=== PATIENT | male | born 1945 | race Caucasian/White ===

== ENCOUNTER → 2016-08-04 | Outpatient (CLI) | payer MEDICARE, OTHER ==
--- NOTE | 2016-08-05 08:57 | EEG ---
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 Patient currently on Dilantin for seizure prophylaxis. Patient being evaluated for possibility of weaning off of Dilantin pending EEG results. Patient has history of alcohol abuse and has not had drinks in over 18 months. AGE: 71Y EEG FINDINGS: A routine 21-channel, awake digital EEG recording was accomplished utilizing the 10 to 20 international system with bipolar and referential montages. The background activity in the most alert resting state consists of a low to medium amplitude, fairly well-developed and well-sustained 6 Hz activity over the posterior head regions. This posterior rhythm attenuates to eye opening. There is a small amount of low amplitude 18 to 20 Hz beta activity seen maximally over the anterior head regions. Muscle and movement artifact was observed on a few occasions during the tracing. Hyperventilation was not performed. Photic stimulation at flash frequencies of 2 to 30 Hz produced a minimal occipital driving response. No epileptiform discharges were seen. Towards the latter portion of the tracing, the patient does drift into spontaneous drowsiness. IMPRESSION: This EEG is moderately abnormal due to diffuse slowing of the EEG background. The EEG failed to reveal any focal, lateralized or epileptiform abnormalities. Clinical correlation is recommended.
== END | disposition home or self-care (01) ==
LOC: NEUROMAIN 12:59
PROVIDERS: ATTEND Family Medicine
DX: R56.9 Unspecified convulsions (principal)
CPT/HCPCS: 95819

== ENCOUNTER 2017-09-08 09:50 | Inpatient (IN) | payer MEDICARE, OTHER ==
--- NOTE | 2017-09-08 11:23 | ED ---
General Adult HPI - General Chief complaint: Psychiatric Symptoms Stated complaint: mental health Time Seen by Provider: 09/08/17 10:00 Source: patient, RN notes reviewed Mode of arrival: ambulatory Limitations: no limitations - History of Present Illness Initial comments: This is a 72-year-old male who presents emergency Department with his brother-in -law who is his guardian. Czorogk-rs-zws wants him to be evaluated because he is not eating is not sleeping and he is not keeping up any of his hygiene. Patient also is starting to have some delusions that his neighbors trying to kill his dog. Patient also refuses to go to bed in his bed and so he sits up in a chair which is not improving his edema or allowing the wounds on his right foot to heal. Patient also has been saying that he may be violent with his neighbor and has threatened some of the caregivers that come to the house. There is been no complaints of any physical problems per the patient and the wgujmlh-lx-miq has not noticed any problems with his breathing has not noticed the patient having any episodes of vomiting or diarrhea and the patient has not looked in any distress to the hjsmsjv-sk-nad. - Related Data Home Medications Medication Instructions Recorded Confirmed Atorvastatin [Lipitor] 40 mg PO DAILY 09/08/17 09/08/17 Metoprolol Succinate (ER) [Toprol 50 mg PO DAILY 09/08/17 09/08/17 Xl] Omeprazole 20 mg PO DAILY 09/08/17 09/08/17 QUEtiapine [SEROquel] 150 mg PO DAILY 09/08/17 09/08/17 clonazePAM [KlonoPIN] 1.5 mg PO DAILY 09/08/17 09/08/17 Allergies Allergy/AdvReac Type Severity Reaction Status Date / Time No Known Allergies Allergy Verified 09/08/17 10:36 Review of Systems ROS Statement: Those systems with pertinent positive or pertinent negative responses have been documented in the HPI. ROS Other: All systems not noted in ROS Statement are negative. Past Medical History Past Medical History: Cancer, Dementia, Hyperlipidemia Additional Past Medical History / Comment(s): prostate CA, leg ulcers History of Any Multi-Drug Resistant Organisms: None Reported Past Surgical History: No Surgical Hx Reported Past Psychological History: Schizophrenia Smoking Status: Current every day smoker Past Alcohol Use History: None Reported Past Drug Use History: None Reported General Exam - General Exam Comments Initial Comments: GENERAL: Patient is well-developed and well-nourished. Patient is nontoxic and well- hydrated and is in no acute distress. ENT: Neck is soft and supple. No significant lymphadenopathy is noted. Oropharynx is clear. Moist mucous membranes. Neck has full range of motion without eliciting any pain. EYES: The sclera were anicteric and conjunctiva were pink and moist. Extraocular movements were intact and pupils were equal round and reactive to light. Eyelids were unremarkable. PULMONARY: Unlabored respirations. Good breath sounds bilaterally. No audible rales rhonchi or wheezing was noted. CARDIOVASCULAR: There is a regular rate and rhythm without any murmurs gallops or rubs. ABDOMEN: Soft and nontender with normal bowel sounds. No palpable organomegaly was noted. There is no palpable pulsatile mass. SKIN: Skin is clear with no lesions or rashes and otherwise unremarkable. NEUROLOGIC: Patient is alert and oriented 2. Cranial nerves II through XII are grossly intact. Motor and sensory are also intact. Normal speech, volume and content. Symmetrical smile. MUSCULOSKELETAL: Normal extremities with adequate strength and full range of motion. Patient has 2 ulcerated areas on the right foot either of which appear infected at this time. Patient is following up with wound care. LYMPHATICS: No significant lymphadenopathy is noted PSYCHIATRIC: Patient is uncooperative does not want to follow any of her procedures. Patient is a very flat affect. Patient has not said anything threatening in the emergency department. Limitations: no limitations Course Vital Signs 09/08/17 09/08/17 09/08/17 09:59 12:25 13:03 Temperature 98.2 F Pulse Rate 70 Respiratory 18 18 16 Rate Blood Pressure 122/71 O2 Sat by Pulse 95 Oximetry 09/08/17 13:29 Temperature Pulse Rate Respiratory 16 Rate Blood Pressure O2 Sat by Pulse Oximetry Medical Decision Making - Medical Decision Making EKG shows sinus bradycardia 56 bpm IN interval is 126 QRS is 96 QT interval 420 QTC is 405. Patient's EKG shows no ST segment elevation or depression.. X-ray shows no acute abnormality. EPS evaluated the patient and determined the patient needed to be transferred to a geriatric psych. - Lab Data Result diagrams: 09/08/17 11:15 09/08/17 11:15 Lab Results 09/08/17 09/08/17 09/08/17 Range/Units 11:15 11:15 12:15 WBC 9.4 (3.8-10.6) k/uL RBC 4.14 L (4.30-5.90) m/uL Hgb 12.8 L (13.0-17.5) gm/dL Hct 38.0 L (39.0-53.0) % MCV 91.6 (80.0-100.0) fL MCH 30.8 (25.0-35.0) pg MCHC 33.6 (31.0-37.0) g/dL RDW 13.5 (11.5-15.5) % Plt Count 274 (150-450) k/uL Neutrophils % 56 % Lymphocytes % 21 % Monocytes % 8 % Eosinophils % 13 % Basophils % 0 % Neutrophils # 5.2 (1.3-7.7) k/uL Lymphocytes # 2.0 (1.0-4.8) k/uL Monocytes # 0.7 (0-1.0) k/uL Eosinophils # 1.2 H (0-0.7) k/uL Basophils # 0.0 (0-0.2) k/uL Sodium 136 L (137-145) mmol/L Potassium 4.8 (3.5-5.1) mmol/L Chloride 101 (98-107) mmol/L Carbon Dioxide 25 (22-30) mmol/L Anion Gap 10 mmol/L BUN 7 L (9-20) mg/dL Creatinine 0.67 (0.66-1.25) mg/dL Est GFR (CKD-EPI)AfAm >90 (>60 ml/min/1.73 sqM) Est GFR (CKD-EPI)NonAf >90 (>60 ml/min/1.73 sqM) Glucose 95 (74-99) mg/dL Calcium 8.9 (8.4-10.2) mg/dL Magnesium 1.7 (1.6-2.3) mg/dL Total Bilirubin 1.0 (0.2-1.3) mg/dL AST 19 (17-59) U/L ALT 28 (21-72) U/L Alkaline Phosphatase 95 (38-126) U/L Total Protein 6.2 L (6.3-8.2) g/dL Albumin 3.8 (3.5-5.0) g/dL Urine Color Yellow Urine Appearance Clear (Clear) Urine pH 8.0 (5.0-8.0) Ur Specific [place] 1.005 (1.001-1.035) Urine Protein Negative (Negative) Urine Glucose (UA) Negative (Negative) Urine Ketones Negative (Negative) Urine Blood Negative (Negative) Urine Nitrite Negative (Negative) Urine Bilirubin Negative (Negative) Urine Urobilinogen 2.0 (<2.0) mg/dL Ur Leukocyte Esterase Negative (Negative) Urine Opiates Screen Not Detected (NotDetected) Ur Oxycodone Screen Not Detected (NotDetected) Urine Methadone Screen Not Detected (NotDetected) Ur Propoxyphene Screen Not Detected (NotDetected) Ur Barbiturates Screen Not Detected (NotDetected) U Tricyclic Antidepress Detected H (NotDetected) Ur Phencyclidine Scrn Not Detected (NotDetected) Ur Amphetamines Screen Not Detected (NotDetected) U Methamphetamines Scrn Not Detected (NotDetected) U Benzodiazepines Scrn Not Detected (NotDetected) Urine Cocaine Screen Not Detected (NotDetected) U Marijuana (THC) Screen Not Detected (NotDetected) Disposition Clinical Impression: Aggressive behavior, Dementia, Foot ulceration Disposition: TRANSFER TO PSYCH HOSP/UNIT Referrals: Chandler Chand MD [Primary Care Provider] - 1-2 days Time of Disposition: 14:39
[2017-09-08 11:38] LABS: Basophils % (A) 0 %; Eosinophils # (A) 1.2 k/uL (0-0.7); Eosinophils % (A) 13 %; HGB 12.8 gm/dL (13.0-17.5); Lymphocytes % (A) 21 %; MCH 30.8 pg (25.0-35.0); MCHC 33.6 g/dL (31.0-37.0); MCV 91.6 fL (80.0-100.0); Mean Platelet Volume 6.4; Monocytes # (A) 0.7 k/uL (0-1.0); Monocytes % (A) 8 %; Neutrophils # (A) 5.2 k/uL (1.3-7.7); Neutrophils % (A) 56 %; Platelet Count 274 k/uL (150-450); RBC 4.14 m/uL (4.30-5.90); RDW 13.5 % (11.5-15.5); WBC 9.4 k/uL (3.8-10.6)
[2017-09-08 11:40] LABS: ALT 28 U/L (21-72); AST 19 U/L (17-59); Albumin 3.8 g/dL (3.5-5.0); Alkaline Phosphatase 95 U/L (38-126); Anion Gap 10 mmol/L; Blood Urea Nitrogen 7 mg/dL (9-20); Calcium 8.9 mg/dL (8.4-10.2); Carbon Dioxide 25 mmol/L (22-30); Chloride 101 mmol/L (98-107); Glucose 95 mg/dL (74-99); Magnesium 1.7 mg/dL (1.6-2.3); Potassium 4.8 mmol/L (3.5-5.1); Sodium 136 mmol/L (137-145); Total Protein 6.2 g/dL (6.3-8.2)
--- NOTE | 2017-09-08 12:05 | XR ---
EXAMINATION TYPE: XR chest 2V DATE OF EXAM: 09/08/2017 COMPARISON: NONE HISTORY: Difficulty breathing TECHNIQUE: Frontal and lateral views of the chest are obtained. FINDINGS: There are left-sided rib fractures thought likely to be chronic, suspect there is some hea ling present. No pneumothorax or pleural effusion. Patient is rotated. Cardiac mediastinal silhouette , pulmonary vascularity and jil within normal limits. The aorta is dense. No focal airspace disease. IMPRESSION: Suspect old trauma. Correlate for appropriate history.
[2017-09-08 12:35] LABS: Appearance,Urine Clear (Clear); Bilirubin,Urine Negative (Negative); Blood,Urine Negative (Negative); Color,Urine Yellow; Glucose,Urine (UA) Negative (Negative); Ketones,Urine Negative (Negative); Leukocyte Esterase,Urine Negative (Negative); Nitrite,Urine Negative (Negative); Protein,Urine Negative (Negative); Specific Gravity,Urine 1.005 (1.001-1.035)
[2017-09-08 12:46] LABS: Amphetamine Screen,Urine Not Detected (NotDetected); Barbiturate Screen,Urine Not Detected (NotDetected); Benzodiazepines Screen,Urine Not Detected (NotDetected); Cocaine Screen,Urine Not Detected (NotDetected); Methadone Screen, Urine Not Detected (NotDetected); Opiate Screen,Urine Not Detected (NotDetected); Oxycodone Screen, Urine Not Detected (NotDetected); Phencyclidine Screen,Urine Not Detected (NotDetected); Tricyclic Antidepressant,Urine Detected (NotDetected); Urn Cannabinoid Scrn Not Detected (NotDetected)
[2017-09-08] MEDS ORDERED: LORazepam 1 MG TAB PO STA ×2 (12:56→16:56)
[2017-09-08] MEDS ORDERED: OLANZapine ODT 10 MG TAB PO STA (17:56)
[2017-09-08] MEDS ORDERED: MAGNESIUM HYDROXIDE 2,400 MG/10 ML CUP PO PRN (20:37)
[2017-09-08] MEDS ORDERED: MAG HYDROX/AL HYDROX/SIMETH 30 ML CUP PO PRN (20:37)
[2017-09-08] MEDS ORDERED: OLANZapine 10 MG TAB PO STA (21:33)
[2017-09-08] MEDS ORDERED: QUEtiapine 50 MG TAB PO SCH (23:00)
[2017-09-09 00:12] VITALS: BMI 24.0
[2017-09-09] MEDS ORDERED: clonazePAM 0.5 MG TAB PO SCH (09:00)
[2017-09-09] MEDS: NICOTINE 14MG/24HR PATCH TRANSDERM SCH (09:03)
[2017-09-09] MEDS: PANTOPRAZOLE 40 MG TABLET PO SCH (09:04)
[2017-09-09] MEDS: METOPROLOL SUCCINATE (ER) 50 MG TAB.ER.24H PO SCH (09:04)
[2017-09-09] MEDS: ATORVASTATIN 40 MG TAB PO SCH (09:04)
[2017-09-09 14:35] LABS: Hemoglobin A1C 5.9 % (4.0-6.0)
[2017-09-09] MEDS ORDERED: OLANZapine 5 MG TAB PO ONE (18:15)
--- NOTE | 2017-09-09 19:19 | HP ---
HISTORY AND PHYSICAL DATE OF SERVICE: 09/09/2017 IDENTIFYING DATA: Patient is a 72-year-old male. The patient resides at home with help from caregivers. He was admitted through the emergency room. CHIEF COMPLAINT: The patient was having delusions including believing neighbors were trying to kill his dog. He had poor appetite and sleep. He had poor self care. He has a diagnosis of dementia. HISTORY OF PRESENTING ILLNESS: I only have limited information available. The patient was not able to provide any history and simply was confused about his circumstances. His kqjbzyn-ro-eox brought him to the emergency room stating that he had not been eating, not been sleeping and was not taking care of personal hygiene. He started talking about how he believe neighbors were trying to kill his dog. Eqenava-wj-pcf indicated that he would refuse to go to bed and would sit up in a chair. He developed edema in the lower extremities and was having problems with a wound on the heel of his right foot that was not healing. The patient had made threats of violence towards his neighbor as well as threats towards the caregivers who were coming to the house. Current psychotropic medications that had been prescribed prior to admission include Seroquel 150 mg a day and Klonopin 1.5 mg a day. There is no information available about the basis for his being on those medications. He is admitted for further evaluation. SUBSTANCE USE HISTORY: Uncertain. PAST MEDICAL HISTORY: The patient currently is on omeprazole, metoprolol and Lipitor. Please refer to medical consultation for further details. FAMILY AND SOCIAL HISTORY: Uncertain. MENTAL STATUS EXAM: Patient was wandering in and out of his room and into the boswell. He would stand and stare. He made various brief comments that were not connected to his current situation. He was not able to answer any questions with meaningful response. He was focused on asking for his shoes. He was quite restless. He seemed to seek some kind of reassurance from 1 on 1 staff who were with him though again his thoughts were vague and disconnected. His affect was anxious. His mood was dysphoric. He did not seem significantly distressed. There was no immediate evidence for thought disorder. On cognitive exam, the patient was not able to answer any formal cognitive questions. He did not know where he was or any of his current circumstances. ASSESSMENT: This 72-year-old male is diagnosed with dementia with behavioral disturbance. He has psychotic symptoms that could relate to depression and/or his dementia. Stressors appear to be primarily related to progression of his cognitive difficulties and inability to manage himself independently, even with the supportive caregivers. DIAGNOSES: 1. Dementia with behavioral disturbance. 2. Rule out major depression. 3. Dementia related psychosis. 4. Hypertension. 5. Hyperlipidemia. 6. Prostate cancer. 7. Leg ulcers. RECOMMENDATION: Patient will be admitted for comprehensive medical psychiatric and psychosocial evaluation. We will engage the patient in individual and group therapeutic activities. I will discontinue Seroquel. Some of the patient's restlessness may relate to acathisia from Seroquel. I will start him on Zyprexa 5 mg 3 times a day as an alternative. I will discontinue Klonopin. The concern for Klonopin is potential exacerbation of cognitive difficulties. He will be evaluated for mood disorder with consideration for starting an antidepressant. We will focus on stabilization and discharge planning. MMBROOKE / LALA: [id number] /
[2017-09-09] MEDS ORDERED: QUEtiapine 50 MG TAB PO SCH (21:00)
[2017-09-09] MEDS: OLANZapine 5 MG TAB PO SCH (22:33)
[2017-09-10] MEDS: ACETAMINOPHEN TAB 325 MG TAB PO PRN ×3 (02:48→20:10)
--- NOTE | 2017-09-10 05:01 | CONS ---
CONSULTATION DATE OF SERVICE: 09/09/2017. REASON FOR CONSULTATION: Right leg wound. HISTORY OF PRESENT ILLNESS: The patient is a 72-year-old male who follows with us in the wound care for treatment of his right lower extremity wound, venous stasis ulcer, currently being treated with Santyl and dressing. The patient has been brought into the ER at [facility] by his brother in law, who is his guardian. Apparently the patient has not been eating or sleeping and is not keeping up with his hygiene. The patient seemed to be slightly saying that his neighbors tried to kill his dog. The patient refused to go to the bed. He has been sitting up in chair all the time. With these symptoms, the patient has been brought to the ER and subsequently has been admitted to the psych floor for further management of the same. Infectious Disease was consulted for management of his lower extremity wound. The patient is currently afebrile. He denies significant pain to the right leg wound area. No significant drainage present. No chest pain. No abdominal pain. No diarrhea. REVIEW OF SYSTEMS: Positive points have been mentioned in HPI. Other systems have been negative. PAST MEDICAL HISTORY: Significant for hyperlipidemia, dementia, prostate cancer, and lower extremity weakness schizophrenia. SOCIAL HISTORY: Current everyday smoker. No drinking or drug use. FAMILY HISTORY: No pertinent findings noticed. ALLERGIES: No known drug allergies. MEDICATIONS: Include the patient is currently on Tylenol, Maalox, Lipitor, Toprol-XL, nicotine patch, Zyprexa and Protonix. EXAMINATION: Blood pressure 128/73 with a pulse of 59, temperature 98.3. He is 91% on room air. General description is an elderly male up in the chair in no distress. No tachypnea or accessory muscles of respiration use. HEENT: Shows no pallor or scleral icterus. Oral mucosa is moist with no thrush. Neck: Trachea central. No thyromegaly. Lungs unlabored breathing. Clear to auscultation anteriorly. No wheeze or crackles. Heart S1, S2. Regular rate and rhythm. Abdomen soft. No tenderness. Right leg does have a wound on the medial aspect as well as the medial foot. Currently with no soft tissue surrounding erythema. Neurological: Patient is awake, alert, oriented x1. Mood and affect normal. LABS: Hemoglobin is 12.1, white count of 9.4, BUN of 7, creatinine 0.67. White count has been normal. Liver enzymes are normal. Urine is negative. Urine drug screen positive for tricyclics. DIAGNOSTIC IMPRESSION AND PLAN: Patient with right leg venous stasis ulcer currently with no evidence of any cellulitis. No significant slough tissue. Will continue local wound care. No need for systemic antibiotic therapy. PLAN: 1. Aquacel dressing to the wound to the right medial leg as well as the foot area followed by a light Ricky wrap to keep some of the swelling down. 2. No need for systemic antibiotic therapy. Thank you for this consultation. Will follow this patient along with you. MMODL / IJN: [id number] /
[2017-09-10] MEDS ORDERED: HALOPERIDOL LACTATE 5 MG/ML 1 ML VIAL IM STA (08:11)
[2017-09-10] MEDS: OLANZapine 5 MG TAB PO SCH ×3 (08:27→20:10)
[2017-09-10] MEDS: PANTOPRAZOLE 40 MG TABLET PO SCH (08:27)
[2017-09-10] MEDS: ATORVASTATIN 40 MG TAB PO SCH (08:27)
[2017-09-10] MEDS: METOPROLOL SUCCINATE (ER) 50 MG TAB.ER.24H PO SCH (09:07)
[2017-09-10] MEDS: NICOTINE 14MG/24HR PATCH TRANSDERM SCH (09:08)
--- NOTE | 2017-09-10 17:56 | PN ---
PROGRESS NOTE DATE OF SERVICE: 09/10/2017. CHIEF COMPLAINT: The patient was having delusions including believing neighbors were trying to kill his dog. He had poor appetite and sleep. He had poor self-care. He has a diagnosis of dementia. INTERVAL HISTORY: The patient has been doing fair. He had a quiet evening last night. Staff documented at 5:45 am the following "patient only slept 1 hour as of 545. Patient remains on 1-1 precautions for safety. Patient is confused, restless asked the same questions repeatedly. No concerns at this time." As of 09/09/2017 at 5:45 am. Staff documented today at 2:46 pm the following, "The patient was getting tag agitated and aggressive with staff. The patient was given his 4 o'clock Zyprexa." The patient has been wondering about today. We continue with 1 to 1. He presents pretty much the same today as was noted this morning. He has a good appetite. He has been generally cooperative. When I saw the patient, he gave me some eye contact. He made a few random comments though it was hard to understand what he was saying. He had a quiet manner. He was out in the boswell area with his 1 on 1 staff. He did not show any purposeful activity or behavior. ASSESSMENT: I will continue the current diagnosis and treatment plan. I will continue psychotropic medications the same. Patient continues to struggle with some behavioral issues, though seems to be making little progress. He appears to tolerate his medications. We will continue to focus on stabilization and discharge planning. I reviewed medical record and reviewed progress with staff. The patient was interviewed. CROW / LALA: [id number] /
[2017-09-11] MEDS: ACETAMINOPHEN TAB 325 MG TAB PO PRN ×2 (00:33→21:57)
[2017-09-11] MEDS: PANTOPRAZOLE 40 MG TABLET PO SCH (09:31)
[2017-09-11] MEDS: ATORVASTATIN 40 MG TAB PO SCH (09:32)
[2017-09-11] MEDS: METOPROLOL SUCCINATE (ER) 50 MG TAB.ER.24H PO SCH (09:32)
[2017-09-11] MEDS: OLANZapine 5 MG TAB PO SCH ×3 (09:32→21:37)
[2017-09-11] MEDS: NICOTINE 14MG/24HR PATCH TRANSDERM SCH ×2 (09:36→15:41)
--- NOTE | 2017-09-11 14:43 | P.PN ---
Progress Note - Text Progress Note Date: 09/11/17 Interval History: Patient is a 72-year-old male who was admitted to the hospital due to threatening to hurt others and also thought that his neighbor was going to kill his dog. The patient also had not been eating well at home nor sleeping well. Patient was living in his own home but had caregivers and he was threatening them. Patient is currently on a one-to-one with staff for safety reasons, patient does intermittently become agitated. Patient when approached requested that he have 1 or 2 cigarettes, when it was explained to the patient that he could not smoke in the hospital he again requested cigarettes and again when he was told that he could not smoke in the hospital he again requested cigarettes. Patient was unable to participate in an interview. Mental Status: Appearance/Attitude: Patient is appropriately dressed, makes occasional eye contact and is unable to participate in an interview. Behavior: Patient is accompanied by staff and is pacing in the boswell Speech/Language: Patient is not spontaneous, when asked questions patient only responded that he wanted to smoke a cigarette. Thought Process: Patient has a poverty of thought, he was focused on asking for a cigarette and was unable to follow most redirection Thought Content: Unable to assess as the patient is unable to participate in an interview Suicidal/Homicidal Ideation: Unable to assess Sensorium/Cognition: Patient is alert and oriented to person further assessment and is not obtained as the patient was not cooperative with the interview Mood/Affect: Patient's mood remains irritable Insight/Judgment: Patient's insight and judgment are impaired Assessment: Patient was admitted after threatening caregivers as well as thinking his neighbors were trying to kill his dog. Patient also apparently was not eating or sleeping well at home. Patient was admitted and placed on Zyprexa 5 mg 3 times a day changed from Klonopin 1.5 mg a day and Seroquel 150 mg a day. In reviewing the chart the patient was evaluated in August 2016 with an EEG to discontinue Dilantin which of been started for alcohol related seizure disorder. At that time the patient had been sober for 18 months. Patient is continued on a one-to-one for safety, he ate some of his meals today and drank ensure and he slept about 4 hours last night. Patient is not attending groups or activities. Plan: Patient will continue on Zyprexa 5 mg 3 times a day if his sleep does not improve may adjust the medication to load more of the dosage at night. Patient has a neurocognitive disorder unknown etiology, per the chart has a history of alcohol use in the past with alcohol related seizures. Patient continues to require hospitalization to stabilize his behavior prior to his being returned to his living situation. Patient's TSH was on the low side we will check his free T4, B12 and folate level.
[2017-09-12 07:23] VITALS: RESP 18; TEMP 98
[2017-09-12] MEDS: PANTOPRAZOLE 40 MG TABLET PO SCH (08:41)
[2017-09-12] MEDS: NICOTINE 14MG/24HR PATCH TRANSDERM SCH (08:41)
[2017-09-12] MEDS: OLANZapine 5 MG TAB PO SCH (08:41)
[2017-09-12] MEDS: ATORVASTATIN 40 MG TAB PO SCH (08:41)
[2017-09-12] MEDS: METOPROLOL SUCCINATE (ER) 50 MG TAB.ER.24H PO SCH (08:41)
--- NOTE | 2017-09-12 12:27 | P.PN ---
Progress Note - Text Progress Note Date: 09/12/17 Interval History: Patient is a 72-year-old male who was seen in his room today. Patient is accompanied by staff that he is on a one-to-one for safety. Patient reported that he has a headache but was unable to elaborate further. Staff reports that patient was able to feed himself once he was given the proper utensil and then reminded to continue eating. Staff also reported that the patient does indicate when he needs to use the bathroom and is able to toilet himself without assistance. Patient slept for only 45 minutes last evening. Mental Status: Appearance/Attitude: Patient is appropriately dressed, makes intermittent eye contact and is cooperative. Behavior: Patient does not exhibit any psychomotor agitation or retardation. Speech/Language: Patient was not spontaneous, he speaks in a normal volume and rhythm his answers are brief 1-2 word responses Thought Process: Patient's response to questions are brief with 1-2 word responses at times no response to questions Thought Content: Patient is not responding to internal stimuli and no paranoid or delusional ideation is elicited are noted. Patient slept for 45 minutes last evening, needs assistance and direction when he is eating. Suicidal/Homicidal Ideation: Patient is not voicing any suicidal or homicidal ideation at this time Sensorium/Cognition: Patient is alert and oriented to person only, is unable to tell me current situation, city or year. Patient's recent and remote memory were not tested, patient has been diagnosed with a neurocognitive disorder. Mood/Affect: Patient's mood is cooperative and his affect is slightly blunted Insight/Judgment: Patient's insight and judgment are impaired Assessment: Patient remains with one-to-one staffing due to safety concerns, there is been no evidence of any aggressive or assaultive behavior. Patient has been cooperative with staff. Patient has been voicing his need to use the bathroom and does not require assistance with this. Patient does require assistance in eating giving him the proper utensil and reminding him to continue eating. Patient is not sleeping well only about 45 minutes a night. Patient is not attending groups or activities. He is not voicing any delusional ideation at this time. Plan: As the patient's diastolic blood pressure has dropped somewhat with the use of Zyprexa and the fact that the patient is not sleeping well and the likelihood of his blood pressure dropping further with an increase in the Zyprexa dose will change the patient's medication to Seroquel. We will begin Seroquel 25 mg in the morning and in the afternoon and begin 100 mg at bedtime and continue to titrate the dose at bedtime to target his lack of sleep and and target his delusional paranoid ideation. Patient's free T4 returned within normal limits. Patient's discharge plans were discussed in team treatment meeting and the patient will most likely not be able to return home. Patient continues to require hospitalization.
[2017-09-12] MEDS ORDERED: QUEtiapine 25 MG TAB PO SCH (15:00)
[2017-09-12 17:14] LABS: Folate, Serum 17.4 ng/mL
[2017-09-12] MEDS: ACETAMINOPHEN TAB 325 MG TAB PO PRN (20:24)
[2017-09-12] MEDS ORDERED: QUEtiapine 100 MG TAB PO SCH (21:00)
[2017-09-13] MEDS: QUEtiapine 50 MG TAB PO SCH ×2 (08:38→15:09)
[2017-09-13] MEDS: METOPROLOL SUCCINATE (ER) 50 MG TAB.ER.24H PO SCH (08:38)
[2017-09-13] MEDS: ATORVASTATIN 40 MG TAB PO SCH (08:38)
[2017-09-13] MEDS: PANTOPRAZOLE 40 MG TABLET PO SCH (08:38)
[2017-09-13] MEDS: NICOTINE 14MG/24HR PATCH TRANSDERM SCH (08:38)
[2017-09-13] MEDS: ACETAMINOPHEN TAB 325 MG TAB PO PRN (08:38)
--- NOTE | 2017-09-13 15:41 | P.PN ---
Progress Note - Text Progress Note Date: 09/13/17 Interval History: Patient is a 72-year-old male who was seen today in his room. Patient was up pacing in the room and needed to have questions addressed to him in a loud voice close by the patient is hard of hearing. Patient continued to pace during the interview trying to shut the door to the room and would respond with brief answers. Most of his responses today were yes or no or asking what was said. Patient has not been showering and refused to allow medical doctor to examine his lower legs. Patient was more agitated this morning and again slept for less than an hour last night. Mental Status: Patient is dressed casually, pacing in the room during the interview, questions need to be spoke in a loud voice close to the patient as he is hard of hearing. Patient becomes increasingly irritated with questions and responds to most of them "what". When he does answer a question is using really yes or no. Patient refused to eat lunch when it was brought into the room lifting the lid off of the addition stating take it away. Patient does not respond to further questions, his mood is easily irritated with questions. Assessment: Patient remains on a one-to-one due to safety, he was slightly more agitated this morning due to the change in medications. He slept for 1 hour last evening. He continues to need assistance with eating, he refused to shower and refused to allow the medical doctor to examine his legs. Patient's B12, folate and T4 all within normal limits. Plan: Patient's Seroquel was increased to 50 mg twice a day in the morning and 150 mg at bedtime to target his agitation, we'll also add Celexa 10 mg in the morning to see if this will assist in decreasing his agitation. Patient will continue with one to one due to safety concerns. There is been no further episodes of assaultive behavior. Dietary consult to address his nutritional status as the patient is not eating well but is occasionally drinking and short. We will monitor his input and output. Patient will require placement upon discharge.
[2017-09-13] MEDS: MELATONIN 3 MG TABLET PO SCH (21:13)
[2017-09-13] MEDS: QUEtiapine 100 MG TAB PO SCH (21:13)
--- NOTE | 2017-09-13 23:47 | PN ---
PROGRESS NOTE DATE OF SERVICE: 09/13/2017. REASON FOR FOLLOWUP: Right leg venous stasis ulcer. INTERVAL HISTORY: I was asked by the nursing staff to come in to evaluate the patient with right leg wound which according to them seemed to have been getting worse. He did have a right lower extremity venous stasis ulcer x2, currently being treated with Aquacel silver dressing. The patient is afebrile; however, the patient has been very agitated. When I went to see the patient, he was refusing for his leg to be examined and wanted us to leave despite multiple attempts family provided. EXAMINATION: Blood pressure 149/64 with a pulse of 70, temperature of 98. He is 93% on room air. General description is an elderly male up in the room in no distress. The patient refused to be examined; hence, the wound could not be evaluated. DIAGNOSTIC IMPRESSION AND PLAN: Patient with right leg pain, currently being treated with Aquacel Silver; however, has been advised to take a picture of his wound and let me know when he would let them examine the wound. Looking at the picture, we will be able to come up with a change in his local therapy. To continue with Aquacel at this point. Continue with supportive care. MMODL / IJN: [id number] /
[2017-09-14] MEDS: IBUPROFEN 400 MG TAB PO PRN ×2 (04:13→16:02)
[2017-09-14] MEDS: CITALOPRAM HYDROBROMIDE 10 MG TAB PO SCH (08:50)
[2017-09-14] MEDS: QUEtiapine 50 MG TAB PO SCH ×2 (08:50→16:02)
[2017-09-14] MEDS: ATORVASTATIN 40 MG TAB PO SCH (08:51)
[2017-09-14] MEDS: PANTOPRAZOLE 40 MG TABLET PO SCH (08:51)
[2017-09-14] MEDS: METOPROLOL SUCCINATE (ER) 50 MG TAB.ER.24H PO SCH (08:51)
[2017-09-14] MEDS: DOCUSATE 100 MG CAP PO SCH (08:53)
[2017-09-14 08:55] VITALS: PULSE 69
[2017-09-14] MEDS: NICOTINE 14MG/24HR PATCH TRANSDERM SCH (09:05)
[2017-09-14] MEDS: ACETAMINOPHEN TAB 325 MG TAB PO PRN (11:50)
--- NOTE | 2017-09-14 15:57 | P.PN ---
Progress Note - Text Progress Note Date: 09/14/17 Interval History: Patient is a 72-year-old male who was seen today on the unit. Patient was much more engageable, making more eye contact and smiling during our conversation. Patient's responses to questions remain brief, usually one or 2 words. Patient did not report any complaints. Mental Status:Appearance/Attitude: Patient is dressed in casual clothes, was a stain on her shirt he's wearing a hat made intermittent eye contact and was cooperative Behavior: Patient did not exhibit any psychomotor agitation or retardation Speech/Language: Patient is not spontaneous in his speech is responses are one or 2 words he speaks in a normal volume and his responses are coherent Thought Process: Patient does have poverty of thought, his responses are brief and non-elaborative Thought Content: Patient does not appear to be responding to internal stimuli, he did not voice any delusional ideation and is much less guarded today. Patient reported that he slept well last night. Suicidal/Homicidal Ideation: Patient denied suicidal or homicidal ideation at this time Sensorium/Cognition: Patient is alert and oriented to person further testing was not performed Mood/Affect: Patient's mood was pleasant and his affect was brighter Insight/Judgment: Patient's insight and judgment remain impaired Assessment: Patient was seen on the unit more today and out of his room, he was more engageable and smiling today. Patient did allow nursing staff to redress his leg without difficulty. Patient has been attending some groups today and did eat breakfast and only some of his lunch. Patient slept for about 4 hours last evening. Patient has not had any episodes of any aggressive, threatening or assaultive behavior on the unit and has been cooperative with staff in taking his medications. Plan: Patient will continue on Seroquel 50 mg twice a day and 150 mg at bedtime , Celexa 10 mg daily, melatonin 3 mg at bedtime. Patient was begun on Colace 100 mg daily to target his bowel function. Patient will continue on his one to one with staff for safety reasons. Patient continues to require hospitalization to further stabilize his behavior.
[2017-09-14] MEDS: MELATONIN 3 MG TABLET PO SCH (21:07)
[2017-09-14] MEDS: QUEtiapine 100 MG TAB PO SCH (21:08)
[2017-09-15] MEDS: IBUPROFEN 400 MG TAB PO PRN ×2 (06:23→14:50)
[2017-09-15] MEDS: ATORVASTATIN 40 MG TAB PO SCH (10:05)
[2017-09-15] MEDS: PANTOPRAZOLE 40 MG TABLET PO SCH (10:05)
[2017-09-15] MEDS: METOPROLOL SUCCINATE (ER) 50 MG TAB.ER.24H PO SCH (10:06)
[2017-09-15] MEDS: CITALOPRAM HYDROBROMIDE 10 MG TAB PO SCH (10:06)
[2017-09-15] MEDS: DOCUSATE 100 MG CAP PO SCH (10:06)
[2017-09-15] MEDS: NICOTINE 14MG/24HR PATCH TRANSDERM SCH ×2 (10:06→10:52)
[2017-09-15] MEDS: QUEtiapine 50 MG TAB PO SCH ×2 (10:06→14:49)
[2017-09-15] MEDS: ACETAMINOPHEN TAB 325 MG TAB PO PRN (11:44)
[2017-09-15] MEDS ORDERED: QUEtiapine 25 MG TAB PO STA (12:45)
[2017-09-15] MEDS ORDERED: NICOTINE POLACRILEX 2 MG GUM BUCCAL PRN (12:45)
--- NOTE | 2017-09-15 14:38 | P.PN ---
Progress Note - Text Progress Note Date: 09/15/17 Interval History: Patient is a 72-year-old male who slept 6 hours last night. Patient was eating much better last night eating 75% of his breakfast, 10% of his lunch and 100% of his dinner. Patient however this morning was slightly more irritable than he has been and continues to refuse to shower. Patient has been continued to be given Tylenol alternating with ibuprofen for the pain secondary to his leg wound. Patient has also been continued on Colace. Patient was focused today on requesting cigarettes and looking for them on the unit and became increasingly agitated while doing this. Mental Status: Appearance/Attitude: Patient is casually dressed, makes intermittent eye contact, is hard of hearing Behavior: Patient did not exhibit any psychomotor retardation but became irritated during our conversation this morning Speech/Language: Patient responds to some questions with brief responses, in a normal volume and rhythm and is coherent but at times is not relevant Thought Process: Patient exhibits poverty of thought Thought Content: Patient does not appear to be responding to internal stimuli, patient slept 6 hours last night and his appetite was improved yesterday. Patient was focused today on requesting a cigarette, told me that he does not like me and refused again to shower. Patient did report that his leg was painful. Suicidal/Homicidal Ideation: Patient denied that he was feeling suicidal at this time and denied that he felt like hurting anyone Sensorium/Cognition: Patient is alert and oriented to person only Mood/Affect: Patient's mood was more irritable today and his affect was appropriate to his mood Insight/Judgment: Patient's insight and judgment are impaired Assessment: Patient appeared to be more irritable today, he was focused on finding cigarettes and continues to refuse to shower. Patient appetite yesterday was improved but patient has not had a bowel movement. Patient was willing to allow staff yesterday to change the dressing on his leg. Patient continues to be compliant with medication. His sleep is improved to 6 hours a night. Plan: Patient continue on melatonin 3 mg at bedtime, Celexa 10 mg in the morning and Seroquel 50 mg twice a day 150 mg at bedtime to target his mood, agitation. Patient remains oriented to person alone and requires a one-to-one for safety reasons area patient continues to refuse to take a shower even with encouragement. Patient will continue to be given alternate Tylenol and ibuprofen to target the pain in his leg. Patient continues on Colace on a scheduled basis. We will continue to encourage the patient to shower and changed from a nicotine patch to Nicorette gum. Patient continues to require hospitalization to stabilize his behavior and continue to look towards a supervised placement
[2017-09-15 20:20] LABS: Glucose,Whole Blood 123 mg/dL (75-99)
[2017-09-15] MEDS ORDERED: LORazepam 2 MG/ML INJ IV STA (20:38)
[2017-09-15] MEDS ORDERED: LORazepam 1 MG TAB PO PRN (20:38)
[2017-09-15] MEDS ORDERED: LORazepam 2 MG/ML INJ ONE (20:40)
[2017-09-15] MEDS ORDERED: LORazepam 2 MG/ML INJ IM PRN (20:42)
[2017-09-15 20:47] LABS: Basophils % (A) 0 %; Eosinophils # (A) 0.4 k/uL (0-0.7); Eosinophils % (A) 5 %; HCT 32.2 % (39.0-53.0); HGB 10.8 gm/dL (13.0-17.5); Lymphocytes # (A) 2.1 k/uL (1.0-4.8); Lymphocytes % (A) 23 %; MCH 30.7 pg (25.0-35.0); MCHC 33.4 g/dL (31.0-37.0); MCV 91.9 fL (80.0-100.0); Mean Platelet Volume 7.2; Monocytes # (A) 0.8 k/uL (0-1.0); Monocytes % (A) 8 %; Neutrophils # (A) 5.5 k/uL (1.3-7.7); Neutrophils % (A) 60 %; Platelet Count 209 k/uL (150-450); RBC 3.51 m/uL (4.30-5.90); RDW 13.5 % (11.5-15.5); WBC 9.2 k/uL (3.8-10.6)
[2017-09-15 20:53] LABS: Anion Gap 13 mmol/L; Blood Urea Nitrogen 15 mg/dL (9-20); Calcium 8.3 mg/dL (8.4-10.2); Carbon Dioxide 19 mmol/L (22-30); Chloride 90 mmol/L (98-107); Glucose 107 mg/dL (74-99); Magnesium 1.3 mg/dL (1.6-2.3); Potassium 4.5 mmol/L (3.5-5.1); Sodium 122 mmol/L (137-145)
[2017-09-15] MEDS ORDERED: HALOPERIDOL LACTATE 5 MG/ML 1 ML VIAL IM STA (21:19)
[2017-09-15] MEDS ORDERED: SODIUM CHLORIDE 0.9% 2,000 ML IV ONE (21:21)
[2017-09-15] MEDS ORDERED: Magnesium Replacement Protocol 1 EACH MISC MISCELLANE PRN (21:22)
[2017-09-15] MEDS ORDERED: MAGNESIUM SULFATE-D5W PMX 1 GM in DEXTROSE/WATER 1 100ML.BAG IVPB SCH (22:00)
[2017-09-15] MEDS: MELATONIN 3 MG TABLET PO SCH (22:10)
[2017-09-15] MEDS: QUEtiapine 100 MG TAB PO SCH (22:10)
--- NOTE | 2017-09-15 22:47 | CT ---
EXAMINATION TYPE: CT brain wo con DATE OF EXAM: 09/15/2017 COMPARISON: None HISTORY: Seizure activity today. CT DLP: 801.5 mGycm Automated exposure control for dose reduction was used. FINDINGS: There is moderate cerebral cortical atrophy. There is no mass effect nor midline shift. There is no s ign of intracranial hemorrhage. Calvarium is intact. IMPRESSION: CEREBRAL ATROPHY. CHRONIC SMALL VESSEL ISCHEMIA.
[2017-09-16 00:08] VITALS: BP 198/84
[2017-09-16] MEDS ORDERED: QUEtiapine 25 MG TAB PO SCH (09:00)
== END 2017-09-15 22:35 | disposition short-term general hospital (02) | DRG 884 ==
LOC: EEVIPCON 09:50 → EC 09:50 → 3MHU 20:17 → EEVIPCON 20:17
PROVIDERS: ADMIT Psychiatry & Neurology Psychiatry; ATTEND Psychiatry & Neurology Psychiatry
DX: F03.91 Unspecified dementia, unspecified severity, with behavioral disturbance (principal); C61 Malignant neoplasm of prostate; E78.5 Hyperlipidemia, unspecified; F17.200 Nicotine dependence, unspecified, uncomplicated; F20.9 Schizophrenia, unspecified; G40.909 Epilepsy, unspecified, not intractable, without status epilepticus; H91.90 Unspecified hearing loss, unspecified ear; I10 Essential (primary) hypertension; I83.019 Varicose veins of right lower extremity with ulcer of unspecified site; Z79.899 Other long term (current) drug therapy
CPT/HCPCS: 36415; 70450; 71046; 80048; 80053; 80061; 80306; 81003; 82075; 82607; 82746; 83036; 83605; 83735; 84439; 84443; 85025; 93005; 99285

== ENCOUNTER 2017-09-15 22:21 | Inpatient (IN) | payer MEDICARE, OTHER ==
[2017-09-15] MEDS ORDERED: VANCOMYCIN IV PER PHARMACY 1 EACH MISC MISCELLANE PRN (23:18)
[2017-09-16] MEDS: HALOPERIDOL LACTATE 5 MG/ML 1 ML VIAL IM PRN ×4 (00:23→20:13)
[2017-09-16] MEDS: VANCOMYCIN 1,500 MG in SODIUM CHLORIDE 0.9% 250 ML IVPB SCH ×2 (01:08→12:27)
[2017-09-16 06:57] LABS: Basophils % (A) 0 %; Eosinophils # (A) 0.3 k/uL (0-0.7); Eosinophils % (A) 3 %; HCT 32.4 % (39.0-53.0); HGB 11.2 gm/dL (13.0-17.5); Lymphocytes # (A) 1.1 k/uL (1.0-4.8); Lymphocytes % (A) 14 %; MCH 31.2 pg (25.0-35.0); MCHC 34.5 g/dL (31.0-37.0); MCV 90.4 fL (80.0-100.0); Monocytes # (A) 0.8 k/uL (0-1.0); Monocytes % (A) 10 %; Neutrophils # (A) 5.6 k/uL (1.3-7.7); Neutrophils % (A) 69 %; Platelet Count 228 k/uL (150-450); RBC 3.58 m/uL (4.30-5.90); RDW 13.6 % (11.5-15.5); WBC 8.1 k/uL (3.8-10.6)
[2017-09-16] MEDS: SODIUM CHLORIDE 0.9% 1,000 ML IV SCH ×2 (06:59→20:15)
[2017-09-16 07:18] LABS: Anion Gap 10 mmol/L; Blood Urea Nitrogen 11 mg/dL (9-20); Carbon Dioxide 19 mmol/L (22-30); Chloride 98 mmol/L (98-107); Glucose 99 mg/dL (74-99); Potassium 3.7 mmol/L (3.5-5.1); Sodium 127 mmol/L (137-145)
--- NOTE | 2017-09-16 15:53 | EEG ---
ELECTROENCEPHALOGRAM REPORT DATE OF EE09/16/2017 ELECTROENCEPHALOGRAPHIC EXAMINATION REPORT: INDICATION FOR EXAMINATION: This patient is a 72-year-old male being evaluated for new-onset seizure and confusion. Patient has history of underlying dementia and psychiatric history. AGE: [age]. EEG FINDINGS: A routine 21-channel awake digital EEG recording was accomplished utilizing the 10-20 international system with bipolar and referential montages. The background activity in the most alert resting state consists of a low to medium amplitude, fairly well developed and well sustained 6-7 Hz activity over the posterior head regions. This posterior rhythm attenuates to eye opening. There is a small amount of low amplitude 18-20 Hz beta activity seen maximally over the anterior head regions. Muscle and movement artifact was observed on a few occasions during the tracing. Hyperventilation was not performed. Photic stimulation at flash frequencies of 2-30 Hz produced a minimal occipital driving response. No epileptiform discharges were seen. IMPRESSION: This EEG is moderately abnormal in a diffuse fashion due to slowing of the EEG background. The EEG failed to reveal any focal, lateralized, or epileptiform abnormalities. Clinical correlation is recommended. MMODL / IJN: [id number] /
--- NOTE | 2017-09-16 16:07 | P.CN ---
Psychiatric Consult - . Consult date: 09/16/17 Consult:: 09/16/17 15:55 IDENTIFYING DATA: 72-year-old single male patient HPI: Patient is admitted to the medical floor [facility] as a transfer from the psychiatric unit. Per history he was admitted due to concern of seizure on the mental health unit. Per chart history the patient had been admitted to the mental health unit with concerns of delusions regarding the neighbors trying to kill his dog and was exhibiting poor appetite sleep and self -care. Per chart history he had apparently made some threats to his neighbor and caregivers. He is admitted to the mental health unit originally with dementia with behavioral disturbance and dementia related psychosis. When asked the patient how he is feeling he says is not feeling very good. I did call and talk to his guardian Blake to obtain further history as the patient was unable to give much history. PAST PSYCHIATRIC HISTORY: Patient admitted been admitted to the psychiatric unit as above. He had his most recent psychotropic medications of Seroquel and Klonopin. On the psychiatric unit he was changed to Zyprexa initially but then most recently was on Seroquel and Celexa had been added. His Klonopin had been discontinued. Per his guardian he had been on Ativan prior to Klonopin and did all right with that, he related that it seemed to have a positive affect in terms of his eating, and no negative effect was reported. PMH: Edema lower extremities, wound on the heel, hypertension, hyperlipidemia, prostate cancer, ALLERGIES: No known ALLERGIES MEDICATIONS: Haldol when necessary, nicotine patch, vancomycin CHEMICAL DEPENDENCY HISTORY: Per his guardian he had a seizure 5 years ago, was drinking at the time., He has not had alcohol for years now. FAMILY PSYCHIATRIC HISTORY: None known at this time FAMILY CHEMICAL DEPENDENCY HISTORY: None known at this time SOCIAL HISTORY: Per chart history he has been living at home with help from caregivers. His guardian relays that the goal is to get him to a supervised living setting. MENTAL STATUS EXAM: He is alert, hard of hearing. He does not show any significant agitation at this point in time. he does not answer question regarding mood. He is not oriented to place or date. He says the date as the "." He is oriented to person. He does not make any reference to thoughts of harm to self or others. IMPRESSIONS: Major neurocognitive disorder with behavioral disturbance. PLAN: At this time we'll decrease the dosage of Haldol from 5 mg to 2 mg as needed. Monitor for any side effects. Haldol will be maintained on a lower dose as needed for any significant agitation. As we are decreasing the dose of Haldol will initiate Ativan as needed for agitation, he has been on Ativan before which seemed to give some benefit in terms of ability to eat. Psychiatry to follow up with patient while on the medical floor, upon medical clearance we'll look at readmission to the psychiatric unit.
[2017-09-16] MEDS ORDERED: VALPROATE SODIUM 1,000 MG in SODIUM CHLORIDE 0.9% 50 ML IVPB STA (16:16)
[2017-09-16] MEDS: NICOTINE 21MG/24HR PATCH TRANSDERM SCH (16:28)
--- NOTE | 2017-09-16 16:42 | P.CNNES ---
History of Present Illness Consult date: 09/16/17 Reason for Consult: Patient with possible seizure activity yesterday on [facility]. History of Present Illness: This patient is a 72-year-old right-handed white male who was seen today on neurology consultation for evaluation of possible new onset seizure. Patient initially was admitted to the mental health unit for further management of dementia with behavioral disturbance. Apparently he was having symptoms of acute psychosis and delirium and family petitioned him for admission to the inpatient psychiatric unit at [facility]. He was admitted there and was being treated by the psychiatrist and yesterday evening apparently had a possible seizure-like event. He became limp and slid down the wall in his room and then had some seizure-like event. He was subtotally transferred to the medical floor for further ongoing evaluation. Patient has been having symptoms of severe delusion regarding his neighbors and paranoid ideation at home. He has a history of dementia as well which is been showing increasing behavioral changes with psychosis. He was treated for these conditions and apparently was taking Seroquel and Zyprexa in the past. All of his medications were discontinued when he was transferred to the medical floor E last night. He is now currently on Haldol with a sitter at his bedside. Patient is in restraints but answers some questions appropriately. He still is very much paranoid in his ideation. He is not following very much in terms of commands at this time but tries to answer the questions to some degree. The patient underwent a routine EEG today which is reviewed and is moderately slow with no epileptiform discharges. The patient apparently has a history of seizures in the past. He is not on any anticonvulsant medication at this time. His neurological examination fails to reveal any focal weakness. He did undergo a computed tomography scan of the brain yesterday on 09/15/2017 which revealed cerebral atrophy and chronic small vessel ischemic changes. We did discuss his case today at length with Dr. Norris who is a psychiatrist seeing him today on the medical floor. We have suggested he may benefit from Depakote for treatment of mood stabilization as well as possibility of any seizure-like activity. Dr. Norris agrees with our recommendation and we will begin the patient on Depakote and continue close monitoring. We did review the results of his EEG today with Dr. Norris as well. He more likely will benefit from Depakote from a mood stabilizing effect. Dr. Norris is also going to cut back on his dose of Haldol to 2 mg every 6 hours as needed. He will require a sitter at this time and most likely will need to go back to the inpatient psychiatric unit when he is medically stable. Neurology is now been consulted for further evaluation and recommendations. Review of Systems Constitutional: Denies chills, Denies fever Eyes: denies blurred vision, denies pain Ears, nose, mouth and throat: Denies headache, Denies sore throat Cardiovascular: Denies chest pain, Denies shortness of breath Respiratory: Denies cough Gastrointestinal: Denies abdominal pain, Denies diarrhea, Denies nausea, Denies vomiting Musculoskeletal: Denies myalgias Integumentary: Denies pruritus, Denies rash Neurological: Reports change in mentation, Reports convulsions, Reports memory loss, Reports seizures, Denies numbness, Denies weakness Psychiatric: Denies anxiety, Denies depression Endocrine: Denies fatigue, Denies weight change Past Medical History Past Medical History: Cancer, Dementia, Hyperlipidemia Additional Past Medical History / Comment(s): prostate CA, leg ulcers History of Any Multi-Drug Resistant Organisms: None Reported Past Surgical History: No Surgical Hx Reported Past Psychological History: Schizophrenia Smoking Status: Current every day smoker Past Alcohol Use History: None Reported Past Drug Use History: None Reported Medications and Allergies Home Medications Medication Instructions Recorded Confirmed Type Atorvastatin [Lipitor] 40 mg PO DAILY 09/08/17 09/15/17 History Metoprolol Succinate (ER) [Toprol 50 mg PO DAILY 09/08/17 09/15/17 History Xl] Omeprazole 20 mg PO DAILY 09/08/17 09/15/17 History QUEtiapine [SEROquel] 150 mg PO DAILY 09/08/17 09/15/17 History clonazePAM [KlonoPIN] 1.5 mg PO DAILY 09/08/17 09/15/17 History Allergies Allergy/AdvReac Type Severity Reaction Status Date / Time No Known Allergies Allergy Verified 09/15/17 23:46 Physical Examination - Vital Signs Vital Signs: Vital Signs Temp Pulse Resp BP Pulse Ox 09/16/17 16:00 16 09/16/17 07:41 97 F L 60 16 97 09/16/17 07:39 17 09/16/17 04:00 97.3 F L 66 17 166/72 96 07/14/18 00:00 97.5 F L 77 17 134/57 93 L 09/15/17 22:48 97.8 F 65 17 150/65 95 Intake and Output 09/16/17 09/16/17 09/16/17 06:59 14:59 22:59 Intake Total 2550 480 Output Total 300 Balance 2250 480 Intake: IV 2300 NS 80mls/hr 2300 Intake, IV Titration 250 480 Amount Sodium Chloride 0.9% 1, 480 000 ml @ 80 mls/hr IV . [id number] [facility] Rx#:[id number] Vancomycin 1,500 mg In 250 Sodium Chloride 0.9% 250 ml @ 125 mls/hr IVPB Q12H [facility] Rx#:[id number] Output: Urine 300 Other: Voiding Method Urinal Urinal Urinal Diaper Diaper Diaper # Voids 1 Weight 86.5 kg - Constitutional General appearance: average body habitus, disheveled - EENT EENT: PERRL, mucous membranes moist - Respiratory Respiratory: lungs clear, normal breath sounds - Cardiovascular Cardiovascular: regular rate, normal S1, normal S2 Extremities: no peripheral edema bilaterally - Gastrointestinal Gastrointestinal: normoactive bowel sounds - Integumentary Integumentary: normal - Neurologic Cranial nerve examination: PERRL, EOMI, V1/V2/V3 grossly intact, face symmetric , tongue midline, intact gag reflex, intact corneal reflex, normal palatal elevation Speech examination: intact Sensorimotor examination: intact Motor examination - right side: 4/5: biceps, triceps, wrist flexion, wrist extension, supervisor looping, hip flexors, knee extensors, dorsiflexion, toe extension (EHL) , plantarflexion Motor examination - left side: 4/5: biceps, triceps, wrist flexion, wrist extension, supervisor looping, hip flexors, knee extensors, dorsiflexion, toe extension (EHL) , plantarflexion Detailed sensory examination: intact Reflex and gait examination: intact Reflexes: 1+: ankle, bicep, knee, tricep - Musculoskeletal Musculoskeletal: no pain - Psychiatric Psychiatric: agitated, cooperative Results - Laboratory Findings CBC and BMP: 09/16/17 06:38 09/16/17 06:38 Abnormal Lab Findings: Abnormal Labs 09/16/17 09/16/17 06:38 06:38 RBC 3.58 L Hgb 11.2 L Hct 32.4 L Sodium 127 L Carbon Dioxide 19 L Creatinine 0.58 L Calcium 8.0 L Assessment and Plan (1) New onset seizure Current Visit: Yes Status: Acute Code(s): R56.9 - UNSPECIFIED CONVULSIONS SNOMED Code(s): 31806524 (2) Dementia Current Visit: No Status: Acute Code(s): F03.90 - UNSPECIFIED DEMENTIA WITHOUT BEHAVIORAL DISTURBANCE SNOMED Code(s): 56403289 (3) Aggressive behavior Current Visit: No Status: Acute Code(s): R46.89 - OTHER SYMPTOMS AND SIGNS INVOLVING APPEARANCE AND BEHAVIOR SNOMED Code(s): 46416844 (4) Foot ulceration Current Visit: No Status: Acute Code(s): L97.509 - NON-PRESSURE CHRONIC ULCER OTH PRT UNSP FOOT W UNSP SEVERITY SNOMED Code(s): 84561787 Plan: This patient is a 72-year-old male initially admitted to the inpatient psychiatric unit for treatment of dementia with behavioral disturbance. Patient was petitioned to the inpatient psychiatric unit by family members as he was showing aggressive behavior as well as delusions and paranoid ideation. He underwent a computed tomography scan of the brain yesterday the results of which are noted above. There is evidence of cerebral atrophy. Yesterday on the inpatient psychiatric unit he appeared to have had a short seizure-like event. This was witnessed by nursing staff. He was transferred to the medical floor for close monitoring and further evaluation. Patient underwent routine EEG today which was reviewed. Results are as noted above. EEG is moderately slow with no epileptiform discharges seen. We did discuss this patient's case in detail today with Dr. Norris who is seeing him from psychiatry. We are recommending to start the patient on Depakote as this may have mood stabilizing effect as well as anticonvulsant property. Dr. Norris is in full agreement and we will load the patient with IV Depacon and continue maintenance Depakote for him. Once again his EEG and CAT scan results were reviewed with Dr. Norris. We will continue close neurological follow-up with the patient. We will obtain a Depakote level and adjust his dose as needed. He is being considered for transfer back to the inpatient psychiatric unit when he is medically stable. We will continue with seizure precautions. He was advised that he cannot drive and [facility] for a period of 6 months following any seizure activity. His overall prognosis at this time remains very guarded. We will continue to follow his progress during this admission. Time with Patient: Greater than 30
--- NOTE | 2017-09-16 17:18 | P.HPIM ---
History of Present Illness H&P Date: 09/16/17 Chief Complaint: Seizures Patient is a 72-year-old male with a known history of dementia, hyperlipidemia, prostate cancer and schizophrenia was initially admitted to psychiatry unit on 09/08/2017 as the patient has not been eating or sleeping and is not keeping up his hygiene. Patient was having some delusions that his neighbors trying to kill his dog. Patient refuses to go to bed and his sitting on the chair most of the time and is not allowing the wounds on his right foot to heal. Patient was come back to [facility] and was brought to the ER. Patient is being treated for acute psychosis in the psychiatric unit. Patient was seen by ID regarding his right foot wound but patient did not allow to examine at the time. On 09/15/2017 after noon patient became more agitated and was having seizure-like activity by he was in the psychiatric unit. Patient was found to have elevated lactic acid level and also his wound on the right leg is foul- smelling. Patient was eventually transferred to inpatient unit and neurology as well as ID was consulted. Patient was combative and not following commands and also having delusions last night patient was restrained. Patient was also started on Haldol along with Ativan. Patient is currently restrained and is having paranoid ideation. Patient underwent EEG today. Otherwise patient is on antibiotics in the form of vancomycin for right lower extremities infection and wound cultures were sent. CT head showed cerebral atrophy. Chronic small wasn't ischemia Sodium 122 lactic acid 3.2, magnesium 1.3 Patient otherwise denied any complaints of chest pain or shortness of breath. Patient is a poor historian. Review of Systems Review of systems could not be obtained from the patient Past Medical History Past Medical History: Cancer, Dementia, Hyperlipidemia Additional Past Medical History / Comment(s): prostate CA, leg ulcers History of Any Multi-Drug Resistant Organisms: None Reported Past Surgical History: No Surgical Hx Reported Past Psychological History: Schizophrenia Smoking Status: Current every day smoker Past Alcohol Use History: None Reported Past Drug Use History: None Reported Medications and Allergies Home Medications Medication Instructions Recorded Confirmed Type Atorvastatin [Lipitor] 40 mg PO DAILY 09/08/17 09/15/17 History Metoprolol Succinate (ER) [Toprol 50 mg PO DAILY 09/08/17 09/15/17 History Xl] Omeprazole 20 mg PO DAILY 09/08/17 09/15/17 History QUEtiapine [SEROquel] 150 mg PO DAILY 09/08/17 09/15/17 History clonazePAM [KlonoPIN] 1.5 mg PO DAILY 09/08/17 09/15/17 History Allergies Allergy/AdvReac Type Severity Reaction Status Date / Time No Known Allergies Allergy Verified 09/15/17 23:46 Physical Exam Vitals: Vital Signs Temp Pulse Resp BP Pulse Ox 09/16/17 07:41 97 F L 60 16 97 09/16/17 07:39 17 09/16/17 04:00 97.3 F L 66 17 166/72 96 09/16/17 00:00 97.5 F L 77 17 134/57 93 L 09/15/17 22:48 97.8 F 65 17 150/65 95 Intake and Output 09/15/17 09/16/17 09/16/17 22:59 06:59 14:59 Intake Total 2550 480 Output Total 300 Balance 2250 480 Intake: IV 2300 NS 80mls/hr 2300 Intake, IV Titration 250 480 Amount Sodium Chloride 0.9% 1, 480 000 ml @ 80 mls/hr IV . [id number] [facility] Rx#:[id number] Vancomycin 1,500 mg In 250 Sodium Chloride 0.9% 250 ml @ 125 mls/hr IVPB Q12H [facility] Rx#:[id number] Output: Urine 300 Other: Voiding Method Urinal Urinal Diaper Diaper # Voids 1 Weight 79 kg 86.5 kg PHYSICAL EXAMINATION: Patient is lying in the bed comfortably, no acute distress, awake alert but delusional and paranoid HEENT: Normocephalic. Neck is supple. Pupils reactive. Nostrils clear. Oral cavity is moist. Ears reveal no drainage. Neck reveals no JVD, carotid bruits, or thyromegaly. CHEST EXAMINATION: Trachea is central. Symmetrical expansion. Lung juarez clear to auscultation and percussion. CARDIAC: Normal S1, S2 with no gallops. No murmurs ABDOMEN: Soft. Bowel sounds normal. No organomegaly. No abdominal bruits. Extremities: reveal no edema. No clubbing or cyanosis. right foot wound is wrapped at this time. Neurologically awake, alert, with well-coordinated movements. No focal deficits noted. Could not provide any history. Skin: No rash or skin lesions. Psychiatric: Noncooperative. Musculoskeletal: No joint swelling or deformity. Normal range of motion. Results CBC & Chem 7: 09/16/17 06:38 09/16/17 06:38 Labs: Abnormal Lab Results - Last 24 Hours (Table) 09/16/17 09/16/17 Range/Units 06:38 06:38 RBC 3.58 L (4.30-5.90) m/uL Hgb 11.2 L (13.0-17.5) gm/dL Hct 32.4 L (39.0-53.0) % Sodium 127 L (137-145) mmol/L Carbon Dioxide 19 L (22-30) mmol/L Creatinine 0.58 L (0.66-1.25) mg/dL Calcium 8.0 L (8.4-10.2) mg/dL Microbiology - Last 24 Hours (Table) 09/16/17 05:00 Wound Culture - Preliminary Leg - Right 09/16/17 05:00 Anaerobic Culture - Preliminary Leg - Right Thrombosis Risk Factor Assmnt - DVT/VTE Prophylaxis DVT/VTE Prophylaxis: Pharmacologic Prophylaxis ordered Assessment and Plan Assessment: Dementia with behavioral changes and acute psychosis Possible new onset seizures Hyponatremia 122 Lactic acidosis Right foot wound infection Combative and violent behavior Hyperlipidemia History of prostate cancer Schizophrenia Plan: Patient will be continued on IV hydration and sodium level improved to 127 now. Patient will be continued on restraints and assess closely. Bedside sitter. Psychiatrically and neurology is following. Continue with antibiotics in the form of vancomycin. Follow up wound cultures. Patient was initially started on Haldol 5 mg every 6 when necessary and was reduced to 2 mg every 6 when necessary along with Depakote was added for mood stabilization. Further recommendations based on the clinical course. We will follow up closely Time with Patient: Greater than 30
[2017-09-16] MEDS: LORazepam 2 MG/ML INJ IM PRN (18:44)
--- NOTE | 2017-09-16 23:23 | P.CONS ---
History of Present Illness - Reason for Consult Consult date: 09/16/17 - Chief Complaint altered behavior - History of Present Illness 72-year-old male presents to the hospital emergency center under the care of his family because of change of his mental status with aggressive behavior and worsening dementia. Because of his decline of his status he was brought onto the mental health unit reduce her need to receive some intervention and new medications to help with his mood. The patient was witnessed to have a short-lived seizure while he was on the mental health unit and was transferred to the medical floor for further intervention. Infectious disease elections requested regarding the cellulitis of the right lower extremity. The patient is unable to provide any history. The nursing staff that are present relates that he has been quite agitated and even with the sitter required some restraints because of his behavior. He was hitting the staff and the profound leg restraint also Stefany was kicking the staff. At this time is modestly comfortable and when the right leg is evaluated he does not kick this observer. Seems to be slightly more calm at this time. The patient' s mental status he is able to voice no other new complaints. Review of Systems ROS unobtainable: due to mental status Past Medical History Past Medical History: Cancer, Dementia, Hyperlipidemia Additional Past Medical History / Comment(s): prostate CA, leg ulcers History of Any Multi-Drug Resistant Organisms: None Reported Past Surgical History: No Surgical Hx Reported Past Psychological History: Schizophrenia Smoking Status: Current every day smoker Past Alcohol Use History: None Reported Past Drug Use History: None Reported Medications and Allergies Home Medications and Allergies Comment(s): Current Medications Atorvastatin Calcium (Lipitor) 40 mg PO DAILY [facility] Haloperidol Lactate (Haldol) 2 mg IM Q6H PRN PRN Reason: Agitation or Acute Psychosis Last Admin: 09/16/17 20:13 Dose: 2 mg Vancomycin HCl 1,500 mg/ (Sodium Chloride) 250 mls @ 125 mls/hr IVPB Q12H [facility] Last Admin: 09/16/17 12:27 Dose: 125 mls/hr Sodium Chloride (Saline 0.9%) 1,000 mls @ 80 mls/hr IV .[id number] [facility] Last Admin: 09/16/17 20:15 Dose: 80 mls/hr Valproic Acid 750 mg/ Sodium (Chloride) 57.5 mls @ 50 mls/hr IVPB Q12H [facility] Lorazepam (Ativan) 0.5 mg IM Q8HR PRN PRN Reason: Agitation Last Admin: 09/16/17 18:44 Dose: 0.5 mg Nicotine (Habitrol 21mg/24hr Patch) 1 patch TRANSDERM DAILY [facility] Last Admin: 09/16/17 16:28 Dose: 1 patch Pantoprazole Sodium (Protonix) 40 mg PO AC-BRKFST [facility] Home Medications Medication Instructions Recorded Confirmed Type Atorvastatin [Lipitor] 40 mg PO DAILY 09/08/17 09/15/17 History Metoprolol Succinate (ER) [Toprol 50 mg PO DAILY 09/08/17 09/15/17 History Xl] Omeprazole 20 mg PO DAILY 09/08/17 09/15/17 History QUEtiapine [SEROquel] 150 mg PO DAILY 09/08/17 09/15/17 History clonazePAM [KlonoPIN] 1.5 mg PO DAILY 09/08/17 09/15/17 History Allergies Allergy/AdvReac Type Severity Reaction Status Date / Time No Known Allergies Allergy Verified 09/15/17 23:46 Physical Exam Vitals: Vital Signs Temp Pulse Resp BP Pulse Ox 09/16/17 20:00 97.1 F L 64 17 144/71 96 09/16/17 16:00 97.4 F L 63 17 143/66 96 09/16/17 07:41 97 F L 60 16 97 09/16/17 07:39 17 09/16/17 04:00 97.3 F L 66 17 166/72 96 09/16/17 00:00 97.5 F L 77 17 134/57 93 L Intake and Output 09/16/17 09/16/17 09/17/17 14:59 22:59 06:59 Intake Total 480 Balance 480 Intake: Intake, IV Titration 480 Amount Sodium Chloride 0.9% 1, 480 000 ml @ 80 mls/hr IV . [id number] [facility] Rx#:[id number] Other: Voiding Method Urinal Urinal Diaper Diaper # Voids 1 9-year-old male who appears to be less agitated this time than the staff as described even just from a short time ago. He allowed evaluation but is not able to provide any specific history. Although he is awake and alert his speech is incoherent. HEENT: Anicteric conjunctiva are pink and moist nasal mucosa grossly intact without significant lesions, there is no thrush. Neck: The neck is supple without significant lymphadenopathy or thyromegaly. Lungs: Symmetrical air entry was noted, expiratory wheezes are scattered no quoc bronchial sounds with dullness or egophony Heart: Regular rate and rhythm with an audible S1-S2, no S3 no S4. There is no significant murmur click or rub, PMI was nondisplaced. Abdomen: Positive bowel sounds soft and nontender without palpable masses or organomegaly. There was no guarding or rebound. Extremities: The upper extremities are in restraints. No lesions are seen around the restraints. IV site is intact and wrapped in place. The left lower extremity has no acute lesions. There is restraints without difficulty. Right lower extremities shows evidence of the restraint. On the restraints as gauze. The restraints is removed and the patient does not kick the observer as apparently he has done to others in the recent past. There is evidence of the swelling erythema and lateral ulceration to the ankle area. He does not complain of tenderness. It is mildly warm to touch. The erythema does not ascend significantly above the ankle. There is no significant inguinal lymphadenopathy and no other lymphadenopathy was noted. Neuro: The patient was awake and confused his speech is incoherent but he was moving upper and lower extremities. Does not seem to have focal weakness. With restraints in place as noted he is much more calm and the sitter and nursing staff are not having great difficulties with the patient at this moment. Results CBC & Chem 7: 09/16/17 06:38 09/16/17 06:38 Labs: Abnormal Lab Results - Last 24 Hours (Table) 09/16/17 09/16/17 Range/Units 06:38 06:38 RBC 3.58 L (4.30-5.90) m/uL Hgb 11.2 L (13.0-17.5) gm/dL Hct 32.4 L (39.0-53.0) % Sodium 127 L (137-145) mmol/L Carbon Dioxide 19 L (22-30) mmol/L Creatinine 0.58 L (0.66-1.25) mg/dL Calcium 8.0 L (8.4-10.2) mg/dL Microbiology - Last 24 Hours (Table) 09/16/17 05:00 Wound Culture - Preliminary Leg - Right 09/16/17 05:00 Anaerobic Culture - Preliminary Leg - Right Laboratory Results WBC 8.1 k/uL (3.8-10.6) 09/16/17 06:38 RBC 3.58 m/uL (4.30-5.90) L 09/16/17 06:38 Hgb 11.2 gm/dL (13.0-17.5) L 09/16/17 06:38 Hct 32.4 % (39.0-53.0) L 09/16/17 06:38 MCV 90.4 fL (80.0-100.0) 09/16/17 06:38 MCH 31.2 pg (25.0-35.0) 09/16/17 06:38 MCHC 34.5 g/dL (31.0-37.0) 09/16/17 06:38 RDW 13.6 % (11.5-15.5) 09/16/17 06:38 Plt Count 228 k/uL (150-450) 09/16/17 06:38 Neutrophils % 69 % 09/16/17 06:38 Lymphocytes % 14 % 09/16/17 06:38 Monocytes % 10 % 09/16/17 06:38 Eosinophils % 3 % 09/16/17 06:38 Basophils % 0 % 09/16/17 06:38 Neutrophils # 5.6 k/uL (1.3-7.7) 09/16/17 06:38 Lymphocytes # 1.1 k/uL (1.0-4.8) 09/16/17 06:38 Monocytes # 0.8 k/uL (0-1.0) 09/16/17 06:38 Eosinophils # 0.3 k/uL (0-0.7) 09/16/17 06:38 Basophils # 0.0 k/uL (0-0.2) 09/16/17 06:38 Sodium 127 mmol/L (137-145) L 09/16/17 06:38 Potassium 3.7 mmol/L (3.5-5.1) 09/16/17 06:38 Chloride 98 mmol/L (98-107) 09/16/17 06:38 Carbon Dioxide 19 mmol/L (22-30) L 09/16/17 06:38 Anion Gap 10 mmol/L 09/16/17 06:38 BUN 11 mg/dL (9-20) 09/16/17 06:38 Creatinine 0.58 mg/dL (0.66-1.25) L 09/16/17 06:38 Est GFR (CKD-EPI)AfAm >90 (>60 ml/min/1.73 sqM) 09/16/17 06:38 Est GFR (CKD-EPI)NonAf >90 (>60 ml/min/1.73 sqM) 09/16/17 06:38 Glucose 99 mg/dL (74-99) 09/16/17 06:38 Plasma Lactic Acid Messi 0.8 mmol/L (0.7-2.0) 09/16/17 00:26 Calcium 8.0 mg/dL (8.4-10.2) L 09/16/17 06:38 Magnesium 2.0 mg/dL (1.6-2.3) 09/16/17 06:38 Microbiology 09/16/17 05:00 Leg - Right Wound Culture - Preliminary 09/16/17 05:00 Leg - Right Anaerobic Culture - Preliminary Assessment and Plan (1) Cellulitis of right lower extremity Narrative/Plan: 9-year-old male who has significant underlying dementia and becoming increasing agitation the home setting and become much more violent and constantly was brought onto the mental health unit. It appears the patient had a seizure-like event and was transferred to the medical unit. At this time he seems to be much more calm and cooperative thin even is a short time ago. Doing well with the current medications. Neurologic evaluation is in process. EEG performed await results. Again patient's quite comfortable at this time. The she does have a cellulose right lower extremity and vancomycin has been initiated. Wound cultures obtained which may further help direct antibiotic therapy. Local wound care will be ordered with the Silvadene wrap if he will tolerate. Can be changed change a couple times a day. 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
[2017-09-17] MEDS: VANCOMYCIN 1,500 MG in SODIUM CHLORIDE 0.9% 250 ML IVPB SCH ×2 (00:50→12:07)
[2017-09-17] MEDS: VALPROATE SODIUM 750 MG in SODIUM CHLORIDE 0.9% 50 ML IVPB SCH ×2 (04:01→16:26)
[2017-09-17] MEDS: HALOPERIDOL LACTATE 5 MG/ML 1 ML VIAL IM PRN ×2 (06:36→21:44)
[2017-09-17 08:36] LABS: Basophils % (A) 0 %; Eosinophils # (A) 0.3 k/uL (0-0.7); Eosinophils % (A) 3 %; HCT 35.9 % (39.0-53.0); HGB 11.9 gm/dL (13.0-17.5); Lymphocytes # (A) 1.2 k/uL (1.0-4.8); Lymphocytes % (A) 13 %; MCHC 33.2 g/dL (31.0-37.0); MCV 90.5 fL (80.0-100.0); Mean Platelet Volume 6.8; Monocytes # (A) 0.8 k/uL (0-1.0); Monocytes % (A) 9 %; Neutrophils # (A) 6.4 k/uL (1.3-7.7); Neutrophils % (A) 72 %; Platelet Count 251 k/uL (150-450); RBC 3.96 m/uL (4.30-5.90); RDW 13.7 % (11.5-15.5); WBC 8.9 k/uL (3.8-10.6)
[2017-09-17 08:41] LABS: Anion Gap 9 mmol/L; Blood Urea Nitrogen 5 mg/dL (9-20); Calcium 8.6 mg/dL (8.4-10.2); Carbon Dioxide 24 mmol/L (22-30); Chloride 100 mmol/L (98-107); Glucose 120 mg/dL (74-99); Potassium 3.3 mmol/L (3.5-5.1); Sodium 133 mmol/L (137-145)
[2017-09-17] MEDS: SODIUM CHLORIDE 0.9% 1,000 ML IV SCH ×2 (08:45→20:09)
[2017-09-17 08:46] LABS: Valproic Acid (Depakene) 64.5 ug/mL
[2017-09-17] MEDS: PANTOPRAZOLE 40 MG TABLET PO SCH (08:46)
[2017-09-17] MEDS: ATORVASTATIN 40 MG TAB PO SCH (08:46)
[2017-09-17] MEDS: NICOTINE 21MG/24HR PATCH TRANSDERM SCH (08:46)
[2017-09-17] MEDS ORDERED: POTASSIUM CHLORIDE ER 20 MEQ TAB.ER PO STA (11:18)
[2017-09-17] MEDS: MULTIVITAMINS, THERA 1 EACH TAB PO SCH (12:04)
--- NOTE | 2017-09-17 14:22 | P.PN ---
Subjective Progress Note Date: 09/17/17 Principal diagnosis: Seizures Patient is a 72-year-old male with a known history of dementia, hyperlipidemia, prostate cancer and schizophrenia was initially admitted to psychiatry unit on 09/08/2017 as the patient has not been eating or sleeping and is not keeping up his hygiene. Patient was having some delusions that his neighbors trying to kill his dog. Patient refuses to go to bed and his sitting on the chair most of the time and is not allowing the wounds on his right foot to heal. Patient was come back to and [facility] and was brought to the ER. Patient is being treated for acute psychosis in the psychiatric unit. Patient was seen by ID regarding his right foot wound but patient did not allow to examine at the time. On 09/15/2017 after noon patient became more agitated and was having seizure-like activity by he was in the psychiatric unit. Patient was found to have elevated lactic acid level and also his wound on the right leg is foul- smelling. Patient was eventually transferred to inpatient unit and neurology as well as ID was consulted. Patient was combative and not following commands and also having delusions last night patient was restrained. Patient was also started on Haldol along with Ativan. Patient is currently restrained and is having paranoid ideation. Patient underwent EEG today. Otherwise patient is on antibiotics in the form of vancomycin for right lower extremities infection and wound cultures were sent. CT head showed cerebral atrophy. Chronic small wasn't ischemia Sodium 122 lactic acid 3.2, magnesium 1.3 Patient otherwise denied any complaints of chest pain or shortness of breath. Patient is a poor historian. 09/17/2017 Patient is still agitated and restrained. Cannot provide any reliable history. Otherwise no fever no chills. No commerce of chest pain or shortness of breath. Patient is being continued on Haldol and Depakote. Psychiatry and neurology on board. Possible transfer to inpatient psychiatric unit. Sodium level improved to 133 now Complete review of systems could not be obtained from the patient Current medications reviewed. Objective - Vital Signs Vital signs: Vital Signs Temp 98.1 F 09/17/17 06:41 Pulse 77 09/17/17 06:41 Resp 21 09/17/17 06:41 BP 164/84 09/17/17 06:41 Pulse Ox 95 09/17/17 06:41 Intake & Output 07/09/17/17 09/17/17 18:59 06:59 18:59 Intake Total 480 Balance 480 Weight 86.5 kg Intake: Intake, IV Titration 480 Amount Sodium Chloride 0.9% 1, 480 000 ml @ 80 mls/hr IV . [id number] [facility] Rx#:[id number] Other: Voiding Method Urinal Urinal Diaper Diaper # Voids 3 - Exam PHYSICAL EXAMINATION: Patient is lying in the bed comfortably, no acute distress, awake alert but delusional and paranoid HEENT: Normocephalic. Neck is supple. Pupils reactive. Nostrils clear. Oral cavity is moist. Ears reveal no drainage. Neck reveals no JVD, carotid bruits, or thyromegaly. CHEST EXAMINATION: Trachea is central. Symmetrical expansion. Lung juarez clear to auscultation and percussion. CARDIAC: Normal S1, S2 with no gallops. No murmurs ABDOMEN: Soft. Bowel sounds normal. No organomegaly. No abdominal bruits. Extremities: reveal no edema. No clubbing or cyanosis. right foot wound is wrapped at this time. Neurologically awake, alert, with well-coordinated movements. No focal deficits noted. Could not provide any history. Skin: No rash or skin lesions. Psychiatric: Noncooperative. Musculoskeletal: No joint swelling or deformity. Normal range of motion. - Labs CBC & Chem 7: 09/17/17 08:20 09/17/17 08:20 Labs: Abnormal Lab Results - Last 24 Hours (Table) 09/17/17 09/17/17 Range/Units 08:20 08:20 RBC 3.96 L (4.30-5.90) m/uL Hgb 11.9 L (13.0-17.5) gm/dL Hct 35.9 L (39.0-53.0) % Sodium 133 L (137-145) mmol/L Potassium 3.3 L (3.5-5.1) mmol/L BUN 5 L (9-20) mg/dL Creatinine 0.50 L (0.66-1.25) mg/dL Glucose 120 H (74-99) mg/dL Microbiology - Last 24 Hours (Table) 09/16/17 05:00 Gram Stain - Preliminary Leg - Right Wound Culture - Preliminary Gram Neg Bacilli Presumptive Staph aureus Assessment and Plan Assessment: Dementia with behavioral changes and acute psychosis Possible new onset seizures Hyponatremia 122-127--133 Lactic acidosis Right foot wound infection Combative and violent behavior Hyperlipidemia History of prostate cancer Schizophrenia Plan: Patient will be continued on IV hydration and sodium level improved to 127--133 now. Patient will be continued on restraints and assess closely. Bedside sitter. Psychiatrically and neurology is following. Continue with antibiotics in the form of vancomycin. Follow up wound cultures. Patient was initially started on Haldol 5 mg every 6 when necessary and was reduced to 2 mg every 6 when necessary along with Depakote was added for mood stabilization. Further recommendations based on the clinical course. We will follow up closely Time with Patient: Greater than 30
--- NOTE | 2017-09-17 23:42 | P.PN ---
Subjective Progress Note Date: 09/17/17 This patient is a 72-year-old male being evaluated for recent episode of new onset seizure and worsening dementia with behavioral difficulties. He was seen by Dr. Norris yesterday from psychiatry and after a long discussion with Dr. Norris we elected to start this patient on Depakote for treatment of seizure as well as mood stabilizer given his rather extensive psychiatric history. His Depakote level today is therapeutic at 64.5. The patient does have restraints for both hands today and does have a sitter at his bedside. As noted he is now therapeutic with his Depakote. Would continue close monitoring of his mood and behavior due to his history of advanced dementia with behavioral difficulties. We will await further recommendations from psychiatry. His overall prognosis at this time remains very guarded. Objective - Vital Signs Vital signs: Vital Signs Temp 98.4 F 09/17/17 15:00 Pulse 89 09/17/17 15:00 Resp 20 09/17/17 15:00 BP 162/80 09/17/17 15:00 Pulse Ox 93 L 09/17/17 15:00 Intake & Output 09/16/17 09/17/17 09/17/17 18:59 06:59 18:59 Intake Total 480 Balance 480 Weight 86.5 kg Intake: Intake, IV Titration 480 Amount Sodium Chloride 0.9% 1, 480 000 ml @ 80 mls/hr IV . [id number] [facility] Rx#:[id number] Other: Voiding Method Urinal Urinal Diaper Diaper # Voids 3 1 - Labs CBC & Chem 7: 09/17/17 08:20 09/17/17 08:20 Labs: Abnormal Lab Results - Last 24 Hours (Table) 09/17/17 09/17/17 Range/Units 08:20 08:20 RBC 3.96 L (4.30-5.90) m/uL Hgb 11.9 L (13.0-17.5) gm/dL Hct 35.9 L (39.0-53.0) % Sodium 133 L (137-145) mmol/L Potassium 3.3 L (3.5-5.1) mmol/L BUN 5 L (9-20) mg/dL Creatinine 0.50 L (0.66-1.25) mg/dL Glucose 120 H (74-99) mg/dL Microbiology - Last 24 Hours (Table) 09/16/17 05:00 Gram Stain - Preliminary Leg - Right Wound Culture - Preliminary Gram Neg Bacilli Presumptive Staph aureus Assessment and Plan (1) New onset seizure Current Visit: Yes Status: Acute Code(s): R56.9 - UNSPECIFIED CONVULSIONS SNOMED Code(s): 52369165 (2) Dementia Current Visit: No Status: Acute Code(s): F03.90 - UNSPECIFIED DEMENTIA WITHOUT BEHAVIORAL DISTURBANCE SNOMED Code(s): 83107166 (3) Aggressive behavior Current Visit: No Status: Acute Code(s): R46.89 - OTHER SYMPTOMS AND SIGNS INVOLVING APPEARANCE AND BEHAVIOR SNOMED Code(s): 73030250 (4) Foot ulceration Current Visit: No Status: Acute Code(s): L97.509 - NON-PRESSURE CHRONIC ULCER OTH PRT UNSP FOOT W UNSP SEVERITY SNOMED Code(s): 88121128 Plan: This patient is a 72-year-old male initially admitted to the inpatient psychiatric unit for treatment of dementia with behavioral disturbance. Patient was petitioned to the inpatient psychiatric unit by family members as he was showing aggressive behavior as well as delusions and paranoid ideation. He underwent a computed tomography scan of the brain yesterday the results of which are noted above. There is evidence of cerebral atrophy. Yesterday on the inpatient psychiatric unit he appeared to have had a short seizure-like event. This was witnessed by nursing staff. He was transferred to the medical floor for close monitoring and further evaluation. Patient underwent routine EEG today which was reviewed. Results are as noted above. EEG is moderately slow with no epileptiform discharges seen. We did discuss this patient's case in detail today with Dr. Norris who is seeing him from psychiatry. We are recommending to start the patient on Depakote as this may have mood stabilizing effect as well as anticonvulsant property. Dr. Norris is in full agreement and we will load the patient with IV Depacon and continue maintenance Depakote for him. Once again his EEG and CAT scan results were reviewed with Dr. Norris. We will continue close neurological follow-up with the patient. We will obtain a Depakote level and adjust his dose as needed. He is being considered for transfer back to the inpatient psychiatric unit when he is medically stable. We will continue with seizure precautions. The patient's Depakote level this morning came back therapeutic is 64.5. He should be maintained on his current dose of Depakote. He was advised that he cannot drive and state of [place] for a period of 6 months following any seizure activity. When medically stable he may be considered for transfer back to the inpatient psychiatric unit. We will continue to monitor his progress closely during this admission. His overall prognosis at this time remains very guarded.
[2017-09-18] MEDS ORDERED: VANCOMYCIN TROUGH DUE 1 EACH MISC MISCELLANE ONE
[2017-09-18] MEDS: VANCOMYCIN 1,500 MG in SODIUM CHLORIDE 0.9% 250 ML IVPB SCH ×2 (00:21→13:19)
[2017-09-18] MEDS: VALPROATE SODIUM 750 MG in SODIUM CHLORIDE 0.9% 50 ML IVPB SCH ×2 (03:23→16:35)
[2017-09-18] MEDS: LORazepam 2 MG/ML INJ IM PRN ×2 (03:55→16:36)
[2017-09-18] MEDS: NICOTINE 21MG/24HR PATCH TRANSDERM SCH (09:25)
[2017-09-18] MEDS: PANTOPRAZOLE 40 MG TABLET PO SCH (09:25)
[2017-09-18] MEDS: ATORVASTATIN 40 MG TAB PO SCH (09:26)
[2017-09-18] MEDS: SODIUM CHLORIDE 0.9% 1,000 ML IV SCH ×2 (09:26→20:11)
[2017-09-18] MEDS: MULTIVITAMINS, THERA 1 EACH TAB PO SCH (09:26)
[2017-09-18] MEDS ORDERED: MINERAL OIL-WHITE PETROLATUM 120 GM JAR TOPICAL PRN (11:20)
[2017-09-18 12:25] LABS: HCT 39.2 % (39.0-53.0); HGB 12.9 gm/dL (13.0-17.5); MCH 30.4 pg (25.0-35.0); MCHC 32.9 g/dL (31.0-37.0); MCV 92.1 fL (80.0-100.0); Mean Platelet Volume 6.6; Platelet Count 299 k/uL (150-450); RBC 4.25 m/uL (4.30-5.90); RDW 14.3 % (11.5-15.5); WBC 12.5 k/uL (3.8-10.6)
[2017-09-18 12:41] LABS: Anion Gap 12 mmol/L; Blood Urea Nitrogen 9 mg/dL (9-20); Carbon Dioxide 20 mmol/L (22-30); Chloride 104 mmol/L (98-107); Glucose 99 mg/dL (74-99); Potassium 4.3 mmol/L (3.5-5.1); Sodium 136 mmol/L (137-145)
--- NOTE | 2017-09-18 16:13 | P.PN ---
Progress Note - Text Progress Note Date: 09/18/17 Interval History: Patient is a 72-year-old male who was transferred to the medical floor after having had a seizure on the inpatient psychiatric unit. Patient was seen today and he was sleeping in bed, he is unrestrained at this time. Patient was not arousable. Mental Status: Mental status was not performed as patient was not arousable and was sleeping Assessment: Patient has been receiving Haldol 2 mg intramuscularly for severe agitation only last received it yesterday at 9:45 PM, he received Ativan 0.5 mg this morning. Patient continues on IV antibiotics and IV Depakote. Per the sitter the patient has refused to get up with physical therapy earlier today and has not eaten all weekend or been drinking much of anything. Patient on the psychiatric unit had showed improvement last while he was up and was eating smiling, however Monday became slightly more agitated and had a seizure. I suspect seizure was secondary to his hyponatremia which was most likely caused by Celexa 10 mg given for 2 days. Plan: [Patient is not taking oral medication and continues to be on IV antibiotics and IV Depakote. Patient has a history of dementia and a recent computed tomography scan so cerebral atrophy and small vessel infarcts. Depakote can certainly assist in controlling of his agitated behavior, once patient is on oral medications he can be assessed to see if additional medication such as an antipsychotic are needed. Patient at this time is not appropriate for transfer to the inpatient psychiatric unit will continue to follow the patient while he is on the medical floor.
--- NOTE | 2017-09-18 16:53 | P.PN ---
Subjective 09/18/2017 is the first time I am taking care of the patient Patient is a 72-year-old male with a known history of dementia, hyperlipidemia, prostate cancer and schizophrenia was initially admitted to psychiatry unit on 09/08/2017 as the patient has not been eating or sleeping and is not keeping up his hygiene. Patient was having some delusions that his neighbors trying to kill his dog. Patient refuses to go to bed and his sitting on the chair most of the time and is not allowing the wounds on his right foot to heal. Patient was come back to and [facility] and was brought to the ER. Patient is being treated for acute psychosis in the psychiatric unit. Patient was seen by ID regarding his right foot wound but patient did not allow to examine at the time. On 09/15/2017 after noon patient became more agitated and was having seizure-like activity by he was in the psychiatric unit. Patient was found to have elevated lactic acid level and also his wound on the right leg is foul- smelling. Patient was eventually transferred to inpatient unit and neurology as well as ID was consulted. Patient was combative and not following commands and also having delusions last night patient was restrained. Patient was also started on Haldol along with Ativan. Patient is currently restrained and is having paranoid ideation. Patient underwent EEG today. Otherwise patient is on antibiotics in the form of vancomycin for right lower extremities infection and wound cultures were sent. CT head showed cerebral atrophy. Chronic small wasn't ischemia Sodium 122 lactic acid 3.2, magnesium 1.3 Patient otherwise denied any complaints of chest pain or shortness of breath. Patient is a poor historian. 09/17/2017 Patient is still agitated and restrained. Cannot provide any reliable history. Otherwise no fever no chills. No commerce of chest pain or shortness of breath. Patient is being continued on Haldol and Depakote. Psychiatry and neurology on board. Possible transfer to inpatient psychiatric unit. Sodium level improved to 133 now 09/18/2017 Patient still agitated, he might need restraints. He cannot provide reliable history. When asking him what her name he said I don't know. In asking where he is staying again he answers I don't know. He denies to be in pain. Denies chest pain or dyspnea. Denies abdominal pain or nausea vomiting. Complete review of systems could not be obtained from the patient Objective - Vital Signs Vital signs: Vital Signs Temp 99.3 F 09/18/17 13:55 Pulse 104 H 09/18/17 13:55 Resp 20 09/18/17 13:55 BP 148/77 09/18/17 13:55 Pulse Ox 99 09/18/17 13:55 Intake & Output 09/17/17 09/18/17 09/18/17 18:59 06:59 18:59 Output Total 200 Balance -200 Output: Urine 200 Other: Voiding Method Diaper Diaper Incontinent Incontinent # Voids 1 2 2 # Bowel Movements 2 1 - Exam -GENERAL: The patient is alert and awake but confused. He is AAOX3, not in any acute distress. Agitated at times made in restraints HEENT: Pupils are round and equally reacting to light. EOMI. No scleral icterus. No conjunctival pallor. Normocephalic, atraumatic. No pharyngeal erythema. No thyromegaly. CARDIOVASCULAR: S1 and S2 present. No murmurs, rubs, or gallops. PULMONARY: Chest is clear to auscultation, no wheezing or crackles. ABDOMEN: Soft, nontender, nondistended, normoactive bowel sounds. No palpable organomegaly. MUSCULOSKELETAL: No joint swelling or deformity. EXTREMITIES: No cyanosis, clubbing, or pedal edema. -Right leg wound, and a dressing. Patient didn't allow me to examine its NEUROLOGICAL: Gross neurological examination did not reveal any focal deficits. SKIN: No rashes. - Labs CBC & Chem 7: 09/18/17 12:13 09/18/17 12:13 Labs: Abnormal Lab Results - Last 24 Hours (Table) 09/18/17 09/18/17 Range/Units 12:13 12:13 WBC 12.5 H (3.8-10.6) k/uL RBC 4.25 L (4.30-5.90) m/uL Hgb 12.9 L (13.0-17.5) gm/dL Sodium 136 L (137-145) mmol/L Carbon Dioxide 20 L (22-30) mmol/L Microbiology - Last 24 Hours (Table) 09/16/17 05:00 Gram Stain - Preliminary Leg - Right Wound Culture - Preliminary Pseudomonas aeruginosa Methicillin resist S. aureus Group D Enterococcus Assessment and Plan Assessment: Dementia with behavioral changes and acute psychosis Metabolic encephalopathy Right leg infection with MRSA and pseudomonas Possible new onset seizures Hyponatremia 122-127--133 Lactic acidosis Right foot wound infection Combative and violent behavior Hyperlipidemia History of prostate cancer Schizophrenia Plan: Patient will be continued on IV hydration and sodium level improved to 127,133, 136. Patient will be continued on restraints if he needs due to agitation and assess closely. Bedside sitter. Psychiatrically and neurology is following. Continue with antibiotics in the form of vancomycin, at Ceftazidime in the view of pseudomonas and wound culture. ID R following the patient. Patient was initially started on Haldol 5 mg every 6 when necessary and was reduced to 2 mg every 6 when necessary along with Depakote was added for mood stabilization. CT of the head without contrast: Pending. Has mild leukocytosis at 12+ K Further recommendations based on the clinical course. We will follow up closely DVT prophylaxis, on SCD, CT of the head is negative from a considered start him on heparin GI prophylaxis and Protonix Prognosis is guarded
--- NOTE | 2017-09-18 20:05 | CT ---
EXAMINATION TYPE: CT brain wo con DATE OF EXAM: 09/18/2017 COMPARISON: 09/15/2017 HISTORY: Altered mental status. CT DLP: 1171 mGycm Automated exposure control for dose reduction was used. FINDINGS: There is cerebral cortical atrophy. There is no mass effect nor midline shift. There is no sign of in tracranial hemorrhage. The calvarium is intact. IMPRESSION: CEREBRAL ATROPHY. NO ACUTE INTRACRANIAL ABNORMALITY. NO CHANGE.
[2017-09-18 22:50] LABS: Anion Gap 9 mmol/L; Blood Urea Nitrogen 9 mg/dL (9-20); Calcium 8.7 mg/dL (8.4-10.2); Carbon Dioxide 21 mmol/L (22-30); Chloride 106 mmol/L (98-107); Glucose 85 mg/dL (74-99); Potassium 3.7 mmol/L (3.5-5.1); Sodium 136 mmol/L (137-145)
--- NOTE | 2017-09-19 00:59 | P.PN ---
Subjective Progress Note Date: 09/18/17 This patient is a 72-year-old male being evaluated for recent episode of new onset seizure and worsening dementia with behavioral difficulties. He was seen by Dr. Norris yesterday from psychiatry and after a long discussion with Dr. Norris we elected to start this patient on Depakote for treatment of seizure as well as mood stabilizer given his rather extensive psychiatric history. His Depakote level is therapeutic at 64.5. The patient does have restraints for both hands today and does have a sitter at his bedside. As noted he is now therapeutic with his Depakote. Would continue close monitoring of his mood and behavior due to his history of advanced dementia with behavioral difficulties. We will await further recommendations from psychiatry. Patient was sent for repeat computed tomography scan of the brain today which reveals cerebral atrophy with no acute intracranial abnormality noted with no change from previous scan done 09/15/2017. Patient has been receiving Haldol for severe agitation. We will await further recommendations from psychiatry. Patient at this time is not appropriate for transfer to the inpatient psychiatric unit. His overall prognosis at this time remains very guarded. Objective - Vital Signs Vital signs: Vital Signs Temp 99.3 F 09/18/17 13:55 Pulse 104 H 09/18/17 13:55 Resp 20 09/18/17 13:55 BP 148/77 09/18/17 13:55 Pulse Ox 99 09/18/17 13:55 Intake & Output 09/18/17 09/18/17 09/19/17 06:59 18:59 06:59 Output Total 200 Balance -200 Output: Urine 200 Other: Voiding Method Diaper Diaper Incontinent Incontinent # Voids 2 1 # Bowel Movements 2 1 - Exam Physical examination: PHYSICAL EXAMINATION: Patient is resting comfortably in bed. VITAL SIGNS: Blood pressure is [148/77]. Heart rate is [104]. Respiration is [20 ]. Temperature is [99.3]. HEENT: Head is atraumatic, neck is supple, there were no carotid bruits. CHEST: Lungs are clear to auscultation and percussion. CARDIAC: S1, S2 normal rate and rhythm. There is no murmur. ABDOMEN: Soft and nontender. Bowel sounds are present. EXTREMITIES: There is no pedal edema. Peripheral pulses are present. Neurological examination: Patient's neurological examination is unchanged from yesterday. - Labs CBC & Chem 7: 09/18/17 12:13 09/18/17 22:25 Labs: Abnormal Lab Results - Last 24 Hours (Table) 09/18/17 09/18/17 Range/Units 12:13 12:13 WBC 12.5 H (3.8-10.6) k/uL RBC 4.25 L (4.30-5.90) m/uL Hgb 12.9 L (13.0-17.5) gm/dL Sodium 136 L (137-145) mmol/L Carbon Dioxide 20 L (22-30) mmol/L Microbiology - Last 24 Hours (Table) 09/16/17 05:00 Gram Stain - Preliminary Leg - Right Wound Culture - Preliminary Pseudomonas aeruginosa Methicillin resist S. aureus Group D Enterococcus Assessment and Plan (1) New onset seizure Current Visit: Yes Status: Acute Code(s): R56.9 - UNSPECIFIED CONVULSIONS SNOMED Code(s): 72230886 (2) Dementia Current Visit: No Status: Acute Code(s): F03.90 - UNSPECIFIED DEMENTIA WITHOUT BEHAVIORAL DISTURBANCE SNOMED Code(s): 65513702 (3) Aggressive behavior Current Visit: No Status: Acute Code(s): R46.89 - OTHER SYMPTOMS AND SIGNS INVOLVING APPEARANCE AND BEHAVIOR SNOMED Code(s): 02429491 (4) Foot ulceration Current Visit: No Status: Acute Code(s): L97.509 - NON-PRESSURE CHRONIC ULCER OTH PRT UNSP FOOT W UNSP SEVERITY SNOMED Code(s): 74370951 Plan: This patient is a 72-year-old male initially admitted to the inpatient psychiatric unit for treatment of dementia with behavioral disturbance. Patient was petitioned to the inpatient psychiatric unit by family members as he was showing aggressive behavior as well as delusions and paranoid ideation. He underwent a computed tomography scan of the brain yesterday the results of which are noted above. There is evidence of cerebral atrophy. Yesterday on the inpatient psychiatric unit he appeared to have had a short seizure-like event. This was witnessed by nursing staff. He was transferred to the medical floor for close monitoring and further evaluation. Patient underwent routine EEG today which was reviewed. Results are as noted above. EEG is moderately slow with no epileptiform discharges seen. We did discuss this patient's case in detail today with Dr. Norris who is seeing him from psychiatry. We are recommending to start the patient on Depakote as this may have mood stabilizing effect as well as anticonvulsant property. Dr. Norris is in full agreement and we will load the patient with IV Depacon and continue maintenance Depakote for him. Once again his EEG and CAT scan results were reviewed with Dr. Norris. We will continue close neurological follow-up with the patient. We will obtain a Depakote level and adjust his dose as needed. He is being considered for transfer back to the inpatient psychiatric unit when he is medically stable. We will continue with seizure precautions. The patient's Depakote level this morning came back therapeutic is 64.5. He should be maintained on his current dose of Depakote. He was advised that he cannot drive and state of [place] for a period of 6 months following any seizure activity. When medically stable he may be considered for transfer back to the inpatient psychiatric unit. Psychiatry did see him today and felt he is still not appropriate for transfer to the inpatient psychiatric unit. He is to continue on Depakote at this time and his most recent level was therapeutic. He does have a sitter at bedside and will need more close supervision once he is transferred back to the inpatient psychiatric unit. We will continue to monitor his progress closely during this admission. His overall prognosis at this time remains very guarded.
[2017-09-19] MEDS: VANCOMYCIN 1,500 MG in SODIUM CHLORIDE 0.9% 250 ML IVPB SCH ×2 (02:03→13:02)
[2017-09-19] MEDS: VALPROATE SODIUM 750 MG in SODIUM CHLORIDE 0.9% 50 ML IVPB SCH ×2 (05:15→16:43)
[2017-09-19] MEDS: HEPARIN SODIUM,PORCINE 5,000 UNIT/ML 1 ML VIAL SQ SCH ×2 (09:19→21:09)
[2017-09-19] MEDS: NICOTINE 21MG/24HR PATCH TRANSDERM SCH (09:19)
[2017-09-19] MEDS: PANTOPRAZOLE 40 MG TABLET PO SCH (09:19)
[2017-09-19] MEDS: ATORVASTATIN 40 MG TAB PO SCH (09:19)
[2017-09-19 09:31] LABS: Basophils % (A) 0 %; Eosinophils # (A) 0.5 k/uL (0-0.7); Eosinophils % (A) 5 %; HCT 37.4 % (39.0-53.0); HGB 12.6 gm/dL (13.0-17.5); Lymphocytes # (A) 1.4 k/uL (1.0-4.8); Lymphocytes % (A) 15 %; MCH 31.2 pg (25.0-35.0); MCHC 33.7 g/dL (31.0-37.0); MCV 92.7 fL (80.0-100.0); Mean Platelet Volume 7.7; Monocytes # (A) 0.8 k/uL (0-1.0); Monocytes % (A) 9 %; Neutrophils # (A) 6.7 k/uL (1.3-7.7); Neutrophils % (A) 69 %; Platelet Count 243 k/uL (150-450); RBC 4.04 m/uL (4.30-5.90); RDW 13.9 % (11.5-15.5); WBC 9.7 k/uL (3.8-10.6)
--- NOTE | 2017-09-19 09:38 | PN ---
PROGRESS NOTE DATE OF SERVICE: 09/18/2017 REASON FOR FOLLOWUP: Right leg venous stasis ulcers with question of cellulitis. INTERVAL HISTORY: The patient is a 72-year-old male who is well known to my service from the wound care center for which the patient had been treated for a right lower extremity venous stasis ulcer. He was recently admitted at the psych floor for which the patient had been taking care of himself. At that time the patient was seen on consultation as was advised an Aquacel Silver dressing. Subsequently, I got a call from the nurses on the floor with concern for worsening of the wound. However, the patient refused to be examined at that time. Now the patient has been admitted to the regular medical floor after apparently the patient did have a seizure-like activity and the patient noted to have more foul-smelling drainage from his right leg wound. The patient has been afebrile though and his white count was normal to slightly elevated 12.5 now. The patient did have wound culture obtained from the leg, which is growing multiple pathogens. He has been treated with vancomycin and ceftazidime added today. The patient has been sedated when seen on rounds this morning and was unable to provide any history. PHYSICAL EXAMINATION: On examination, blood pressure 148/77 with a pulse of 104, temperature 99.3. He is 99% on room air. General description is an elderly male lying in bed in no distress. RESPIRATORY SYSTEM: Unlabored breathing, clear to auscultation anteriorly. HEART: S1, S2. Regular rate and rhythm. ABDOMEN: Soft, no tenderness. Right leg wound is currently clean with no significant redness. No slough tissue swelling or any foul-smelling drainage. LABS: Hemoglobin 12.9, white count of 12.5 with a BUN of 9, creatinine 0.70. DIAGNOSTIC IMPRESSION AND PLAN: Patient with right leg venous stasis ulcer with concern for possible secondary infection. Overall, wound did not look with significant cellulitis today though the wound cultures have been growing multiple pathogen, question of possible superficial of the same currently with vancomycin and Fortaz. Will continue local wound care with Aquacel Silver dressing. Hopefully switch him to oral once his condition improves. Continue supportive care. MMODL / IJN: [id number] /
[2017-09-19 09:46] LABS: Anion Gap 10 mmol/L; Blood Urea Nitrogen 11 mg/dL (9-20); Calcium 8.6 mg/dL (8.4-10.2); Carbon Dioxide 22 mmol/L (22-30); Chloride 106 mmol/L (98-107); Glucose 81 mg/dL (74-99); Potassium 3.6 mmol/L (3.5-5.1); Sodium 138 mmol/L (137-145)
[2017-09-19] MEDS: SODIUM CHLORIDE 0.9% 1,000 ML IV SCH ×2 (10:48→21:09)
--- NOTE | 2017-09-19 11:33 | P.PN ---
Subjective 09/18/2017 is the first time I am taking care of the patient Patient is a 72-year-old male with a known history of dementia, hyperlipidemia, prostate cancer and schizophrenia was initially admitted to psychiatry unit on 09/08/2017 as the patient has not been eating or sleeping and is not keeping up his hygiene. Patient was having some delusions that his neighbors trying to kill his dog. Patient refuses to go to bed and his sitting on the chair most of the time and is not allowing the wounds on his right foot to heal. Patient was come back to and [facility] and was brought to the ER. Patient is being treated for acute psychosis in the psychiatric unit. Patient was seen by ID regarding his right foot wound but patient did not allow to examine at the time. On 09/15/2017 after noon patient became more agitated and was having seizure-like activity by he was in the psychiatric unit. Patient was found to have elevated lactic acid level and also his wound on the right leg is foul- smelling. Patient was eventually transferred to inpatient unit and neurology as well as ID was consulted. Patient was combative and not following commands and also having delusions last night patient was restrained. Patient was also started on Haldol along with Ativan. Patient is currently restrained and is having paranoid ideation. Patient underwent EEG today. Otherwise patient is on antibiotics in the form of vancomycin for right lower extremities infection and wound cultures were sent. CT head showed cerebral atrophy. Chronic small wasn't ischemia Sodium 122 lactic acid 3.2, magnesium 1.3 Patient otherwise denied any complaints of chest pain or shortness of breath. Patient is a poor historian. 09/17/2017 Patient is still agitated and restrained. Cannot provide any reliable history. Otherwise no fever no chills. No commerce of chest pain or shortness of breath. Patient is being continued on Haldol and Depakote. Psychiatry and neurology on board. Possible transfer to inpatient psychiatric unit. Sodium level improved to 133 now 09/18/2017 Patient still agitated, he might need restraints. He cannot provide reliable history. When asking him what her name he said I don't know. In asking where he is staying again he answers I don't know. He denies to be in pain. Denies chest pain or dyspnea. Denies abdominal pain or nausea vomiting. 09/19/2017 Patient is more calm today, he didn't need restraints. Sitter has been discontinued. This after patient was started on ceftazidime, he was also started on Depakote by neurologist. His leukocytosis is improved from 12.5 K to 9.7K Possible metabolic encephalopathy secondary to infection on the top of his dementia. Patient had uric urinary retention and bladder scan showing more than 700 mL of urine. Patient has Tomlinson catheter inserted as per protocol. Started on Flomax. No fever Vitas looks stable. His wound culture is growing 3 bacteria today pseudomonas plus MRSA plus enterococcus Complete review of systems could not be obtained from the patient Objective - Vital Signs Vital signs: Vital Signs Temp 98.2 F 09/19/17 07:00 Pulse 93 09/19/17 07:00 Resp 19 09/19/17 07:00 BP 168/91 09/19/17 07:00 Pulse Ox 98 09/19/17 07:00 Intake & Output 09/18/17 09/19/17 09/19/17 18:59 06:59 18:59 Output Total 200 2100 750 Balance -200 -2100 -750 Output: Urine 200 2100 750 Straight 2100 Uretheral (Tomlinson) 750 Other: Voiding Method Diaper Incontinent # Voids 1 1 # Bowel Movements 1 - Exam -GENERAL: The patient is alert and awake but confused. He is AAOX3, not in any acute distress. Agitated at times made in restraints HEENT: Pupils are round and equally reacting to light. EOMI. No scleral icterus. No conjunctival pallor. Normocephalic, atraumatic. No pharyngeal erythema. No thyromegaly. CARDIOVASCULAR: S1 and S2 present. No murmurs, rubs, or gallops. PULMONARY: Chest is clear to auscultation, no wheezing or crackles. ABDOMEN: Soft, nontender, nondistended, normoactive bowel sounds. No palpable organomegaly. MUSCULOSKELETAL: No joint swelling or deformity. EXTREMITIES: No cyanosis, clubbing, or pedal edema. -Right leg wound with minimal surrounding erythema and swelling NEUROLOGICAL: Gross neurological examination did not reveal any focal deficits. SKIN: No rashes. - Labs CBC & Chem 7: 09/19/17 09:10 09/19/17 09:10 Labs: Abnormal Lab Results - Last 24 Hours (Table) 07/16/18 07/16/18 07/16/18 Range/Units 12:13 12:13 22:25 WBC 12.5 H (3.8-10.6) k/uL RBC 4.25 L (4.30-5.90) m/uL Hgb 12.9 L (13.0-17.5) gm/dL Hct (39.0-53.0) % Sodium 136 L 136 L (137-145) mmol/L Carbon Dioxide 20 L 21 L (22-30) mmol/L 09/19/17 Range/Units 09:10 WBC (3.8-10.6) k/uL RBC 4.04 L (4.30-5.90) m/uL Hgb 12.6 L (13.0-17.5) gm/dL Hct 37.4 L (39.0-53.0) % Sodium (137-145) mmol/L Carbon Dioxide (22-30) mmol/L Microbiology - Last 24 Hours (Table) 09/16/17 05:00 Gram Stain - Preliminary Leg - Right Wound Culture - Preliminary Pseudomonas aeruginosa Methicillin resist S. aureus Group D Enterococcus Assessment and Plan Assessment: Dementia with behavioral changes and acute psychosis Metabolic encephalopathy Right leg infection with MRSA and pseudomonas Possible new onset seizures Hyponatremia 122-127--133 Lactic acidosis Right foot wound infection Combative and violent behavior Hyperlipidemia History of prostate cancer Schizophrenia Plan: Patient will be continued on IV hydration and sodium level improved to 127,133, 136. And 138. discontinue restraints and Bedside sitter. Psychiatrically and neurology teams are following. Continue with antibiotics in the form of vancomycin, at Ceftazidime in the view of pseudomonas and wound culture plus MRSA plus enterococcus. ID team are following the patient. Patient was initially started on Haldol 5 mg every 6 when necessary and was reduced to 2 mg every 6 when necessary along with Depakote was added for mood stabilization. CT of the head without contrast: Negative for acute event. Has mild leukocytosis at 12+ K his resolved. He is on IV fluids Further recommendations based on the clinical course. We will follow up closely DVT prophylaxis, on heparin GI prophylaxis and Protonix Prognosis is guarded
[2017-09-19 11:36] LABS: Appearance,Urine Clear (Clear); Bilirubin,Urine Negative (Negative); Blood,Urine Negative (Negative); Color,Urine Light Yellow; Glucose,Urine (UA) Negative (Negative); Ketones,Urine 2+ (Negative); Leukocyte Esterase,Urine Negative (Negative); Nitrite,Urine Negative (Negative); Protein,Urine Negative (Negative); Specific Gravity,Urine 1.009 (1.001-1.035); Urobilinogen,Urine <2.0 mg/dL (<2.0)
[2017-09-19] MEDS: MULTIVITAMINS, THERA 1 EACH TAB PO SCH (13:02)
--- NOTE | 2017-09-19 14:45 | P.PN ---
Progress Note - Text Progress Note Date: 09/19/17 Interval History: Patient is a 72-year-old male who was seen on the floor today. Patient was sleeping in his bed and arousable by his name, he responded to questions with the word no. Patient did not respond to any further questioning. Mental Status: Patient was lying in his hospital bed, he was not agitated and appeared to not be in any distress. Patient was sleeping and was easily aroused by calling his name which he responded to. When asked any other questions patient responded no to every question. Assessment: Patient was seen today to perform a evaluation for second certification, probate Court was contacted and his hearing scheduled for tomorrow September 20 will be delayed until next week. I spoke with nursing staff and the patient has been cooperative, he has not eaten refused even when assisted to eat. Patient has required catheterization for urinary retention. Patient is out of restraints and no longer has a sitter and has been ambulating from the bed to the bathroom. Patient continues to respond to his name but any further questions are responded with the word no. Patient continues to be on IV antibiotics as well as IV Depakote. Patient sodium level has returned to within normal limits. Plan: Patient is no longer with the sitter and has been cooperative with staff but he is not eating, has been up to the chair today for the first time and walking from his bed to the bathroom. His probate court hearing has been delayed until next week some time. Patient is currently on IV antibiotics as well as IV Depakote, spoke with nursing staff regarding his placement and a dementia unit is being considered at this time. We will continue to follow the patient while he is on the medical floor.
--- NOTE | 2017-09-19 17:30 | P.DS ---
Providers Date of admission: 09/15/17 22:47 Expected date of discharge: 09/15/17 Attending physician: Teja Michael Consults: 09/15/17 23:19 Consult Physician Routine Consulting Provider: Chandler Norris Consult Reason/Comments: 3 west transfer Do you want consulting provider notified?: Yes, Notify in am Consult Physician Routine Consulting Provider: Brenda Villalobos Consult Reason/Comments: wound to right leg/foot Do you want consulting provider notified?: Yes 09/15/17 23:20 Consult Physician Routine Consulting Provider: Charla Allen Consult Reason/Comments: seizure Do you want consulting provider notified?: Yes 09/18/17 09:28 Consult Physician Routine Consulting Provider: Evangelina Antonio Consult Reason/Comments: 3 west transfer Do you want consulting provider notified?: Yes Primary care physician: Stated None Hospital Course: Discharge Diagnosis: Neurocognitive disorder unknown etiology with behavioral disturbance Reason for Admission: Patient is a 72-year-old male who was residing at home with part-time caregivers. Patient was expressing delusions regarding his neighbors stating that they were trying to kill his dog. Patient was not sleeping or eating well and he had not been taking his medications. Patient was also not caring for his ADLs. Patient's [id number] reported that the patient started talking about his neighbors trying to kill his dog and the patient would refuse to go to bed and would sit up in a chair. Patient apparently developed a wound on his right foot he'll that was not healing due to this. Patient had made threats of violence towards his neighbors as well as threats towards the caregivers are her coming to the house. Patient had been prescribed Seroquel 1 or 50 mg a day and Klonopin 1.5 mg a day but is unclear if the patient had been taking his medications. On admission the patient was wandering in and out of his room and into the boswell and he would stand and stare. He made brief comments that were not connected to his current situation. Patient was unable to answer questions with any meaningful response. He was focused on asking for shoes. Patient was not able to answer any formal cognitive questions. He did not know where he was or any of his current circumstances. Hospital Course: Patient was admitted on an involuntary basis, he was placed on one-to-one for safety, routine laboratory studies and a medical consultation was obtained. Patient was placed on Zyprexa 5 mg 3 times a day and his Seroquel and Klonopin were discontinued. Patient showed some improvement but continued to only sleep about 2 hours a night patient needed assistance with eating as he needed assistance in being told to continue to eat which utensils to use. Patient's appetite was poor and he did not eat much but would drink and short. Patient was able to verbalize when he needed to use the bathroom. Patient refused to bathe or shower. Patient was transitioned back to Seroquel and the dose was increased to 75 mg twice a day and 150 mg at bedtime as his blood pressure had started to drop with the Zyprexa. Patient was also begun on Celexa 10 mg daily to decrease his agitation. Patient also was refusing to allow staff to look at his dressing, he was also given Tylenol alternating with ibuprofen for pain. Patient did begin to show some improvement had started to sleep more at night, was smiling and started to eat well when he had a seizure on Monday evening and was transferred to the medical floor. Discharge Plan: Patient was transferred to a medical floor after having a seizure on the psychiatric unit. Patient Condition at Discharge: Serious Plan - Discharge Summary Discharge Rx Participant: No New Discharge Prescriptions: No Action clonazePAM [KlonoPIN] 1.5 mg PO DAILY QUEtiapine [SEROquel] 150 mg PO DAILY Metoprolol Succinate (ER) [Toprol Xl] 50 mg PO DAILY Atorvastatin [Lipitor] 40 mg PO DAILY Omeprazole 20 mg PO DAILY Discharge Medication List Atorvastatin [Lipitor] 40 mg PO DAILY 09/08/17 [History] Metoprolol Succinate (ER) [Toprol Xl] 50 mg PO DAILY 09/08/17 [History] Omeprazole 20 mg PO DAILY 09/08/17 [History] QUEtiapine [SEROquel] 150 mg PO DAILY 09/08/17 [History] clonazePAM [KlonoPIN] 1.5 mg PO DAILY 09/08/17 [History]
[2017-09-19] MEDS: TAMSULOSIN 0.4 MG CAP.ER.24H PO SCH (18:30)
--- NOTE | 2017-09-19 20:04 | P.PN ---
Subjective Progress Note Date: 09/19/17 This patient is a 72-year-old male being evaluated for recent episode of new onset seizure and worsening dementia with behavioral difficulties. He was seen by Dr. Norris yesterday from psychiatry and after a long discussion with Dr. Norris we elected to start this patient on Depakote for treatment of seizure as well as mood stabilizer given his rather extensive psychiatric history. His Depakote level is therapeutic at 64.5. The patient does have restraints for both hands today and does have a sitter at his bedside. As noted he is now therapeutic with his Depakote. Would continue close monitoring of his mood and behavior due to his history of advanced dementia with behavioral difficulties. We will await further recommendations from psychiatry. Patient was sent for repeat computed tomography scan of the brain today which reveals cerebral atrophy with no acute intracranial abnormality noted with no change from previous scan done 09/15/2017. Patient has been receiving Haldol for severe agitation. We will await further recommendations from psychiatry. Patient at this time is not appropriate for transfer to the inpatient psychiatric unit. Patient was seen by psychiatry today for evaluation for second certification period nursing staff indicate the patient has been cooperative but has not been eating very well at all. He is required catheterization for urinary retention. He is out of his restraints at this time but does have a sitter at bedside today. He was sitting up in chair today and did follow simple commands. He has had no further seizure events. He is to continue on his current dose of Depakote. We will check a Depakote level tomorrow morning to make sure he is in the therapeutic range. His overall prognosis at this time remains very guarded. Objective - Vital Signs Vital signs: Vital Signs Temp 96.9 F L 09/19/17 15:00 Pulse 95 09/19/17 15:00 Resp 14 09/19/17 15:00 BP 163/81 09/19/17 15:00 Pulse Ox 99 09/19/17 15:00 Intake & Output 09/19/17 09/19/17 09/20/17 06:59 18:59 06:59 Output Total 2100 1600 Balance -2100 -1600 Output: Urine 2100 1600 Straight 2100 Uretheral (Tomlinson) 750 Other: Voiding Method Indwelling Catheter # Voids 1 - Exam Physical examination: PHYSICAL EXAMINATION: Patient is resting comfortably in bed. VITAL SIGNS: Blood pressure is [163/81]. Heart rate is [95]. Respiration is [14] . Temperature is [96.9]. HEENT: Head is atraumatic, neck is supple, there were no carotid bruits. CHEST: Lungs are clear to auscultation and percussion. CARDIAC: S1, S2 normal rate and rhythm. There is no murmur. ABDOMEN: Soft and nontender. Bowel sounds are present. EXTREMITIES: There is no pedal edema. Peripheral pulses are present. Neurological examination: Patient's neurological examination is unchanged from yesterday. Patient is sitting up in chair today and is out of all restraints. He is following simple commands. His memory and intellectual functions remain impaired. - Labs CBC & Chem 7: 09/19/17 09:10 09/19/17 09:10 Labs: Abnormal Lab Results - Last 24 Hours (Table) 09/18/17 09/19/17 09/19/17 Range/Units 22:25 09:10 11:00 RBC 4.04 L (4.30-5.90) m/uL Hgb 12.6 L (13.0-17.5) gm/dL Hct 37.4 L (39.0-53.0) % Sodium 136 L (137-145) mmol/L Carbon Dioxide 21 L (22-30) mmol/L Urine Ketones 2+ H (Negative) Microbiology - Last 24 Hours (Table) 09/19/17 11:00 Urine Culture - Preliminary Urine,Catheterized 09/16/17 05:00 Gram Stain - Final Leg - Right Wound Culture - Final Pseudomonas aeruginosa Methicillin resist S. aureus Enterococcus faecalis 09/16/17 05:00 Anaerobic Culture - Preliminary Leg - Right Anaerobic Gram Positive Cocci Assessment and Plan (1) New onset seizure Current Visit: Yes Status: Acute Code(s): R56.9 - UNSPECIFIED CONVULSIONS SNOMED Code(s): 55402494 (2) Dementia Current Visit: No Status: Acute Code(s): F03.90 - UNSPECIFIED DEMENTIA WITHOUT BEHAVIORAL DISTURBANCE SNOMED Code(s): 83377606 (3) Aggressive behavior Current Visit: No Status: Acute Code(s): R46.89 - OTHER SYMPTOMS AND SIGNS INVOLVING APPEARANCE AND BEHAVIOR SNOMED Code(s): 27703366 (4) Foot ulceration Current Visit: No Status: Acute Code(s): L97.509 - NON-PRESSURE CHRONIC ULCER OTH PRT UNSP FOOT W UNSP SEVERITY SNOMED Code(s): 13646403 Plan: This patient is a 72-year-old male initially admitted to the inpatient psychiatric unit for treatment of dementia with behavioral disturbance. Patient was petitioned to the inpatient psychiatric unit by family members as he was showing aggressive behavior as well as delusions and paranoid ideation. He underwent a computed tomography scan of the brain yesterday the results of which are noted above. There is evidence of cerebral atrophy. Yesterday on the inpatient psychiatric unit he appeared to have had a short seizure-like event. This was witnessed by nursing staff. He was transferred to the medical floor for close monitoring and further evaluation. Patient underwent routine EEG today which was reviewed. Results are as noted above. EEG is moderately slow with no epileptiform discharges seen. We did discuss this patient's case in detail today with Dr. Norris who is seeing him from psychiatry. We are recommending to start the patient on Depakote as this may have mood stabilizing effect as well as anticonvulsant property. Dr. Norris is in full agreement and we will load the patient with IV Depacon and continue maintenance Depakote for him. Once again his EEG and CAT scan results were reviewed with Dr. Norris. We will continue close neurological follow-up with the patient. We will obtain a Depakote level and adjust his dose as needed. He is being considered for transfer back to the inpatient psychiatric unit when he is medically stable. We will continue with seizure precautions. The patient's Depakote level this morning came back therapeutic is 64.5. He should be maintained on his current dose of Depakote. He was advised that he cannot drive and state [facility] for a period of 6 months following any seizure activity. When medically stable he may be considered for transfer back to the inpatient psychiatric unit. Psychiatry did see him today and felt he is still not appropriate for transfer to the inpatient psychiatric unit. He is to continue on Depakote at this time and his most recent level was therapeutic. Patient was able to come out of his restraints today. He does seem to be more calm and able to communicate with the nursing staff. He does have a sitter at bedside and will need more close supervision once he is transferred back to the inpatient psychiatric unit. We have recommended a Depakote level to be drawn tomorrow morning to make sure he is in a therapeutic range. We will await further recommendations from psychiatry in terms of discharge planning. We will continue to monitor his progress closely during this admission. His overall prognosis at this time remains very guarded.
[2017-09-20] MEDS: VALPROATE SODIUM 750 MG in SODIUM CHLORIDE 0.9% 50 ML IVPB SCH ×2 (08:54→16:59)
[2017-09-20] MEDS: VANCOMYCIN 1,500 MG in SODIUM CHLORIDE 0.9% 250 ML IVPB SCH ×2 (08:54→11:56)
[2017-09-20] MEDS: NICOTINE 21MG/24HR PATCH TRANSDERM SCH (09:12)
[2017-09-20] MEDS: PANTOPRAZOLE 40 MG TABLET PO SCH (09:12)
[2017-09-20] MEDS: ATORVASTATIN 40 MG TAB PO SCH (09:12)
[2017-09-20] MEDS: HEPARIN SODIUM,PORCINE 5,000 UNIT/ML 1 ML VIAL SQ SCH ×2 (09:12→21:18)
[2017-09-20 09:21] LABS: Basophils % (A) 0 %; Eosinophils # (A) 0.6 k/uL (0-0.7); Eosinophils % (A) 7 %; HCT 37.9 % (39.0-53.0); HGB 12.6 gm/dL (13.0-17.5); Lymphocytes # (A) 1.5 k/uL (1.0-4.8); Lymphocytes % (A) 16 %; MCH 30.6 pg (25.0-35.0); MCHC 33.2 g/dL (31.0-37.0); MCV 92.2 fL (80.0-100.0); Mean Platelet Volume 6.5; Monocytes # (A) 0.7 k/uL (0-1.0); Monocytes % (A) 8 %; Neutrophils # (A) 5.8 k/uL (1.3-7.7); Neutrophils % (A) 65 %; Platelet Count 283 k/uL (150-450); RBC 4.12 m/uL (4.30-5.90); RDW 13.9 % (11.5-15.5); WBC 8.9 k/uL (3.8-10.6)
[2017-09-20 09:55] LABS: Anion Gap 9 mmol/L; Blood Urea Nitrogen 10 mg/dL (9-20); Calcium 8.5 mg/dL (8.4-10.2); Carbon Dioxide 22 mmol/L (22-30); Chloride 104 mmol/L (98-107); Glucose 82 mg/dL (74-99); Potassium 3.5 mmol/L (3.5-5.1); Sodium 135 mmol/L (137-145)
[2017-09-20 10:01] LABS: Valproic Acid (Depakene) 86.9 ug/mL
--- NOTE | 2017-09-20 10:48 | PN ---
PROGRESS NOTE DATE OF SERVICE: 09/19/2017 REASON FOR FOLLOWUP: Right lower extremity venous stasis ulcer and secondary cellulitis. INTERVAL HISTORY: The patient is afebrile. Has been breathing comfortably. Seemed to be less agitated. No nausea or vomiting has been noticed or any diarrhea. PHYSICAL EXAMINATION: On examination, blood pressure 163/81 with a pulse of 95, temperature 96.9. He is 98% on room air. General description is an elderly male up in the room in no distress. RESPIRATORY SYSTEM: Unlabored breathing, clear to auscultation anteriorly. HEART: S1, S2. Regular rate and rhythm. ABDOMEN: Soft, no tenderness. Right leg wound is currently dressed up, no obvious drainage on the dressings. LABS: Hemoglobin is 12.6, white count 9.7, BUN of 11, creatinine 0.77. DIAGNOSTIC IMPRESSION AND PLAN: Patient with right lower extremity venous stasis ulcer with secondary cellulitis. Culture with multiple pathogen but these have been superficial . Currently on Fortaz and the vancomycin. Local wound care with Aquacel Silver dressing. Continue supportive care. MMODL / IJN: [id number] /
[2017-09-20] MEDS: MULTIVITAMINS, THERA 1 EACH TAB PO SCH (11:55)
[2017-09-20] MEDS: SODIUM CHLORIDE 0.9% 1,000 ML IV SCH ×2 (11:56→16:25)
--- NOTE | 2017-09-20 13:15 | P.PN ---
Subjective 09/18/2017 is the first time I am taking care of the patient Patient is a 72-year-old male with a known history of dementia, hyperlipidemia, prostate cancer and schizophrenia was initially admitted to psychiatry unit on 09/08/2017 as the patient has not been eating or sleeping and is not keeping up his hygiene. Patient was having some delusions that his neighbors trying to kill his dog. Patient refuses to go to bed and his sitting on the chair most of the time and is not allowing the wounds on his right foot to heal. Patient was come back to and [facility] and was brought to the ER. Patient is being treated for acute psychosis in the psychiatric unit. Patient was seen by ID regarding his right foot wound but patient did not allow to examine at the time. On 09/15/2017 after noon patient became more agitated and was having seizure-like activity by he was in the psychiatric unit. Patient was found to have elevated lactic acid level and also his wound on the right leg is foul- smelling. Patient was eventually transferred to inpatient unit and neurology as well as ID was consulted. Patient was combative and not following commands and also having delusions last night patient was restrained. Patient was also started on Haldol along with Ativan. Patient is currently restrained and is having paranoid ideation. Patient underwent EEG today. Otherwise patient is on antibiotics in the form of vancomycin for right lower extremities infection and wound cultures were sent. CT head showed cerebral atrophy. Chronic small wasn't ischemia Sodium 122 lactic acid 3.2, magnesium 1.3 Patient otherwise denied any complaints of chest pain or shortness of breath. Patient is a poor historian. 09/17/2017 Patient is still agitated and restrained. Cannot provide any reliable history. Otherwise no fever no chills. No commerce of chest pain or shortness of breath. Patient is being continued on Haldol and Depakote. Psychiatry and neurology on board. Possible transfer to inpatient psychiatric unit. Sodium level improved to 133 now 09/18/2017 Patient still agitated, he might need restraints. He cannot provide reliable history. When asking him what her name he said I don't know. In asking where he is staying again he answers I don't know. He denies to be in pain. Denies chest pain or dyspnea. Denies abdominal pain or nausea vomiting. 09/19/2017 Patient is more calm today, he didn't need restraints. Sitter has been discontinued. This after patient was started on ceftazidime, he was also started on Depakote by neurologist. His leukocytosis is improved from 12.5 K to 9.7K Possible metabolic encephalopathy secondary to infection on the top of his dementia. Patient had uric urinary retention and bladder scan showing more than 700 mL of urine. Patient has Tomlinson catheter inserted as per protocol. Started on Flomax. No fever Vitas looks stable. His wound culture is growing 3 bacteria today pseudomonas plus MRSA plus enterococcus On 09/20/2017 Patient remains to be calm. His of restraints and bedside sitter. Today he could tell me his name is Radha gao, which she couldn't do that over the last 2 days. However he still disoriented to time place and person. His been evaluated by psychiatrist and discharge him from their service. And the postponed his court hearing 2 next week. Patient had a fever yesterday of 100.0, but no leukocytosis. Wound culture: pseudomonas plus MRSA plus enterococcus , and there are and aerobic pending positive culture. Patient continue with appendectomy Vanco and Zosyn. We will do x-ray of the right leg Patient has urinary retention Cystoscopy on IV Depakote, and Depakote level is followed up. Neurology following the case Complete review of systems could not be obtained from the patient Objective - Vital Signs Vital signs: Vital Signs Temp 98.9 F 09/20/17 05:57 Pulse 74 09/20/17 05:57 Resp 18 09/20/17 05:57 BP 149/76 09/20/17 05:57 Pulse Ox 99 09/20/17 05:57 Intake & Output 09/19/17 09/20/17 09/20/17 18:59 06:59 18:59 Output Total 1600 0 Balance -1600 -2049 Output: Urine 1600 0 Uretheral (Tomlinson) 750 Other: Voiding Method Indwelling Catheter Indwelling Catheter Indwelling Catheter # Bowel Movements 0 - Exam -GENERAL: The patient is alert and awake but confused. He is AAOX3, not in any acute distress. Agitated at times made in restraints HEENT: Pupils are round and equally reacting to light. EOMI. No scleral icterus. No conjunctival pallor. Normocephalic, atraumatic. No pharyngeal erythema. No thyromegaly. CARDIOVASCULAR: S1 and S2 present. No murmurs, rubs, or gallops. PULMONARY: Chest is clear to auscultation, no wheezing or crackles. ABDOMEN: Soft, nontender, nondistended, normoactive bowel sounds. No palpable organomegaly. MUSCULOSKELETAL: No joint swelling or deformity. EXTREMITIES: No cyanosis, clubbing, or pedal edema. -Right leg wound with minimal surrounding erythema and swelling NEUROLOGICAL: Gross neurological examination did not reveal any focal deficits. SKIN: No rashes. - Labs CBC & Chem 7: 09/20/17 08:50 09/20/17 08:50 Labs: Abnormal Lab Results - Last 24 Hours (Table) 09/20/17 09/20/17 Range/Units 08:50 08:50 RBC 4.12 L (4.30-5.90) m/uL Hgb 12.6 L (13.0-17.5) gm/dL Hct 37.9 L (39.0-53.0) % Sodium 135 L (137-145) mmol/L Microbiology - Last 24 Hours (Table) 09/16/17 05:00 Anaerobic Culture - Final Leg - Right Anaerobic Gram Positive Cocci Anaerobic Gm Negative Bacilli 09/19/17 11:00 Urine Culture - Final Urine,Catheterized 09/16/17 05:00 Gram Stain - Final Leg - Right Wound Culture - Final Pseudomonas aeruginosa Methicillin resist S. aureus Enterococcus faecalis Assessment and Plan Assessment: Dementia with behavioral changes and acute psychosis Metabolic encephalopathy Right leg infection with MRSA and pseudomonas Possible new onset seizures Hyponatremia 122-127--133 Lactic acidosis Right foot wound infection Combative and violent behavior Hyperlipidemia History of prostate cancer Schizophrenia Urinary retention, Tomlinson is placed Plan: Patient will be continued on IV hydration and sodium level improved to 127,133, 135. . discontinue restraints and Bedside sitter. Psychiatrically and neurology teams are following. Psychiatry discharge the patient from their service, And postponed the court date for next week. Continue with antibiotics in the form of vancomycin, at Ceftazidime in the view of pseudomonas and wound culture plus MRSA plus enterococcus. ID team are following the patient. Patient was initially started on Haldol 5 mg every 6 when necessary and was reduced to 2 mg every 6 when necessary along with Depakote was added for mood stabilization. CT of the head without contrast: Negative for acute event. Has mild leukocytosis at 12+ K his resolved. He had urinary retention, started on Flomax and straight cath when necessary Further recommendations based on the clinical course. We will follow up closely DVT prophylaxis, on heparin GI prophylaxis and Protonix Prognosis is guarded
--- NOTE | 2017-09-20 15:02 | XR ---
EXAMINATION TYPE: XR tibia fibula RT DATE OF EXAM: 09/20/2017 CLINICAL HISTORY: pain TECHNIQUE: AP and lateral images of the right tibia and fibula are obtained. COMPARISON: None. FINDINGS: There is no acute fracture/dislocation evident. The joint spaces appear within normal patricia its. The overlying soft tissue appears unremarkable. No evidence for osteomyelitis, radiopaque forei gn body or bony destructive process. IMPRESSION: There is no acute fracture or dislocation seen. ICD 10 NO FRACTURE, INITIAL EVALUATION
[2017-09-20] MEDS ORDERED: QUEtiapine 25 MG TAB PO PRN (15:41)
--- NOTE | 2017-09-20 15:59 | P.PN ---
Progress Note - Text Progress Note Date: 09/20/17 Interval History: Patient is a 72-year-old male who was seen today, patient is sitting in his hospital bed watching television. Patient responded to his name , became irritable when I asked him questions regarding if he had been eating or not. Patient is hard of hearing and needs to have questions spoken loudly and close to him. Patient then stated that he wasn't to blame. Patient's responses to questions were either yes or no or he stated he wasn't blame. Patient one point told me he did not want to speak with me further. Mental Status: [Appearance/Attitude: Patient is dressed in a hospital gown, he is lying in a hospital bed makes intermittent eye contact Behavior: Patient is not exhibiting any psychomotor agitation Speech/Language: Patient speaks in a normal volume and rhythm Thought Process: Patient's responses are yes or no or brief sentences Thought Content: Patient is not responding to internal stimuli, he can become accusatory and was suspicious that I was blaming him for something. Patient stated that he no longer wanted to speak with me. Suicidal/Homicidal Ideation: Patient is not voicing any suicidal or homicidal statements Sensorium/Cognition: Patient is alert and oriented to person only Mood/Affect: Patient's mood is irritable and suspicious and his affect is blunted Insight/Judgment: Recent insight and judgment are impaired Assessment: Patient is now more alert and sitting up in his bed however he remains oriented only to person. Patient is not eating, did eat some of his breakfast this morning but has not been eating. Patient now has a Tomlinson catheter, he was suspicious of some of the medications that the nurse gave him this morning. Patient has been taking his oral medication. Patient was more irritable today when I saw him asking me to leave stating he didn't want to talk to me, thought I was blaming him for something. Patient is hard of hearing and even when the questions are repeated to the patient close to his ear and loudly he does not comprehend most questions. Plan: [Patient continues on IV Depakote for the seizure that he had. Patient has not received any Haldol since Monday evening and his irritability and suspiciousness have increased. Patient continues to not eat, has been taking his medications although is becoming more suspicious and was quite irritable and asking me to leave while I saw him today. I will restart Seroquel 150 mg by mouth at bedtime to target his suspiciousness and irritability, as well as Seroquel 25 mg every 8 hours when necessary for agitation. A second certification was completed today and the patient's hearing will be on 2017. I will continue to follow the patient and adjust his medications to control his irritability and suspiciousness. Hopefully the Depakote will assist in controlling some of the agitation.
[2017-09-20] MEDS: LORazepam 2 MG/ML INJ IM PRN (16:55)
[2017-09-20] MEDS: TAMSULOSIN 0.4 MG CAP.ER.24H PO SCH (17:39)
[2017-09-20] MEDS ORDERED: QUEtiapine 100 MG TAB PO SCH (21:00)
--- NOTE | 2017-09-20 23:17 | P.PN ---
Subjective Progress Note Date: 09/20/17 This patient is a 72-year-old male being evaluated for recent episode of new onset seizure and worsening dementia with behavioral difficulties. He was seen by Dr. Norris yesterday from psychiatry and after a long discussion with Dr. Norris we elected to start this patient on Depakote for treatment of seizure as well as mood stabilizer given his rather extensive psychiatric history. His Depakote level is therapeutic today with a level of 86.9. The patient does have restraints for both hands today and does have a sitter at his bedside. As noted he is now therapeutic with his Depakote. Would continue close monitoring of his mood and behavior due to his history of advanced dementia with behavioral difficulties. We will await further recommendations from psychiatry. Patient was sent for repeat computed tomography scan of the brain today which reveals cerebral atrophy with no acute intracranial abnormality noted with no change from previous scan done 09/15/2017. Patient has been receiving Haldol for severe agitation. We will await further recommendations from psychiatry. Patient at this time is not appropriate for transfer to the inpatient psychiatric unit. Patient was seen by psychiatry today for evaluation for second certification period nursing staff indicate the patient has been cooperative but has not been eating very well at all. He is required catheterization for urinary retention. He is out of his restraints at this time but does have a sitter at bedside today. He was sitting up in chair today and did follow simple commands. He has had no further seizure events. He is to continue on his current dose of Depakote. His overall prognosis at this time remains very guarded. Objective - Vital Signs Vital signs: Vital Signs Temp 98.9 F 09/20/17 05:57 Pulse 74 09/20/17 05:57 Resp 18 09/20/17 05:57 BP 149/76 09/20/17 05:57 Pulse Ox 99 09/20/17 05:57 Intake & Output 09/19/17 09/20/17 09/20/17 18:59 06:59 18:59 Output Total 1600 2049 Balance -1599 -2049 Output: Urine 1599 2049 Uretheral (Tomlinson) 750 Other: Voiding Method Indwelling Catheter Indwelling Catheter Indwelling Catheter # Bowel Movements 0 - Exam Physical examination: PHYSICAL EXAMINATION: Patient is resting comfortably in bed. VITAL SIGNS: Blood pressure is [149/76]. Heart rate is [74]. Respiration is [18] . Temperature is [98.9]. HEENT: Head is atraumatic, neck is supple, there were no carotid bruits. CHEST: Lungs are clear to auscultation and percussion. CARDIAC: S1, S2 normal rate and rhythm. There is no murmur. ABDOMEN: Soft and nontender. Bowel sounds are present. EXTREMITIES: There is no pedal edema. Peripheral pulses are present. Neurological examination: Patient's neurological examination is unchanged from yesterday. Patient is sitting up in chair today and is out of all restraints. He is following simple commands. His memory and intellectual functions remain impaired. - Labs CBC & Chem 7: 09/20/17 08:50 09/20/17 08:50 Labs: Abnormal Lab Results - Last 24 Hours (Table) 09/20/17 09/20/17 Range/Units 08:50 08:50 RBC 4.12 L (4.30-5.90) m/uL Hgb 12.6 L (13.0-17.5) gm/dL Hct 37.9 L (39.0-53.0) % Sodium 135 L (137-145) mmol/L Microbiology - Last 24 Hours (Table) 09/16/17 05:00 Anaerobic Culture - Final Leg - Right Anaerobic Gram Positive Cocci Anaerobic Gm Negative Bacilli 09/19/17 11:00 Urine Culture - Final Urine,Catheterized 09/16/17 05:00 Gram Stain - Final Leg - Right Wound Culture - Final Pseudomonas aeruginosa Methicillin resist S. aureus Enterococcus faecalis Assessment and Plan (1) New onset seizure Current Visit: Yes Status: Acute Code(s): R56.9 - UNSPECIFIED CONVULSIONS SNOMED Code(s): 06738916 (2) Dementia Current Visit: No Status: Acute Code(s): F03.90 - UNSPECIFIED DEMENTIA WITHOUT BEHAVIORAL DISTURBANCE SNOMED Code(s): 90586390 (3) Aggressive behavior Current Visit: No Status: Acute Code(s): R46.89 - OTHER SYMPTOMS AND SIGNS INVOLVING APPEARANCE AND BEHAVIOR SNOMED Code(s): 33248856 (4) Foot ulceration Current Visit: No Status: Acute Code(s): L97.509 - NON-PRESSURE CHRONIC ULCER OTH PRT UNSP FOOT W UNSP SEVERITY SNOMED Code(s): 15612953 Plan: Patient is more awake and alert today. He was sitting up in his bed earlier today and was able to eat some of his breakfast. His Depakote level did come back therapeutic at 86.9. The Depakote does seem to have some mood stabilizing effect for him at this time. There is no evidence of any further seizure activity since his admission to the hospital medical unit. Patient was seen by psychiatry and restarted on Seroquel. We will continue close neurological follow-up for the patient during this admission.
--- NOTE | 2017-09-20 23:24 | PN ---
PROGRESS NOTE DATE OF SERVICE: 09/20/2017. REASON FOR FOLLOWUP: Right lower extremity venous stasis ulcer with concern for cellulitis. INTERVAL HISTORY: The patient is afebrile, has been breathing comfortably. He seems to be less agitated. No nausea, vomiting or any diarrhea reported. Did not mention any pain to the right leg area. EXAMINATION: Blood pressure is 155/72 with a pulse of 87, temperature of 98.1. He is 97% on room air. General description is an elderly male up in the room in no distress. RESPIRATORY SYSTEM: Unlabored breathing. Clear to auscultation anteriorly. HEART: S1, S2. Regular rate and rhythm. ABDOMEN: Soft. No tenderness. Right leg wound is currently dressed up. No obvious drainage on the dressing. LABS: Hemoglobin is 12.6, white count of 8.9 with a BUN of 10, creatinine 0.70. DIAGNOSTIC IMPRESSION AND PLAN: Patient with right leg wound secondary cellulitis, culture positive for multiple bacteria. Currently covered with Fortaz and vancomycin. Local wound care with an Aquacel silver dressing. Continue with supportive care. MMODL / IJN: [id number] /
[2017-09-21] MEDS: VANCOMYCIN 1,500 MG in SODIUM CHLORIDE 0.9% 250 ML IVPB SCH ×2 (00:52→13:08)
[2017-09-21] MEDS: SODIUM CHLORIDE 0.9% 1,000 ML IV SCH ×2 (05:22→15:17)
[2017-09-21] MEDS: VALPROATE SODIUM 750 MG in SODIUM CHLORIDE 0.9% 50 ML IVPB SCH ×2 (05:23→16:19)
[2017-09-21 08:24] LABS: Basophils % (A) 0 %; Eosinophils # (A) 0.6 k/uL (0-0.7); Eosinophils % (A) 8 %; HCT 33.6 % (39.0-53.0); HGB 11.2 gm/dL (13.0-17.5); Lymphocytes # (A) 0.9 k/uL (1.0-4.8); Lymphocytes % (A) 12 %; MCH 30.5 pg (25.0-35.0); MCHC 33.4 g/dL (31.0-37.0); MCV 91.2 fL (80.0-100.0); Mean Platelet Volume 6.7; Monocytes # (A) 0.8 k/uL (0-1.0); Monocytes % (A) 10 %; Neutrophils % (A) 66 %; Platelet Count 234 k/uL (150-450); RBC 3.69 m/uL (4.30-5.90); WBC 7.5 k/uL (3.8-10.6)
[2017-09-21 08:52] LABS: Anion Gap 9 mmol/L; Blood Urea Nitrogen 8 mg/dL (9-20); Calcium 7.9 mg/dL (8.4-10.2); Carbon Dioxide 23 mmol/L (22-30); Chloride 106 mmol/L (98-107); Glucose 79 mg/dL (74-99); Sodium 138 mmol/L (137-145)
[2017-09-21 09:04] LABS: Potassium 2.8 mmol/L (3.5-5.1)
[2017-09-21] MEDS ORDERED: Potassium Replacement Protocol 1 EACH MISC MISCELLANE PRN ×2 (09:08→18:30)
[2017-09-21] MEDS: NICOTINE 21MG/24HR PATCH TRANSDERM SCH (09:20)
[2017-09-21] MEDS: PANTOPRAZOLE 40 MG TABLET PO SCH (09:20)
[2017-09-21] MEDS: ATORVASTATIN 40 MG TAB PO SCH (09:20)
[2017-09-21] MEDS: HEPARIN SODIUM,PORCINE 5,000 UNIT/ML 1 ML VIAL SQ SCH ×2 (09:20→20:55)
[2017-09-21] MEDS: POTASSIUM CHLORIDE ER 20 MEQ TAB.ER PO SCH ×3 (09:33→12:12)
[2017-09-21] MEDS ORDERED: Magnesium Replacement Protocol 1 EACH MISC MISCELLANE PRN (09:54)
[2017-09-21] MEDS: MAGNESIUM SULFATE-D5W PMX 1 GM in DEXTROSE/WATER 1 100ML.BAG IVPB SCH ×3 (10:53→13:09)
--- NOTE | 2017-09-21 12:41 | P.PN ---
Subjective 09/18/2017 is the first time I am taking care of the patient Patient is a 72-year-old male with a known history of dementia, hyperlipidemia, prostate cancer and schizophrenia was initially admitted to psychiatry unit on 09/08/2017 as the patient has not been eating or sleeping and is not keeping up his hygiene. Patient was having some delusions that his neighbors trying to kill his dog. Patient refuses to go to bed and his sitting on the chair most of the time and is not allowing the wounds on his right foot to heal. Patient was come back to and [facility] and was brought to the ER. Patient is being treated for acute psychosis in the psychiatric unit. Patient was seen by ID regarding his right foot wound but patient did not allow to examine at the time. On 09/15/2017 after noon patient became more agitated and was having seizure-like activity by he was in the psychiatric unit. Patient was found to have elevated lactic acid level and also his wound on the right leg is foul- smelling. Patient was eventually transferred to inpatient unit and neurology as well as ID was consulted. Patient was combative and not following commands and also having delusions last night patient was restrained. Patient was also started on Haldol along with Ativan. Patient is currently restrained and is having paranoid ideation. Patient underwent EEG today. Otherwise patient is on antibiotics in the form of vancomycin for right lower extremities infection and wound cultures were sent. CT head showed cerebral atrophy. Chronic small wasn't ischemia Sodium 122 lactic acid 3.2, magnesium 1.3 Patient otherwise denied any complaints of chest pain or shortness of breath. Patient is a poor historian. 09/17/2017 Patient is still agitated and restrained. Cannot provide any reliable history. Otherwise no fever no chills. No commerce of chest pain or shortness of breath. Patient is being continued on Haldol and Depakote. Psychiatry and neurology on board. Possible transfer to inpatient psychiatric unit. Sodium level improved to 133 now 09/18/2017 Patient still agitated, he might need restraints. He cannot provide reliable history. When asking him what her name he said I don't know. In asking where he is staying again he answers I don't know. He denies to be in pain. Denies chest pain or dyspnea. Denies abdominal pain or nausea vomiting. 09/19/2017 Patient is more calm today, he didn't need restraints. Sitter has been discontinued. This after patient was started on ceftazidime, he was also started on Depakote by neurologist. His leukocytosis is improved from 12.5 K to 9.7K Possible metabolic encephalopathy secondary to infection on the top of his dementia. Patient had uric urinary retention and bladder scan showing more than 700 mL of urine. Patient has Tomlinson catheter inserted as per protocol. Started on Flomax. No fever Vitas looks stable. His wound culture is growing 3 bacteria today pseudomonas plus MRSA plus enterococcus On 09/20/2017 Patient remains to be calm. His of restraints and bedside sitter. Today he could tell me his name is Radha gao, which she couldn't do that over the last 2 days. However he still disoriented to time place and person. His been evaluated by psychiatrist and discharge him from their service. And the postponed his court hearing 2 next week. Patient had a fever yesterday of 100.0, but no leukocytosis. Wound culture: pseudomonas plus MRSA plus enterococcus , and there are and aerobic pending positive culture. Patient continue with appendectomy Vanco and Zosyn. We will do x-ray of the right leg Patient has urinary retention. pt is on IV Depakote, and Depakote level is followed up. Neurology following the case 09/21/2017 Patient is was agitated and suspicious last night and psychiatric evaluation for follow-up was done, patient received 150 mg of Seroquel and 25 mg 3 times a day when necessary for agitation. However he noticed that his more sleepy this morning sodium, we are going to decrease seroquel dose to 50 mg daily at bedtime and ask for psych follow-up. Patient continue on antibiotics for right with infection. X-ray of the right tibia and fibula was unremarkable. His court hearing sit on 09/27/2017 as per psych note Complete review of systems could not be obtained from the patient Objective - Vital Signs Vital signs: Vital Signs Temp 98.0 F 09/20/17 23:00 Pulse 86 09/21/17 07:30 Resp 16 09/21/17 07:30 BP 134/70 09/21/17 07:30 Pulse Ox 97 09/21/17 07:30 Intake & Output 09/20/17 09/21/17 09/21/17 18:59 06:59 18:59 Intake Total 150 Output Total 700 1900 Balance -700 -1900 150 Intake: Intake, IV Titration 150 Amount Magnesium Sulfate-D5w Pmx 100 1 gm In Dextrose/Water 1 100ml.bag @ 100 mls/hr IVPB Q1H [facility] Rx#: [id number] cefTAZidime 1 gm In 50 Sodium Chloride 0.9% 50 ml @ 100 mls/hr IVPB Q8HR [facility] Rx#:[id number] Output: Urine 700 1900 Other: Voiding Method Indwelling Catheter Indwelling Catheter Indwelling Catheter - Exam -GENERAL: The patient is alert and awake but confused. He is AAOX3, not in any acute distress. Agitated at times made in restraints HEENT: Pupils are round and equally reacting to light. EOMI. No scleral icterus. No conjunctival pallor. Normocephalic, atraumatic. No pharyngeal erythema. No thyromegaly. CARDIOVASCULAR: S1 and S2 present. No murmurs, rubs, or gallops. PULMONARY: Chest is clear to auscultation, no wheezing or crackles. ABDOMEN: Soft, nontender, nondistended, normoactive bowel sounds. No palpable organomegaly. MUSCULOSKELETAL: No joint swelling or deformity. EXTREMITIES: No cyanosis, clubbing, or pedal edema. -Right leg wound with minimal surrounding erythema and swelling NEUROLOGICAL: Gross neurological examination did not reveal any focal deficits. SKIN: No rashes. - Labs CBC & Chem 7: 09/21/17 08:05 09/21/17 08:05 Labs: Abnormal Lab Results - Last 24 Hours (Table) 09/21/17 09/21/17 09/21/17 Range/Units 08:05 08:05 08:05 RBC 3.69 L (4.30-5.90) m/uL Hgb 11.2 L (13.0-17.5) gm/dL Hct 33.6 L (39.0-53.0) % Lymphocytes # 0.9 L (1.0-4.8) k/uL Potassium 2.8 L* (3.5-5.1) mmol/L BUN 8 L (9-20) mg/dL Calcium 7.9 L (8.4-10.2) mg/dL Magnesium 1.4 L (1.6-2.3) mg/dL Microbiology - Last 24 Hours (Table) 09/16/17 05:00 Anaerobic Culture - Final Leg - Right Anaerobic Gram Positive Cocci Anaerobic Gm Negative Bacilli 09/19/17 11:00 Urine Culture - Final Urine,Catheterized Assessment and Plan Assessment: Dementia with behavioral changes and acute psychosis Metabolic encephalopathy Right leg infection with MRSA and pseudomonas, enterococcus Possible new onset seizures Hyponatremia , resolving Lactic acidosis Right foot wound infection Combative and violent behavior Hyperlipidemia History of prostate cancer Schizophrenia Urinary retention, Tomlinson is placed Plan: Patient will be continued on IV hydration and sodium level improved to 127,133, 135. . discontinue restraints and Bedside sitter.head without contrast: Negative for acute event. Psychiatrically and neurology teams are following. Psychiatry discharge the patient from their service, And postponed the court date for next week. Continue with antibiotics in the form of vancomycin, at Ceftazidime in the view of pseudomonas and wound culture plus MRSA plus enterococcus. ID team are following the patient. Patient was agitated which is improving , he didn't need more haldol , pt to continue withe depakote as per neuro and psych , pt was suspicious to other staff members, which is treated by seroquel by psych team, whose input is appreciated, pt was more sleepy and his seroquel dose was lowered 150 to 100 ,g HS . CT of the hismild leukocytosis resolved. He had urinary retention, started on Flomax and straight cath when necessary. Replace electrolytes. right Tibia-fibula x-ray was reviewed and unremarkable Further recommendations based on the clinical course. pt has court hearing sit on 09/27/2017 as per psych note DVT prophylaxis, on heparin GI prophylaxis and Protonix Prognosis is guarded
[2017-09-21 14:31] VITALS: BMI 26.6
[2017-09-21 15:29] LABS: Magnesium 2.3 mg/dL (1.6-2.3); Potassium 3.1 mmol/L (3.5-5.1)
[2017-09-21] MEDS: TAMSULOSIN 0.4 MG CAP.ER.24H PO SCH (18:29)
--- NOTE | 2017-09-21 19:03 | P.PN ---
Subjective Progress Note Date: 09/21/17 This patient is a 72-year-old male being evaluated for recent episode of new onset seizure and worsening dementia with behavioral difficulties. He was seen by Dr. Norris yesterday from psychiatry and after a long discussion with Dr. Norris we elected to start this patient on Depakote for treatment of seizure as well as mood stabilizer given his rather extensive psychiatric history. His Depakote level is therapeutic today with a level of 86.9. The patient does have restraints for both hands today and does have a sitter at his bedside. As noted he is now therapeutic with his Depakote. Would continue close monitoring of his mood and behavior due to his history of advanced dementia with behavioral difficulties. We will await further recommendations from psychiatry. Patient was sent for repeat computed tomography scan of the brain today which reveals cerebral atrophy with no acute intracranial abnormality noted with no change from previous scan done 09/15/2017. Patient has been receiving Haldol for severe agitation. We will await further recommendations from psychiatry. Patient at this time is not appropriate for transfer to the inpatient psychiatric unit. Patient was seen by psychiatry today for evaluation for second certification period nursing staff indicate the patient has been cooperative but has not been eating very well at all. He is required catheterization for urinary retention. He is out of his restraints at this time but does have a sitter at bedside today. He was sitting up in chair today and did follow simple commands. He has had no further seizure events. He is to continue on his current dose of Depakote. As noted his Depakote level is therapeutic. He is clearly showing some beneficial effect of the Depakote as a mood stabilizer for him. We are awaiting further recommendations from psychiatry. His overall prognosis at this time remains very guarded. Objective - Vital Signs Vital signs: Vital Signs Temp 98.0 F 09/20/17 23:00 Pulse 86 09/21/17 07:30 Resp 16 09/21/17 07:30 BP 134/70 09/21/17 07:30 Pulse Ox 97 09/21/17 07:30 Intake & Output 09/20/17 09/21/17 09/21/17 18:59 06:59 18:59 Intake Total 500 Output Total 700 1900 Balance -700 -1900 500 Weight 86.5 kg Intake: Intake, IV Titration 500 Amount Magnesium Sulfate-D5w Pmx 200 1 gm In Dextrose/Water 1 100ml.bag @ 100 mls/hr IVPB Q1H [facility] Rx#: [id number] Vancomycin 1,500 mg In 250 Sodium Chloride 0.9% 250 ml @ 125 mls/hr IVPB Q12H [facility] Rx#:[id number] cefTAZidime 1 gm In 50 Sodium Chloride 0.9% 50 ml @ 100 mls/hr IVPB Q8HR [facility] Rx#:[id number] Output: Urine 700 1900 Other: Voiding Method Indwelling Catheter Indwelling Catheter Indwelling Catheter - Exam Physical examination: PHYSICAL EXAMINATION: Patient is resting comfortably in bed. VITAL SIGNS: Blood pressure is [149/76]. Heart rate is [74]. Respiration is [18] . Temperature is [98.9]. HEENT: Head is atraumatic, neck is supple, there were no carotid bruits. CHEST: Lungs are clear to auscultation and percussion. CARDIAC: S1, S2 normal rate and rhythm. There is no murmur. ABDOMEN: Soft and nontender. Bowel sounds are present. EXTREMITIES: There is no pedal edema. Peripheral pulses are present. Neurological examination: Patient's neurological examination is unchanged from yesterday. Patient is sitting up in chair today and is out of all restraints. He is following simple commands. His memory and intellectual functions remain impaired. He does not appear to be agitated or combative at this time. - Labs CBC & Chem 7: 09/21/17 08:05 09/21/17 14:49 Labs: Abnormal Lab Results - Last 24 Hours (Table) 09/21/17 09/21/17 09/21/17 Range/Units 08:05 08:05 08:05 RBC 3.69 L (4.30-5.90) m/uL Hgb 11.2 L (13.0-17.5) gm/dL Hct 33.6 L (39.0-53.0) % Lymphocytes # 0.9 L (1.0-4.8) k/uL Potassium 2.8 L* (3.5-5.1) mmol/L BUN 8 L (9-20) mg/dL Calcium 7.9 L (8.4-10.2) mg/dL Magnesium 1.4 L (1.6-2.3) mg/dL Microbiology - Last 24 Hours (Table) 09/16/17 05:00 Anaerobic Culture - Final Leg - Right Anaerobic Gram Positive Cocci Anaerobic Gm Negative Bacilli Assessment and Plan (1) New onset seizure Current Visit: Yes Status: Acute Code(s): R56.9 - UNSPECIFIED CONVULSIONS SNOMED Code(s): 90429067 (2) Dementia Current Visit: No Status: Acute Code(s): F03.90 - UNSPECIFIED DEMENTIA WITHOUT BEHAVIORAL DISTURBANCE SNOMED Code(s): 38540545 (3) Aggressive behavior Current Visit: No Status: Acute Code(s): R46.89 - OTHER SYMPTOMS AND SIGNS INVOLVING APPEARANCE AND BEHAVIOR SNOMED Code(s): 59803312 (4) Foot ulceration Current Visit: No Status: Acute Code(s): L97.509 - NON-PRESSURE CHRONIC ULCER OTH PRT UNSP FOOT W UNSP SEVERITY SNOMED Code(s): 05353922 Plan: Patient is more awake and alert today. He was sitting up in his bed earlier today and was able to eat some of his breakfast. His Depakote level did come back therapeutic at 86.9. The Depakote does seem to have some mood stabilizing effect for him at this time. There is no evidence of any further seizure activity since his admission to the hospital medical unit. Patient was seen by psychiatry and restarted on Seroquel. The patient was somewhat agitated last night and did require extra dose of Seroquel. This has been effective for controlling some of his agitation. We will await further recommendations from psychiatry in terms of long-term management for this patient. We will continue close neurological follow up for the patient during this admission. His overall prognosis at this time remains guarded.
[2017-09-21] MEDS: POTASSIUM CHLORIDE 10 MEQ in WATER FOR INJECTION 1 100ML.BAG IVPB SCH ×4 (19:52→22:58)
[2017-09-21] MEDS ORDERED: QUEtiapine 100 MG TAB PO SCH (21:00)
--- NOTE | 2017-09-21 23:13 | PN ---
PROGRESS NOTE DATE OF SERVICE: 09/21/2017 REASON FOR FOLLOWUP: Right leg venostasis ulcer with significant cellulitis. INTERVAL HISTORY: The patient is afebrile. He has been breathing comfortably. Hemodynamically stable. Less agitated. No nausea, vomiting or any diarrhea reported by the nursing staff. PHYSICAL EXAMINATION: Blood pressure 153/75 with pulse of 80, temperature 98.7. He is 97% on room air. General description is an elderly male lying in bed in no distress. RESPIRATORY SYSTEM: Unlabored breathing. Clear to auscultation anteriorly. HEART: S1, S2. Regular rate and rhythm. ABDOMEN: Soft. No tenderness. Right leg wound is currently dressed up with no obvious drainage on the dressing. LABS: Hemoglobin , white count 7.5. BUN of 8, creatinine 0.77. DIAGNOSTIC IMPRESSION AND PLAN: Patient with right leg venostasis ulcer with secondary cellulitis. Culture has been positive with multiple pathogens, including anaerobic gram-negative. Continue with the vancomycin. Fortaz was switched over to Zosyn. Hopefully finish therapy with oral antibiotic. Local wound care. He will continue with Aquacel Silver dressing. Continue with supportive care. MMODL / IJN: [id number] /
[2017-09-22] MEDS: VANCOMYCIN 1,500 MG in SODIUM CHLORIDE 0.9% 250 ML IVPB SCH ×2 (04:44→12:44)
[2017-09-22] MEDS: POTASSIUM CHLORIDE 10 MEQ in WATER FOR INJECTION 1 100ML.BAG IVPB SCH ×2 (06:27→07:31)
[2017-09-22] MEDS: SODIUM CHLORIDE 0.9% 1,000 ML IV SCH (07:35)
[2017-09-22 07:39] VITALS: BP 168/77; PULSE 79; RESP 16; TEMP 99.1
[2017-09-22 08:17] LABS: Basophils % (A) 0 %; Eosinophils # (A) 0.6 k/uL (0-0.7); Eosinophils % (A) 8 %; HCT 33.2 % (39.0-53.0); HGB 10.9 gm/dL (13.0-17.5); Lymphocytes # (A) 1.1 k/uL (1.0-4.8); Lymphocytes % (A) 14 %; MCH 30.3 pg (25.0-35.0); MCHC 32.9 g/dL (31.0-37.0); MCV 92.1 fL (80.0-100.0); Mean Platelet Volume 6.2; Monocytes # (A) 0.9 k/uL (0-1.0); Monocytes % (A) 12 %; Neutrophils # (A) 4.9 k/uL (1.3-7.7); Neutrophils % (A) 62 %; Platelet Count 241 k/uL (150-450); WBC 7.9 k/uL (3.8-10.6)
[2017-09-22] MEDS: NICOTINE 21MG/24HR PATCH TRANSDERM SCH (08:22)
[2017-09-22] MEDS: HEPARIN SODIUM,PORCINE 5,000 UNIT/ML 1 ML VIAL SQ SCH (08:23)
[2017-09-22] MEDS: PANTOPRAZOLE 40 MG TABLET PO SCH (08:24)
[2017-09-22] MEDS: ATORVASTATIN 40 MG TAB PO SCH (08:24)
[2017-09-22 08:32] LABS: Carbon Dioxide 23 mmol/L (22-30); Chloride 108 mmol/L (98-107); Glucose 90 mg/dL (74-99); Potassium 3.5 mmol/L (3.5-5.1); Sodium 138 mmol/L (137-145)
[2017-09-22 08:33] LABS: Anion Gap 7 mmol/L; Blood Urea Nitrogen 10 mg/dL (9-20); Magnesium 1.8 mg/dL (1.6-2.3)
[2017-09-22] MEDS ORDERED: DIVALPROEX 250 MG TABLET.DR PO SCH (09:00)
[2017-09-22] MEDS ORDERED: POTASSIUM CHLORIDE ER 20 MEQ TAB.ER PO STA ×2 (09:33→13:26)
[2017-09-22] MEDS ORDERED: MAGNESIUM SULFATE-D5W PMX 1 GM in DEXTROSE/WATER 1 100ML.BAG IVPB ONE (13:27)
--- NOTE | 2017-09-22 13:44 | P.PN ---
Subjective Progress Note Date: 09/22/17 This patient is a 72-year-old male being evaluated for recent episode of new onset seizure and worsening dementia with behavioral difficulties. He was seen by Dr. Norris yesterday from psychiatry and after a long discussion with Dr. Norris we elected to start this patient on Depakote for treatment of seizure as well as mood stabilizer given his rather extensive psychiatric history. His Depakote level is therapeutic today with a level of 86.9. The patient does have restraints for both hands today and does have a sitter at his bedside. As noted he is now therapeutic with his Depakote. Would continue close monitoring of his mood and behavior due to his history of advanced dementia with behavioral difficulties. We will await further recommendations from psychiatry. Patient was sent for repeat computed tomography scan of the brain today which reveals cerebral atrophy with no acute intracranial abnormality noted with no change from previous scan done 09/15/2017. Patient has been receiving Haldol for severe agitation. We will await further recommendations from psychiatry. Patient at this time is not appropriate for transfer to the inpatient psychiatric unit. Patient was seen by psychiatry today for evaluation for second certification period nursing staff indicate the patient has been cooperative but has not been eating very well at all. He is required catheterization for urinary retention. He is out of his restraints at this time but does have a sitter at bedside today. He was sitting up in chair today and did follow simple commands. He has had no further seizure events. He is to continue on his current dose of Depakote. As noted his Depakote level is therapeutic. He is clearly showing some beneficial effect of the Depakote as a mood stabilizer for him. We are awaiting further recommendations from psychiatry. His overall prognosis at this time remains very guarded. Objective - Vital Signs Vital signs: Vital Signs Temp 99.1 F 09/22/17 07:00 Pulse 79 09/22/17 07:00 Resp 16 09/22/17 07:00 BP 168/77 09/22/17 07:00 Pulse Ox 96 09/22/17 07:00 Intake & Output 09/21/17 09/22/17 09/22/17 18:59 06:59 18:59 Intake Total 670 350 Output Total 1400 1000 Balance -730 -650 Weight 86.5 kg 86.5 kg Intake: Intake, IV Titration 550 150 Amount Magnesium Sulfate-D5w Pmx 200 1 gm In Dextrose/Water 1 100ml.bag @ 100 mls/hr IVPB Q1H [facility] Rx#: [id number] Potassium Chloride 10 meq 100 In Water For Injection 1 100ml.bag @ 100 mls/hr IVPB Q1H [facility] Rx#: [id number] Vancomycin 1,500 mg In 250 Sodium Chloride 0.9% 250 ml @ 125 mls/hr IVPB Q12H [facility] Rx#:[id number] cefTAZidime 1 gm In 100 50 Sodium Chloride 0.9% 50 ml @ 100 mls/hr IVPB Q8HR [facility] Rx#:[id number] Oral 120 200 Output: Urine 1400 1000 Other: Voiding Method Indwelling Catheter Indwelling Catheter Indwelling Catheter # Voids 1 1 1 - Exam Physical examination: PHYSICAL EXAMINATION: Patient is resting comfortably in bed. VITAL SIGNS: Blood pressure is [168/77]. Heart rate is [79]. Respiration is [16] . Temperature is [99.1]. HEENT: Head is atraumatic, neck is supple, there were no carotid bruits. CHEST: Lungs are clear to auscultation and percussion. CARDIAC: S1, S2 normal rate and rhythm. There is no murmur. ABDOMEN: Soft and nontender. Bowel sounds are present. EXTREMITIES: There is no pedal edema. Peripheral pulses are present. Neurological examination: Patient's neurological examination is unchanged from yesterday. Patient is sitting up in chair today and is out of all restraints. He is following simple commands. His memory and intellectual functions remain impaired. He does not appear to be agitated or combative at this time. - Labs CBC & Chem 7: 09/22/17 07:36 09/22/17 07:36 Labs: Abnormal Lab Results - Last 24 Hours (Table) 09/21/17 09/22/17 09/22/17 Range/Units 14:49 07:36 07:36 RBC 3.60 L (4.30-5.90) m/uL Hgb 10.9 L (13.0-17.5) gm/dL Hct 33.2 L (39.0-53.0) % Potassium 3.1 L (3.5-5.1) mmol/L Chloride 108 H (98-107) mmol/L Calcium 8.0 L (8.4-10.2) mg/dL Assessment and Plan (1) New onset seizure Current Visit: Yes Status: Acute Code(s): R56.9 - UNSPECIFIED CONVULSIONS SNOMED Code(s): 86724377 (2) Dementia Current Visit: No Status: Acute Code(s): F03.90 - UNSPECIFIED DEMENTIA WITHOUT BEHAVIORAL DISTURBANCE SNOMED Code(s): 60354921 (3) Aggressive behavior Current Visit: No Status: Acute Code(s): R46.89 - OTHER SYMPTOMS AND SIGNS INVOLVING APPEARANCE AND BEHAVIOR SNOMED Code(s): 31967987 (4) Foot ulceration Current Visit: No Status: Acute Code(s): L97.509 - NON-PRESSURE CHRONIC ULCER OTH PRT UNSP FOOT W UNSP SEVERITY SNOMED Code(s): 68907237 Plan: Patient is more awake and alert today. He was sitting up in his bed earlier today and was able to eat some of his breakfast. His Depakote level did come back therapeutic at 86.9. The Depakote does seem to have some mood stabilizing effect for him at this time. There is no evidence of any further seizure activity since his admission to the hospital medical unit. Patient was seen by psychiatry and restarted on Seroquel. The patient was somewhat agitated last night and did require extra dose of Seroquel. This has been effective for controlling some of his agitation. We will await further recommendations from psychiatry in terms of long-term management for this patient. There is been no significant change in his neurological status since yesterday. He is being considered for discharge to [facility] later today. He should continue on current dose of Depakote and have a repeat Depakote level done in a week. He is to follow-up with psychiatry as recommended. We will continue close neurological follow up for the patient during this admission. His overall prognosis at this time remains guarded.
--- NOTE | 2017-09-22 13:48 | P.DS ---
Providers Date of admission: 09/15/17 22:47 Attending physician: Teja Michael Consults: 09/15/17 23:19 Consult Physician Routine Consulting Provider: Chandler Norris Consult Reason/Comments: 3 west transfer Do you want consulting provider notified?: Yes, Notify in am Consult Physician Routine Consulting Provider: Brenda Villalobos Consult Reason/Comments: wound to right leg/foot Do you want consulting provider notified?: Yes 09/15/17 23:20 Consult Physician Routine Consulting Provider: Charla Allen Consult Reason/Comments: seizure Do you want consulting provider notified?: Yes 09/18/17 09:28 Consult Physician Routine Consulting Provider: Evangelina Antonio Consult Reason/Comments: 3 west transfer Do you want consulting provider notified?: Yes Primary care physician: Stated None Hospital Course: Patient is a 72-year-old male with a known history of dementia, hyperlipidemia, prostate cancer and schizophrenia was initially admitted to psychiatry unit on 09/08/2017 as the patient has not been eating or sleeping and is not keeping up his hygiene. Patient was having some delusions that his neighbors trying to kill his dog. Patient refuses to go to bed and his sitting on the chair most of the time and is not allowing the wounds on his right foot to heal. Patient was come back to [facility] and was brought to the ER. Patient is being treated for acute psychosis in the psychiatric unit. Patient was seen by ID regarding his right foot wound but patient did not allow to examine at the time. On 09/15/2017 after noon patient became more agitated and was having seizure-like activity by he was in the psychiatric unit. Patient was found to have elevated lactic acid level and also his wound on the right leg is foul- smelling. Patient was eventually transferred to inpatient unit and neurology as well as ID was consulted. Patient was combative and not following commands and also having delusions that needed restrains (both were discontinued earlier ) and he is been follow up by psych team while in medical floor. Neurology saw the patient for new onset seizure was as above problems and he was started on Depakote. No other evidence of further seizures after that. Brain CT was negative for acute event, with brain atrophy, EEG: No epileptiform abnormalities. Patient also was been followed by psychiatrist and besides his original psychiatric medication, Seroquel was added. As a result patient was more awake and alert on the day of discharge Culture from his right leg wound grew Pseudomonas, MRSA, and enterococcus. He was treated with vancomycin and ceftazidime, and later Zosyn. Patient has been afebrile for 48 hours. on discharge his WBC is within normal limits at 7.9K. Patient local exam of the wound shows interval improvement with clean wounds and no surrounding erythema or swelling or tenderness he had no foul discharge. Patient is been evaluated by ID and cleared him for discharge on oral antibiotics and to follow up in the wound clinic. Patient and family at bedside were provided with this information and they state pt is at baseline , he still confused to time and place but he knew the family member and names. pt was been evaluated by neurology and would be discharge on Depakote, and psych attending cleared him for discharge and he does not need court hearing as per psych and staff. Patient after being cleared by all consultants. His found stable for discharge however he needs follow-up as an outpatient. With recommendation to follow up with the ID clinic in 1 week, And other clinics as recommended with psych and PCP [see discharge instructions GENERAL: The patient is alert and oriented x1 to person only, not in any acute distress. Well developed, well nourished. Patient is, not agitated HEENT: Pupils are round and equally reacting to light. EOMI. No scleral icterus. No conjunctival pallor. Normocephalic, atraumatic. No pharyngeal erythema. No thyromegaly. CARDIOVASCULAR: S1 and S2 present. No murmurs, rubs, or gallops. PULMONARY: Chest is clear to auscultation, no wheezing or crackles. ABDOMEN: Soft, nontender, nondistended, normoactive bowel sounds. No palpable organomegaly. MUSCULOSKELETAL: No joint swelling or deformity. EXTREMITIES: No cyanosis, clubbing, or pedal edema. -Right leg wound is clean, with no surrounding erythema, swelling, or tenderness. Dressing is in place NEUROLOGICAL: Gross neurological examination did not reveal any focal deficits. SKIN: No rashes. Time more than 35 minutes] Patient Condition at Discharge: Good Plan - Discharge Summary Discharge Rx Participant: No New Discharge Prescriptions: New Doxycycline Hyclate 100 mg PO BID #14 tab Nicotine 21Mg/24Hr Patch [Habitrol] 1 patch TRANSDERM DAILY #0 patch QUEtiapine [SEROquel] 25 mg PO TID PRN tab PRN Reason: Agitation QUEtiapine [SEROquel] 100 mg PO HS tab Tamsulosin [Flomax] 0.4 mg PO PC-SUPPER cap.er.24h Discontinued QUEtiapine [SEROquel] 150 mg PO DAILY No Action clonazePAM [KlonoPIN] 1.5 mg PO DAILY Metoprolol Succinate (ER) [Toprol XL] 50 mg PO DAILY Atorvastatin [Lipitor] 40 mg PO DAILY Omeprazole 20 mg PO DAILY Discharge Medication List Atorvastatin [Lipitor] 40 mg PO DAILY 09/08/17 [History] Metoprolol Succinate (ER) [Toprol XL] 50 mg PO DAILY 09/08/17 [History] Omeprazole 20 mg PO DAILY 09/08/17 [History] clonazePAM [KlonoPIN] 1.5 mg PO DAILY 09/08/17 [History] Doxycycline Hyclate 100 mg PO BID #14 tab 09/22/17 [Rx] Nicotine 21Mg/24Hr Patch [Habitrol] 1 patch TRANSDERM DAILY #0 patch 09/22/17 [ Rx] QUEtiapine [SEROquel] 25 mg PO TID PRN tab 09/22/17 [Rx] QUEtiapine [SEROquel] 100 mg PO HS tab 09/22/17 [Rx] Tamsulosin [Flomax] 0.4 mg PO PC-SUPPER cap.er.24h 09/22/17 [Rx] Activity/Diet/Wound Care/Special Instructions: Aquacel silver dressing to the right leg wound , change q48hr follow up at [facility] wound care in [address]alobos, Cardiac diet Activity as tolerated Dressing changed today measurements 2cmX1.25cm
--- NOTE | 2017-09-22 15:13 | P.PN ---
Progress Note - Text Progress Note Date: 09/22/17 Interval History: Patient is a 72-year-old male who was seen today, his sister and other family members were present in the room. Patient was sitting up in bed and was eating his lunch. Patient was pleasant there is no evidence of agitation. He responded to my greeting. Mental Status: Patient was sitting up in bed, he responded to his name. Patient was interacting with family members were present in the room at the time his sister, her and her daughter. Patient was eating lunch. Patient did not respond to any further questions by me. Assessment: Patient was not overly sedated today, he has not required any further as needed psychotropic medication and has not exhibited any agitated or threatening behavior. Patient was noted to be sitting up in bed and was eating a sandwich when I walked in. I was asked to see the patient today as he is being transferred to [facility] in [place]. Plan: Patient will be transferred to [facility] in [place] and I would suggest continuing the Seroquel at 100 mg at bedtime. Patient's involuntary commitment hearing is September 27, the court will be notified that the patient has been transferred to [facility] in [place].
[2017-09-22] MEDS ORDERED: PIPERACILLIN-TAZOBACTAM 3.375 GM in DEXTROSE/WATER 1 50ML.BAG IVPB SCH (16:00)
--- NOTE | 2017-09-22 16:56 | PN ---
PROGRESS NOTE DATE OF SERVICE: 09/22/2017 REASON FOR FOLLOWUP: Right leg wound with secondary cellulitis. INTERVAL HISTORY: The patient was seen on rounds this afternoon. The patient has been more awake and alert. He is more appropriate. No agitation has been noticed. No nausea, vomiting, diarrhea. Denies any pain to the right leg area. PHYSICAL EXAMINATION: Blood pressure is 168/77 with a pulse of 79, temperature 99.1. He is 96% on room air. General description is an elderly male lying in bed in no distress. RESPIRATORY SYSTEM: Unlabored breathing. Clear to auscultation anteriorly. HEART: S1, S2. Regular rate and rhythm. ABDOMEN: Soft. No tenderness. Right leg swelling has resolved. Wound base with no slough tissue. LABS: White count normal at 7.9 with a BUN of 10, creatinine 0.84. DIAGNOSTIC IMPRESSION AND PLAN: Patient with right leg wound with possible secondary cellulitis. The wound culture did show multiple pathogens; however, these have been superficial cultures from the wound and more likely representing a possible colonization or contamination. Will give a short course of oral doxycycline. Local wound care with Aquacel Silver. Plan of care was discussed with the admitting physician and the family present at the bedside. Their questions were answered. MMODL / IJN: [id number] /
[2017-09-23] MEDS ORDERED: VANCOMYCIN TROUGH DUE 1 EACH MISC MISCELLANE ONE
== END 2017-09-22 15:41 | DRG 100 ==
LOC: 6SEL 22:47 → 4MS4W 09-16 20:36 → 5MS5E 09-16 23:04 → 4MS4W 09-16 23:04
PROVIDERS: ADMIT Internal Medicine; ATTEND Internal Medicine
DX: R56.9 Unspecified convulsions (principal); G93.41 Metabolic encephalopathy; E87.1 Hypo-osmolality and hyponatremia; E87.2 Acidosis; F03.91 Unspecified dementia, unspecified severity, with behavioral disturbance; L03.115 Cellulitis of right lower limb; L97.309 Non-pressure chronic ulcer of unspecified ankle with unspecified severity; E78.5 Hyperlipidemia, unspecified; F17.200 Nicotine dependence, unspecified, uncomplicated; F20.9 Schizophrenia, unspecified; H91.90 Unspecified hearing loss, unspecified ear; I83.019 Varicose veins of right lower extremity with ulcer of unspecified site; I70.233 Atherosclerosis of native arteries of right leg with ulceration of ankle; Z78.1 Physical restraint status; Z79.899 Other long term (current) drug therapy; Z85.46 Personal history of malignant neoplasm of prostate; B95.62 Methicillin resistant Staphylococcus aureus infection as the cause of diseases classified elsewhere; B96.5 Pseudomonas (aeruginosa) (mallei) (pseudomallei) as the cause of diseases classified elsewhere; R33.9 Retention of urine, unspecified
CPT/HCPCS: 70450; 80048; 80164; 80202; 81003; 83605; 83735; 84132; 85025; 85027; 87070; 87075; 87077; 87086; 87186; 87205; 95816

== ENCOUNTER 2017-10-16 14:18 | Inpatient (IN) | payer MEDICARE, OTHER ==
[2017-10-16] MEDS ORDERED: SODIUM CHLORIDE 0.9% 1,000 ML IV STA (14:59)
[2017-10-16 15:10] LABS: Appearance,Urine Clear (Clear); Bilirubin,Urine Negative (Negative); Blood,Urine Negative (Negative); Color,Urine Light Yellow; Glucose,Urine (UA) Negative (Negative); Ketones,Urine Negative (Negative); Leukocyte Esterase,Urine Negative (Negative); Nitrite,Urine Negative (Negative); PH, Urine 6.5 (5.0-8.0); Protein,Urine Negative (Negative); Specific Gravity,Urine 1.004 (1.001-1.035); Urobilinogen,Urine <2.0 mg/dL (<2.0)
[2017-10-16 15:19] LABS: Amphetamine Screen,Urine Not Detected (NotDetected); Barbiturate Screen,Urine Not Detected (NotDetected); Benzodiazepines Screen,Urine Not Detected (NotDetected); Cocaine Screen,Urine Not Detected (NotDetected); Methadone Screen, Urine Not Detected (NotDetected); Opiate Screen,Urine Not Detected (NotDetected); Oxycodone Screen, Urine Not Detected (NotDetected); Phencyclidine Screen,Urine Not Detected (NotDetected); Tricyclic Antidepressant,Urine Detected (NotDetected); Urn Cannabinoid Scrn Not Detected (NotDetected)
[2017-10-16 15:33] LABS: Acetaminophen <10.0 ug/mL; Alcohol <10 mg/dL; Anion Gap 6 mmol/L; Blood Urea Nitrogen 12 mg/dL (9-20); Calcium 8.6 mg/dL (8.4-10.2); Carbon Dioxide 27 mmol/L (22-30); Chloride 97 mmol/L (98-107); Glucose 99 mg/dL (74-99); Potassium 4.8 mmol/L (3.5-5.1); Salicylate <1.0 mg/dL; Sodium 130 mmol/L (137-145)
[2017-10-16 15:35] LABS: Basophils % (A) 0 %; Eosinophils # (A) 0.7 k/uL (0-0.7); Eosinophils % (A) 9 %; HCT 29.7 % (39.0-53.0); Lymphocytes # (A) 1.8 k/uL (1.0-4.8); Lymphocytes % (A) 21 %; MCH 30.9 pg (25.0-35.0); MCHC 33.9 g/dL (31.0-37.0); MCV 91.3 fL (80.0-100.0); Mean Platelet Volume 6.8; Monocytes # (A) 0.7 k/uL (0-1.0); Monocytes % (A) 9 %; Neutrophils # (A) 4.9 k/uL (1.3-7.7); Neutrophils % (A) 58 %; Platelet Count 189 k/uL (150-450); RBC 3.25 m/uL (4.30-5.90); RDW 14.6 % (11.5-15.5); WBC 8.4 k/uL (3.8-10.6)
[2017-10-16] MEDS: SULFAMETHOX-TMP 800-160MG 1 EACH TAB PO SCH (18:04)
[2017-10-16] MEDS ORDERED: VANCOMYCIN IV PER PHARMACY 1 EACH MISC MISCELLANE PRN (19:17)
[2017-10-16] MEDS ORDERED: AMPICILLIN-SULBACTAM 3 GM in SODIUM CHLORIDE 0.9% 100 ML IVPB STA (19:17)
[2017-10-16] MEDS ORDERED: VANCOMYCIN 1,000 MG in SODIUM CHLORIDE 0.9% 250 ML IVPB STA (19:18)
--- NOTE | 2017-10-16 19:26 | ED ---
Psych HPI - General Chief Complaint: Psychiatric Symptoms Stated Complaint: Petition Time Seen by Provider: 10/16/17 14:25 Source: EMS Mode of arrival: EMS - History of Present Illness Initial Comments: This 72-year-old white male presents from [facility] with behavioral problems. He apparently has been refusing to perform normal activities per family per staff. He apparently will not want to shower/base, or changes closed. He gets quite mad and agitated when people tried to get him to do these tasks. He paralysis got somewhat progressive. The patient does have psychiatric problems. He's been in the hospital at [place] this past month and then was at [facility]' past week. His psychiatric medications have been changed multiple times. The family feels as though he may not be getting the appropriate medications that he should be on. The patient is a poor historian himself is unable to give any relevant history. The family further relates that he does have a significant leg rash. He's been dealing with a leg rash approximately one year and was getting wound care evaluations in the past. The wound is almost healed up when in the hospital this past week but then got worse in the rehab facility. He apparently was diagnosed with MRSA on his last visit to the hospital. He has had increase in the rash over the last couple of days. No other complaints or modifying factors. - Related Data Home Medications Medication Instructions Recorded Confirmed Atorvastatin [Lipitor] 40 mg PO HS 09/08/17 10/16/17 Metoprolol Succinate (ER) [Toprol 50 mg PO DAILY 09/08/17 10/16/17 XL] Omeprazole 40 mg PO DAILY 09/08/17 10/16/17 LORazepam [Ativan] 0.5 mg PO Q8H PRN 10/16/17 10/16/17 Lacosamide [Vimpat] 50 mg PO Q12H 10/16/17 10/16/17 Mupirocin 2% Oint [Bactroban 2% 1 applic TOPICAL DAILY PRN 10/16/17 10/16/17 Oint] Mupirocin 2% Oint [Bactroban 2% 1 applic TOPICAL MOTUWETHFR 10/16/17 10/16/17 Oint] Previous Rx's Medication Instructions Recorded Nicotine 21Mg/24Hr Patch [Habitrol] 1 patch TRANSDERM DAILY #0 patch 09/22/17 QUEtiapine [SEROquel] 100 mg PO HS tab 09/22/17 Tamsulosin [Flomax] 0.4 mg PO PC-SUPPER cap.er.24h 09/22/17 Allergies Allergy/AdvReac Type Severity Reaction Status Date / Time No Known Allergies Allergy Verified 10/16/17 14:56 Review of Systems ROS Statement: Those systems with pertinent positive or pertinent negative responses have been documented in the HPI. ROS Other: All systems not noted in ROS Statement are negative. Past Medical History Past Medical History: Cancer, Dementia, Hyperlipidemia Additional Past Medical History / Comment(s): prostate CA, leg ulcers History of Any Multi-Drug Resistant Organisms: MRSA Date of last positivie culture/infection: 09/18/17 MDRO Source:: right navarro Past Surgical History: No Surgical Hx Reported Past Psychological History: Schizophrenia Smoking Status: Current every day smoker Past Alcohol Use History: None Reported Past Drug Use History: None Reported General Exam - General Exam Comments Initial Comments: GENERAL: The patient is well nourished and well hydrated. VITAL SIGNS: Heart rate, blood pressure, respiratory rate reviewed as recorded in nurse's notes. EYES: Pupils are round and reactive. Extraocular movements are intact. No conjunctival / lid redness or swelling. ENT: No external evidence of injury, swelling, or ecchymosis. Airway is patent. Throat is clear. NECK: Nontender. No swelling or evidence of injury. No subcutaneous emphysema. Trachea is midline. No thyroid mass. HEART: Regular rate and rhythm. Good peripheral pulses. LUNGS/CHEST: Breath sounds clear and equal bilaterally. No rales, rhonchi, or wheezes. No ecchymosis, subcutaneous emphysema, or tenderness. ABDOMEN: Abdomen soft without tenderness. No palpable masses or organomegaly. No peritoneal signs. No abdominal wall swelling or ecchymosis. EXTREMITIES: No extremity tenderness. Normal muscle tone and function. No thoracolumbar tenderness. NEUROLOGIC: Sensation is grossly intact. Cranial nerve exam reveals face is symmetrical, tongue is midline, speech is clear. SKIN: There is a rash noted to the bilateral lower legs worse on the right with some slight ulcerations noted. There is a slight yellowish drainage. There is some moderate edema noted. PSYCHIATRIC: Alert and pleasant overall. He does get aggressive at times with the staff. Limitations: altered mental status Course Vital Signs 10/16/17 10/16/17 14:37 19:16 Temperature 97.9 F Pulse Rate 55 L 83 Respiratory 18 16 Rate Blood Pressure 175/75 160/71 O2 Sat by Pulse 99 95 Oximetry Medical Decision Making - Medical Decision Making The patient was seen and examined. All diagnostics are reviewed. The patient does appear to be somewhat anemic. He appears to have bilateral lower extremity cellulitis is likely due to the MRSA. He is placed on some vancomycin as well as some Unasyn. Psychiatry did also see the patient in the ER and do feel as though he would require further placement for straightening out his medications. His medications apparently had been changed repetitively at each place that he goes. They feel as though he needs to be on the same regimen that he was placed on while in inpatient psychiatry last month. Case is discussed with ONELIA Valdez from internal medicine and she is agreeable with admission with psychiatry and infectious disease to consult. - Lab Data Result diagrams: 10/16/17 15:18 10/16/17 15:18 Lab Results 10/16/17 10/16/17 10/16/17 Range/Units 14:36 15:18 15:18 WBC 8.4 (3.8-10.6) k/uL RBC 3.25 L (4.30-5.90) m/uL Hgb 10.0 L (13.0-17.5) gm/dL Hct 29.7 L (39.0-53.0) % MCV 91.3 (80.0-100.0) fL MCH 30.9 (25.0-35.0) pg MCHC 33.9 (31.0-37.0) g/dL RDW 14.6 (11.5-15.5) % Plt Count 189 (150-450) k/uL Neutrophils % 58 % Lymphocytes % 21 % Monocytes % 9 % Eosinophils % 9 % Basophils % 0 % Neutrophils # 4.9 (1.3-7.7) k/uL Lymphocytes # 1.8 (1.0-4.8) k/uL Monocytes # 0.7 (0-1.0) k/uL Eosinophils # 0.7 (0-0.7) k/uL Basophils # 0.0 (0-0.2) k/uL Sodium 130 L (137-145) mmol/L Potassium 4.8 (3.5-5.1) mmol/L Chloride 97 L (98-107) mmol/L Carbon Dioxide 27 (22-30) mmol/L Anion Gap 6 mmol/L BUN 12 (9-20) mg/dL Creatinine 0.71 (0.66-1.25) mg/dL Est GFR (CKD-EPI)AfAm >90 (>60 ml/min/1.73 sqM) Est GFR (CKD-EPI)NonAf >90 (>60 ml/min/1.73 sqM) Glucose 99 (74-99) mg/dL Calcium 8.6 (8.4-10.2) mg/dL Urine Color Light Yellow Urine Appearance Clear (Clear) Urine pH 6.5 (5.0-8.0) Ur Specific [place] 1.004 (1.001-1.035) Urine Protein Negative (Negative) Urine Glucose (UA) Negative (Negative) Urine Ketones Negative (Negative) Urine Blood Negative (Negative) Urine Nitrite Negative (Negative) Urine Bilirubin Negative (Negative) Urine Urobilinogen <2.0 (<2.0) mg/dL Ur Leukocyte Esterase Negative (Negative) Salicylates <1.0 mg/dL Urine Opiates Screen Not Detected (NotDetected) Ur Oxycodone Screen Not Detected (NotDetected) Urine Methadone Screen Not Detected (NotDetected) Ur Propoxyphene Screen Not Detected (NotDetected) Acetaminophen <10.0 ug/mL Ur Barbiturates Screen Not Detected (NotDetected) U Tricyclic Antidepress Detected H (NotDetected) Ur Phencyclidine Scrn Not Detected (NotDetected) Ur Amphetamines Screen Not Detected (NotDetected) U Methamphetamines Scrn Not Detected (NotDetected) U Benzodiazepines Scrn Not Detected (NotDetected) Urine Cocaine Screen Not Detected (NotDetected) U Marijuana (THC) Screen Not Detected (NotDetected) Serum Alcohol <10 mg/dL Disposition Clinical Impression: Aggressive behavior, Dementia, Bilateral lower leg cellulitis, Hypertension, Chronic wound of extremity Disposition: ADMITTED IP TO THIS [facility] Condition: Fair Is patient prescribed a controlled substance at d/c from ED?: No Referrals: Johan Boothe MD [Primary Care Provider] - 1-2 days Time of Disposition: 19:25 Decision Date: 10/16/17 Decision Time: 19:25
[2017-10-16] MEDS ORDERED: VANCOMYCIN 1,500 MG in SODIUM CHLORIDE 0.9% 250 ML IVPB STA (19:27)
[2017-10-16] MEDS ORDERED: ACETAMINOPHEN TAB 325 MG TAB PO PRN (19:28)
[2017-10-16] MEDS ORDERED: ONDANSETRON 4 MG/2 ML VIAL IVP PRN (19:28)
[2017-10-16] MEDS ORDERED: NALOXONE 0.4 MG/ML 1 ML VIAL IV PRN (19:28)
[2017-10-16] MEDS ORDERED: MUPIROCIN 2% OINT 22 GM TUBE TOPICAL PRN (19:33)
[2017-10-16] MEDS: MUPIROCIN 2% OINT 22 GM TUBE TOPICAL SCH (21:01)
[2017-10-16] MEDS: ATORVASTATIN 40 MG TAB PO SCH (21:02)
[2017-10-16] MEDS: QUEtiapine 100 MG TAB PO SCH (21:02)
[2017-10-16] MEDS: LACOSAMIDE 50 MG TABLET PO SCH (21:06)
[2017-10-16] MEDS: LORazepam 0.5 MG TAB PO SCH (21:06)
[2017-10-17] MEDS ORDERED: TEMAZEPAM 15 MG CAP PO PRN (01:02)
--- NOTE | 2017-10-17 03:42 | HP ---
HISTORY AND PHYSICAL DATE OF SERVICE: 10/16/2017 CHIEF COMPLAINTS: Change in mental status, aggressive behavior. HISTORY OF PRESENT ILLNESS: This 72-year-old gentleman with a past medical history of multiple medical problems including dementia, GERD, hyperlipidemia, schizophrenia, prostate cancer, being followed by Dr. Boothe in the outpatient setting, is in [facility] at this time. During the previous admission, patient was . Patient also had bilateral leg ulcers, right more the left, Pseudomonas MRSA and enterococcus grown from the culture. Patient given antibiotics. Infectious Disease was also consulted. Currently the patient is sedated, but unable to give a coherent history. Most of the history taken from my discussion with staff and review of the chart. PAST MEDICAL HISTORY: Past history of dementia, GERD, hyperlipidemia, history of prostate cancer. MEDICATIONS: Prior to admission include home medications are: 1. Flomax 0.4 supper. 2. Seroquel 100 mg q.h.s. 3. Omeprazole 40 mg b.i.d. 4. Habitrol 1 daily. 5. Bactroban 2% Monday, Monday, Monday, Monday. 6. Bactroban 2% application daily p.r.n. 7. Toprol-XL 50 mg. 8. Vimpat 50 mg p.o. b.i.d. 9. Ativan 0.5 mg p.o. p.r.n. 10.Lipitor 40 mg q.h.s. ALLERGIES: Allergies are none. Family history, social history and review of systems could not be taken, the patient is sedated. PHYSICAL EXAM: VITAL SIGNS: Pulse 67, blood pressure 177/72, respiration 18, temperature 97.4, pulse ox 98% on room air. HEENT: Conjunctivae normal. Oral mucosa moist. NECK: No jugular venous distention. No carotid bruit. No lymph node enlargement. CARDIOVASCULAR: S1, S2 muffled. RESPIRATORY: Breath sounds diminished in the bases. No rhonchi. No crackles. ABDOMEN: Soft, nontender. LEGS: Bilateral leg cellulitis. Right worse than the left. Nervous system could not be tested completely. SKIN as mentioned earlier. Lymphatics: No lymph nodes palpable in the neck, axillae or groin. Joints no active deforming arthropathy. LABS: WBC 8, hemoglobin is 10, sodium 130. ASSESSMENT: 1. Bilateral leg cellulitis, right more than the left. 2. Hyponatremia. 3. Possible psychosis versus schizophrenia exacerbation. 4. Dementia. 5. Gastroesophageal reflux disease. 6. Hyperlipidemia. 7. History of prostate cancer. 8. History of Methicillin-resistant Staphylococcus aureus. 9. Remote history of nicotine dependence. RECOMMENDATIONS AND DISCUSSION: In this 72-year-old gentleman who presented with multiple complex medical issues , we will monitor the patient closely. Continue the current medications, management and symptomatic treatment. Otherwise, at this time, I recommend continue the broad- spectrum IV antibiotics. Vancomycin has been initiated. Cultures will be obtained. Resume the home medications. Psychiatric consultation. Otherwise prognosis is guarded because of the multiple complex medical issues. Further recommendations to follow. See orders for further details. IV Unasyn also has been initiated, Ativan p.r.n. has been prescribed. Prognosis guarded. Further recommendations to follow. MMODL / IJN: [id number] / EMELY
[2017-10-17] MEDS: LORazepam 0.5 MG TAB PO SCH ×3 (05:35→21:47)
[2017-10-17] MEDS: VANCOMYCIN 1,500 MG in SODIUM CHLORIDE 0.9% 250 ML IVPB SCH ×2 (06:11→17:04)
[2017-10-17] MEDS ORDERED: PANTOPRAZOLE 40 MG/10 ML VIAL IV SCH (09:00)
[2017-10-17] MEDS: AMPICILLIN-SULBACTAM 3 GM in SODIUM CHLORIDE 0.9% 100 ML IVPB SCH ×2 (09:49→14:07)
[2017-10-17] MEDS: SULFAMETHOX-TMP 800-160MG 1 EACH TAB PO SCH (09:50)
[2017-10-17] MEDS: MUPIROCIN 2% OINT 22 GM TUBE TOPICAL SCH (09:50)
[2017-10-17] MEDS: NICOTINE 21MG/24HR PATCH TRANSDERM SCH (09:50)
[2017-10-17] MEDS: PANTOPRAZOLE 40 MG TABLET PO SCH (09:51)
[2017-10-17] MEDS: METOPROLOL SUCCINATE (ER) 50 MG TAB.ER.24H PO SCH (09:51)
[2017-10-17] MEDS: ENOXAPARIN 40 MG/0.4 ML SYRINGE SQ SCH (09:51)
[2017-10-17] MEDS: LACOSAMIDE 50 MG TABLET PO SCH ×2 (09:53→21:47)
--- NOTE | 2017-10-17 12:21 | P.CN ---
Psychiatric Consult - . Consult date: 10/17/17 Consult:: 10/17/17 12:12 Identification: Patient is a 72-year-old male who was brought in from [facility] where he had been placed after his discharge here on September 22. Patient apparently has become increasingly aggressive and uncooperative there. He was at [facility] last week after he had a seizure. Reason for Consult: Aggressive behavior History of Present Illness: Patient's chart was reviewed, this patient is known to me from his last admission. Patient had been placed on the psychiatric unit due to noncompliance with medication, he had been living in his own house with caregivers for several hours a day. He been refusing medication and had become increasingly aggressive and combative as well as paranoid that the neighbors are trying to kill his dog. Patient has a history of a neurocognitive disorder etiology unknown. Patient while on the psychiatric unit had initially been started on Zyprexa but due to it dropping his blood pressure he was switched to Seroquel. Patient was also started on Celexa. Patient had a seizure on the unit and was noted to have a low sodium. Patient was transferred to the medical floor and started on Depakote to control his seizures, it should be noted that the patient had been on antiseizure medication over a year ago for a number of years due to alcohol-induced seizures. Patient was placed on Depakote and was restarted on Seroquel for aggressive behavior on the medical floor when he was more alert. Patient was stable at the time of discharge on Depakote and Seroquel 100 mg at bedtime. Patient was also on Klonopin at that time which has been discontinued since that admission. I attempted to evaluate the patient today he is sleeping soundly and not able to awaken him. I will return later this afternoon to reassess the patient. Returned to see the patient he was sitting up in bed eating his lunch, patient remains a poor historian. Patient was unable to tell me why he was here, patient is unable to provide any history. Patient on his last admission had presented with increasing paranoia, thinking the neighbors are trying to kill his dog, not taking his medications and increasingly agitated. Patient this time was admitted from the longterm for refusing medication and becoming aggressive and combative. There is no evidence of that behavior today when I speak with the patient. Past Psychiatric History: Patient was admitted to psychiatric unit in September for the above-stated behaviors and was placed on Seroquel 100 mg at bedtime, Depakote 7 or 50 mg twice a day as well as Seroquel 25 mg 3 times a day when necessary for agitation. Past Medical/Surgical History: Patient has a history of GERD, hyperlipidemia, HTN, history of prostate cancer, history of seizure disorder and leg ulcers bilaterally Family History: Unable to obtain Social History: Patient had been living in his own home and was receiving assistance from the family several hours a day. Patient after his last discharge was transferred to a longterm. Substance Use History: Patient is unable to give a history, but per reviewing the chart the patient has a history of alcohol use in the past and had alcohol- related seizure disorder. Legal History: Unable to obtain Mental status: Appearance/Attitude: Patient is sitting up in bed, dressed in a hospital gown, makes eye contact and was cooperative Behavior: There is no evidence of psychomotor agitation or retardation. Speech/Language: Patient speaks in a normal volume and rhythm, he is coherent Thought Process: Patient responds to questions with very brief answers with little elaboration, with encouragement the patient is unable to elaborate further Thought Content: Patient does not appear to be responding to internal stimuli, he did not spontaneously voice any delusional ideation. Suicidal/Homicidal Ideation: Patient denied that he was currently suicidal and said that he didn't want to hurt anyone Sensorium/Cognition: Patient is alert and oriented to person only Mood/Affect: Patient's mood was pleasant and his affect was blunted Insight/Judgment: Patient's insight and judgment are impaired Assessment: Patient has a history of a neurocognitive disorder, major etiology unknown with behavioral disturbances, patient also has a history of alcohol use and alcohol-induced seizure disorder as evidenced by an EEG that was performed in 2017 to see if his antiseizure medicine could be stopped. Patient had been maintained on Seroquel and Klonopin from his primary care physician while he was living at home with his family providing caregiving services several hours a day. Patient had not been taking his medication, had become paranoid thinking the neighbors were trying to kill his dog, was combative with family. Patient was admitted to the psychiatric unit and placed on some Seroquel and Celexa and was improving when he had a seizure and was transferred to the medical floor. While on the medical floor the patient was begun on Depakote IV and once he became less sedated his aggressive behavior returned and so he was restarted on Seroquel. Patient doing well on the medical floor and was transferred to a longterm. Patient apparently had not been continued on his Depakote after his discharge from the medical floor and had another seizure was sent to the hospital last week when he was placed on Vimpat. Patient has been continued on Seroquel 100 mg at bedtime he is no longer on Klonopin and presented to the emergency room after becoming aggressive and combative at the longterm. Patient's sodium is also noted to be low on this admission which most likely also contributed to his agitation and behavioral changes. Diagnosis: Neurocognitive disorder, major etiology unknown with behavioral disturbance Plan: Patient was continued on his Seroquel 100 mg at bedtime, I would not begin the use of any benzodiazepines on a scheduled basis as this will only add to the patient's confusion and disinhibition, I also discontinued the patient's Restoril. I also began Seroquel 25 mg 3 times a day when necessary for agitation should the patient become agitated this would be preferred to treat his agitation versus using a benzodiazepine. Patient's aggression was well controlled with the use of Depakote during his last admission and I would recommend that we restart the Depakote in place of the Vimpat if that is acceptable to medicine. If not I will continue to follow the patient while he is on the medical floor and adjust his Seroquel to control his behavioral disturbance. Patient's sodium was also low on admission which is being corrected, and the patient's leg ulcers are continuing to be treated with antibiotics. Patient can be stabilized on the medical floor while his medical problems are also being addressed, patient would not benefit from transfer to the psychiatric unit. I will follow the patient while he is in the hospital and adjust medications accordingly to stabilize his behavioral disturbance. 10/17/17 12:15 10/17/17 12:20 10/17/17 13:28 10/17/17 13:33 10/17/17 13:35 10/17/17 13:39
--- NOTE | 2017-10-17 16:22 | PN ---
PROGRESS NOTE DATE OF SERVICE: 10/17/2017 This 72-year-old gentleman who was admitted with bilateral leg cellulitis, right more than left, also had hyponatremia. Patient also had change in mental status and possibly psychosis. The patient has been petitioned at this time. Past medical history reviewed. Review of systems could not be taken because the patient is confused. CURRENT MEDICATIONS: Current medications are reviewed and include: 1. Tylenol p.r.n. 2. Unasyn 3 grams q.i.d. 3. Lipitor 40 mg at bedtime. 4. Lovenox 40 units subcutaneously daily. 5. Vimpat 50 mg b.i.d. 6. Ativan 0.5 mg q.8. 7. Toprol XL 50 mg p.o. daily. 8. Bacitracin. 9. Bactroban. 10.Narcan. 11.Habitrol 14. 12.Zofran. 13.Protonix. 14.Seroquel 100 mg at bedtime. 15.Flomax. 16.Bactrim DS. 17.Vancomycin IV. PHYSICAL EXAMINATION: Patient is alert, oriented x1. Pulse 64, blood pressure 178/84, respiration 18, temperature 97.6, pulse ox 99% on room air. HEENT: Conjunctivae normal. Oral mucosa moist. NECK: No jugular venous distention. No carotid bruit. No lymph node enlargement. CARDIOVASCULAR SYSTEM: S1, S2 muffled. RESPIRATORY SYSTEM: Breath sounds diminished at the bases. A few scattered rhonchi and crackles. ABDOMEN: Soft, nontender. LEGS: Bilateral leg cellulitis and wounds present. NERVOUS SYSTEM: Diffusely weak. LAB INVESTIGATIONS: Lab investigations at this time show WBC 8.4, hemoglobin 10, sodium 130. ASSESSMENT: 1. Bilateral leg cellulitis, right more the left, with failure of outpatient treatment. 2. Hyponatremia. 3. Possible psychosis versus schizophrenia exacerbation. 4. Dementia. 5. Gastroesophageal reflux disease. 6. Hyperlipidemia. 7. History of prostate cancer. 8. History of Methicillin-resistant Staphylococcus aureus. 9. Remote history of nicotine dependence. RECOMMENDATIONS AND DISCUSSION: I recommend to continue current medication, continue symptomatic treatment. Continue with IV antibiotics. Psychiatry input appreciated. Otherwise, we will closely monitor. Infectious Disease also has been consulted. Guarded prognosis. Further recommendations to follow. MMODL / IJN: [id number] /
[2017-10-17] MEDS: amLODIPine 10 MG TAB PO SCH (17:05)
[2017-10-17] MEDS: TAMSULOSIN 0.4 MG CAP.ER.24H PO SCH (17:42)
[2017-10-17] MEDS: QUEtiapine 25 MG TAB PO PRN (19:32)
[2017-10-17] MEDS: QUEtiapine 100 MG TAB PO SCH (21:47)
[2017-10-17] MEDS: CEFEPIME 2 GM in SODIUM CHLORIDE 0.9% 50 ML IVPB SCH (21:47)
[2017-10-17] MEDS: ATORVASTATIN 40 MG TAB PO SCH (21:47)
--- NOTE | 2017-10-17 21:52 | CONS ---
CONSULTATION DATE OF SERVICE: 10/17/2017 REASON FOR CONSULTATION: Right lower extremity venostasis ulcer and cellulitis. HISTORY OF PRESENT ILLNESS: The patient is a 72-year-old male with a past medical history significant for right lower extremity venostasis ulcer with secondary cellulitis, for which the patient has been at this facility. The patient resides currently at a prison, from where the patient was sent to the ER by the nursing staff for evaluation of aggressive behavior. The patient has been refusing treatment. The patient gets mad at the nursing staff. For these reasons the patient was brought into the ER for further evaluation of the same. The patient was noted to have a wound on his right leg, for which I was asked to see the patient for further recommendations. Patient at this time is not a very good historian. When asked specifically about any pain, he did complain of pain; however, he was unable to characterize it any further. Currently a bacitracin cream is being applied per the nursing staff. No significant drainage. Patient has been afebrile. His white count has been normal and UA was negative. Urine drug screen was positive for tricyclics. REVIEW OF SYSTEMS: Could not be reliably obtained. The positive points have been mentioned in the HPI. PAST MEDICAL HISTORY: 1. Hyperlipidemia. 2. Dementia. 3. Prostate cancer. 4. Lower extremity venostasis ulcer. 5. Schizophrenia. PAST SURGICAL HISTORY: Multiple debridements of his leg ulcers. SOCIAL HISTORY: No history of drinking or drug use. FAMILY HISTORY: No pertinent findings noticed. ALLERGIES: NO KNOWN DRUG ALLERGIES. CURRENT MEDICATIONS: 1. Tylenol. 2. Norvasc. 3. Unasyn 3 grams q.6. 4. Lipitor. 5. Lovenox. 6. Ativan. 7. Toprol XL. 8. Bactroban ointment. 9. Narcan. 10.Nicotine patch. 11.Zofran. 12.Protonix. 13.Seroquel. 14.Flomax. 15.Bactrim DS. 16.Vancomycin. PHYSICAL EXAMINATION: Blood pressure 178/84 with a pulse of 64, temperature 97.6. He is 99% on room air. General description is an elderly male lying in bed in no distress. No tachypnea or accessory muscle of respiration use. HEENT examination shows pallor. There is no scleral icterus. Oral mucosa membrane is dry. No pharyngeal erythema or thrush. NECK: Trachea is central. No thyromegaly. LUNGS: Unlabored breathing. Clear to auscultation anteriorly. No wheeze or crackle. HEART: S1, S2. Regular rate and rhythm. ABDOMEN: Soft. No tenderness. No guarding or rigidity. EXTREMITIES: Bilateral extremities with venostasis ulceration, most marked on the right leg with slough tissue. Minimal surrounding erythema. No foul-smelling drainage. SKIN EXAMINATION: No rashes. No mass palpable. NEUROLOGICAL: The patient is currently awake, alert, oriented x1. Mood and affect normal. LABS: Hemoglobin is 10, white count 8.4. BUN of 12, creatinine 0.71. UA has been negative. Patient's wound cultures are currently pending. Previous culture was positive for Pseudomonas aeruginosa, Enterococcus faecalis and MRSA. DIAGNOSTIC IMPRESSION AND PLAN: Patient with right lower extremity venostasis ulcer with secondary cellulitis with a previous culture positive for Pseudomonas aeruginosa and methicillin-resistant Staphylococcus aeruginosa with a question of possible infection with the same pathogen. PLAN: 1. Local wound care with Medih[facility] followed by moist dressing. 2. Kal the area of the redness. 3. Vancomycin, Pharmacy to dose, target trough of 15 while watching his kidney function closely. 4. Discontinue the Unasyn and Bactrim DS. I will add cefepime to cover for the pseudomonas that was grown last visit. 5. We will follow up on his clinical condition as well as cultures to further adjust medication if needed. Thank you for this consultation. Will follow this patient along with you. MMODL / IJN: [id number] /
[2017-10-18] MEDS: VANCOMYCIN 1,500 MG in SODIUM CHLORIDE 0.9% 250 ML IVPB SCH ×2 (06:29→18:10)
[2017-10-18] MEDS: LORazepam 0.5 MG TAB PO SCH ×3 (06:29→20:40)
[2017-10-18] MEDS: ENOXAPARIN 40 MG/0.4 ML SYRINGE SQ SCH (07:37)
[2017-10-18] MEDS: LACOSAMIDE 50 MG TABLET PO SCH ×2 (07:38→21:38)
[2017-10-18] MEDS: NICOTINE 21MG/24HR PATCH TRANSDERM SCH (07:38)
[2017-10-18] MEDS: amLODIPine 10 MG TAB PO SCH (07:38)
[2017-10-18] MEDS: METOPROLOL SUCCINATE (ER) 50 MG TAB.ER.24H PO SCH (07:38)
[2017-10-18] MEDS: PANTOPRAZOLE 40 MG TABLET PO SCH (07:38)
[2017-10-18 08:21] LABS: Basophils % (A) 0 %; Eosinophils # (A) 0.7 k/uL (0-0.7); Eosinophils % (A) 9 %; HCT 33.4 % (39.0-53.0); Lymphocytes # (A) 1.3 k/uL (1.0-4.8); Lymphocytes % (A) 17 %; MCH 30.4 pg (25.0-35.0); MCHC 32.9 g/dL (31.0-37.0); MCV 92.3 fL (80.0-100.0); Mean Platelet Volume 6.7; Monocytes # (A) 0.5 k/uL (0-1.0); Monocytes % (A) 6 %; Neutrophils # (A) 5.1 k/uL (1.3-7.7); Neutrophils % (A) 66 %; Platelet Count 204 k/uL (150-450); RBC 3.62 m/uL (4.30-5.90); RDW 14.5 % (11.5-15.5); WBC 7.8 k/uL (3.8-10.6)
[2017-10-18 08:34] LABS: Anion Gap 9 mmol/L; Blood Urea Nitrogen 12 mg/dL (9-20); Carbon Dioxide 26 mmol/L (22-30); Chloride 101 mmol/L (98-107); Glucose 129 mg/dL (74-99); Potassium 4.7 mmol/L (3.5-5.1); Sodium 136 mmol/L (137-145)
[2017-10-18 08:35] LABS: Calcium 8.9 mg/dL (8.4-10.2)
[2017-10-18] MEDS: CEFEPIME 2 GM in SODIUM CHLORIDE 0.9% 50 ML IVPB SCH ×2 (10:29→21:38)
--- NOTE | 2017-10-18 13:13 | P.PN ---
Subjective Progress Note Date: 10/25/17 Progress note being dictated for Dr. Giron. Interval history: This a 72-year-old gentleman admitted with bilateral lower extremity cellulitis venous stasis ulcers, hyponatremia, possible psychosis. Maintained on antibiotics as per infectious disease. Evaluated by psychiatry with recommendations noted. Cooperative with no aggressive behavior reported. T-max 99.2, WBC within normal limits. Sodium 136. Objective - Vital Signs Vital signs: Vital Signs Temp 98.5 F 10/18/17 06:28 Pulse 52 L 10/18/17 06:28 Resp 17 10/18/17 06:28 BP 155/74 10/18/17 06:28 Pulse Ox 96 10/18/17 06:28 Intake & Output 10/17/17 10/18/17 10/18/17 18:59 06:59 18:59 Intake Total 1050 Output Total 200 450 Balance 850 -450 Weight 77.111 kg Intake: Oral 1050 Output: Urine 200 450 Other: Voiding Method Diaper Urinal Diaper # Voids 4 2 2 # Bowel Movements 1 - Exam PHYSICAL EXAM: VITAL SIGNS: As above GENERAL: Lying in bed, sleepy, arouses easily, no acute distress HEENT: Conjunctivae normal. eyes normal. Oral mucosa moist NECK: No JVD. No thyroid enlargement. No LNs CARDIOVASCULAR: S1, S2 muffled. No murmur RESPIRATION: Breath sounds diminished in the bases. Occasional scattered rhonchi and crackles. No bronchial breathing. ABDOMEN: Soft, nontender . No guarding. no masses palpable. Bowel sounds heard. LEGS: Bilateral leg cellulitis with venous stasis wounds present. Dressings clean dry and intact. PSYCHIATRY: Alert and oriented -3, mood and affect normal. NERVOUS SYSTEM: Diffuse weakness No focal deficits. Microbiology 10/17/17 00:30 Leg - Right Gram Stain - Preliminary 10/17/17 00:30 Leg - Right Wound Culture - Preliminary Gram Neg Bacilli Presumptive Staph aureus Group D Enterococcus - Labs CBC & Chem 7: 10/18/17 07:58 10/18/17 07:58 Labs: Abnormal Lab Results - Last 24 Hours (Table) 10/18/17 10/18/17 Range/Units 07:58 07:58 RBC 3.62 L (4.30-5.90) m/uL Hgb 11.0 L (13.0-17.5) gm/dL Hct 33.4 L (39.0-53.0) % Sodium 136 L (137-145) mmol/L Glucose 129 H (74-99) mg/dL Microbiology - Last 24 Hours (Table) 10/17/17 00:30 Gram Stain - Preliminary Leg - Right Wound Culture - Preliminary Gram Neg Bacilli Presumptive Staph aureus Group D Enterococcus Assessment and Plan Assessment: 1. Bilateral leg cellulitis,venous stasis ulcers,right greater than left with failure of outpatient treatment. Wound cultures currently growing Gram Neg Bacilli, Presumptive Staph aureus,Group D Enterococcus 2. Hyponatremia, improving 3. Possible psychosis, possible schizophrenia exacerbation 4. Dementia 5. Gastroesophageal reflux disease 6. History of MRSA Plan: Continue on current medication regime ,monitoring and symptomatic treatment. IV antibiotics/wound care as per infectious disease. Follow cultures closely. Follow closely with psychiatry. Further recommendations to follow. The impression and plan of care has been dictated as directed. : I performed a history and examination of this patient, discussed the same with the dictator. I agree with the dictator's note ,documented as a scribe. Any additional findings or plans will be noted.
--- NOTE | 2017-10-18 14:15 | P.PN ---
Progress Note - Text Progress Note Date: 10/18/17 Interval History: Patient is a 72-year-old male is being seen in follow-up to a psychiatric consultation, patient was lying in his bed, stated that he was watching television and reported that he had just finished lunch. Mental Status: Appearance/Attitude: Patient was lying in bed, made eye contact and was cooperative Behavior: Patient did not exhibit any psychomotor agitation or retardation Speech/Language: Patient responded to questions with brief answers, he spoke in a normal volume and rhythm and was coherent Thought Process: Patient's answers were very brief, non-elaborative and at times he could not respond to the question not understanding even when repeated several times Thought Content: Patient does not appear to be responding to internal stimuli, unable to evaluate whether he is having any paranoid or delusional ideation. Suicidal/Homicidal Ideation: Patient denies feeling suicidal or homicidal at this time Sensorium/Cognition: Patient is alert and oriented to person only Mood/Affect: Patient's mood was cooperative and his affect is blunted Insight/Judgment: Patient's insight and judgment are limited Assessment: Patient has been continued on Vimpat, and is receiving Seroquel 100 mg at bedtime, patient is also receiving Ativan 0.5 mg 3 times a day on a scheduled basis, is difficult to assess how the patient is responding to Seroquel and how agitated he may or may not be while receiving Ativan as well Ativan can cause patient's with a neurocognitive disorder to become disinhibited. Patient also received 1 dose of Seroquel when necessary. Patient remains alert and oriented to person only. Plan: We'll continue Seroquel 100 mg at bedtime, Seroquel 25 mg on an as-needed basis for agitation 3 times a day and would suggest changing the Ativan to when necessary and consider discontinuing it to assess how well the Seroquel is working to control this gentleman's agitated aggressive behavior. I will continue to follow the patient to assess his response to the Seroquel, he is not a candidate for transfer to the inpatient psychiatric unit and can be stabilized on the medical floor.
[2017-10-18] MEDS: QUEtiapine 25 MG TAB PO PRN (16:44)
[2017-10-18] MEDS: TAMSULOSIN 0.4 MG CAP.ER.24H PO SCH (17:41)
--- NOTE | 2017-10-18 17:41 | PN ---
PROGRESS NOTE DATE OF SERVICE: 10/18/2017. REASON FOR FOLLOWUP: Right leg venous stasis ulcer and secondary cellulitis. INTERVAL HISTORY: The patient is currently afebrile. She is more awake and alert. Denies having any chest pain or cough. No abdominal pain or any pain to the right leg area. EXAMINATION: Blood pressure 129/59 with a pulse of 68, temperature 97.5. He is 98% on room air. General description is an elderly male lying in bed in no distress. Respiratory system: Unlabored breathing. Clear to auscultation anteriorly. Heart S1, S2 regular rate and rhythm. Abdomen soft, no tenderness. Right leg swelling and redness slightly decreased. No drainage. LABS: Hemoglobin is 11. White count 7.9, BUN of 12, creatinine 0.84. Wound culture with a gram-negative Staph aureus and group D Enterococcus. DIAGNOSTIC IMPRESSION AND PLAN: Patient with right lower extremity venous stasis ulcer secondary to cellulitis with multiple cultures growing from the local wound care. He is currently on vancomycin and cefepime which will be continued, adjusting it further based on the culture report. Local wound care to continue with Medihoney followed by moist dressing to be changed daily. MMODL / IJN: [id number] /
[2017-10-18] MEDS ORDERED: VANCOMYCIN TROUGH DUE 1 EACH MISC MISCELLANE ONE (18:00)
[2017-10-18] MEDS: ATORVASTATIN 40 MG TAB PO SCH (20:40)
[2017-10-18] MEDS: QUEtiapine 100 MG TAB PO SCH (20:40)
[2017-10-19] MEDS: LORazepam 0.5 MG TAB PO SCH ×3 (05:45→20:04)
[2017-10-19 07:52] LABS: Basophils % (A) 0 %; Eosinophils # (A) 1.2 k/uL (0-0.7); Eosinophils % (A) 13 %; HCT 29.9 % (39.0-53.0); HGB 10.3 gm/dL (13.0-17.5); Lymphocytes # (A) 1.8 k/uL (1.0-4.8); Lymphocytes % (A) 20 %; MCH 30.9 pg (25.0-35.0); MCHC 34.3 g/dL (31.0-37.0); MCV 90.1 fL (80.0-100.0); Mean Platelet Volume 7.1; Monocytes # (A) 0.7 k/uL (0-1.0); Monocytes % (A) 8 %; Neutrophils % (A) 57 %; Platelet Count 199 k/uL (150-450); RBC 3.32 m/uL (4.30-5.90); RDW 14.5 % (11.5-15.5); WBC 8.8 k/uL (3.8-10.6)
[2017-10-19 08:55] LABS: Anion Gap 8 mmol/L; Blood Urea Nitrogen 17 mg/dL (9-20); Calcium 8.4 mg/dL (8.4-10.2); Carbon Dioxide 23 mmol/L (22-30); Chloride 103 mmol/L (98-107); Glucose 88 mg/dL (74-99); Potassium 4.6 mmol/L (3.5-5.1); Sodium 134 mmol/L (137-145)
[2017-10-19] MEDS: VANCOMYCIN 1,500 MG in SODIUM CHLORIDE 0.9% 250 ML IVPB SCH ×2 (08:57→18:04)
[2017-10-19] MEDS: NICOTINE 21MG/24HR PATCH TRANSDERM SCH (09:00)
[2017-10-19] MEDS: PANTOPRAZOLE 40 MG TABLET PO SCH (09:00)
[2017-10-19] MEDS: ENOXAPARIN 40 MG/0.4 ML SYRINGE SQ SCH (09:00)
[2017-10-19] MEDS: amLODIPine 10 MG TAB PO SCH (09:00)
[2017-10-19] MEDS: METOPROLOL SUCCINATE (ER) 50 MG TAB.ER.24H PO SCH (09:00)
[2017-10-19] MEDS: LACOSAMIDE 50 MG TABLET PO SCH ×2 (09:02→20:03)
[2017-10-19] MEDS: CEFEPIME 2 GM in SODIUM CHLORIDE 0.9% 50 ML IVPB SCH ×2 (11:01→21:05)
--- NOTE | 2017-10-19 15:18 | PN ---
PROGRESS NOTE DATE OF SERVICE: 10/19/2017 REASON FOR FOLLOWUP: Right lower extremity venostasis, also secondary cellulitis. INTERVAL HISTORY: The patient is currently afebrile. He is breathing comfortably. No chest pain or cough. No abdominal pain on pain in the right leg area. PHYSICAL EXAMINATION: Blood pressure 142/78 with a pulse of 66, temperature is 97.7, he is 96% on room air. General description is an elderly male, lying in bed in no distress. RESPIRATORY SYSTEM: Unlabored breathing, clear to auscultation anteriorly. HEART: S1, S2. Regular rate and rhythm. ABDOMEN: Soft, no tenderness. Right leg wound with slough that has decreased, swelling has improved, no drainage. LABS: Hemoglobin is 10.8, white count of 8.8. Wound culture did shows the presumptive MRSA, Pseudomonas aeruginosa with Enterococcus faecalis. DIAGNOSTIC IMPRESSION AND PLAN: Patient with right lower extremity venostasis ulcer secondary to cellulitis, culture with multiple pathogen. Waiting for sensitivities on the Staphylococcus aureus to determine which antibiotic, more likely oral. [facility] Continue supportive care. MMODL / IJN: [id number] /
--- NOTE | 2017-10-19 15:31 | P.PN ---
Subjective Progress Note Date: 10/19/17 Progress note being dictated for Dr. Giron. Interval history: This a 72-year-old gentleman admitted with bilateral lower extremity cellulitis venous stasis ulcers, hyponatremia, possible psychosis. Maintained on antibiotics as per infectious disease. Evaluated by psychiatry with recommendations noted. Cooperative with no aggressive behavior reported. T-max 99.2, WBC within normal limits. Sodium 136. 10/19/2017 no overnight events. Comfortable, visiting with Family/legal guardian at bedside, watching TV. Evaluated by psychiatry, patient is not a candidate for inpatient psychiatric unit. No aggressive behavior reported. Afebrile. Maintained on IV antibiotics/Wound Care as per infectious disease with significant clinical improvement. Denies pain. Objective - Vital Signs Vital signs: Vital Signs Temp 97.6 F 10/19/17 15:17 Pulse 63 10/19/17 15:17 Resp 19 10/19/17 15:17 BP 120/59 10/19/17 15:17 Pulse Ox 97 10/19/17 15:17 Intake & Output 10/18/17 10/19/17 10/19/17 18:59 06:59 18:59 Intake Total 200 Balance 200 Intake: Oral 200 Other: Voiding Method Urinal Urinal Urinal Diaper Diaper Diaper # Voids 3 3 2 # Bowel Movements 1 - Exam PHYSICAL EXAM: VITAL SIGNS: As above GENERAL: Sitting up in bed, alert, no acute distress HEENT: Conjunctivae normal. eyes normal. Oral mucosa moist NECK: No JVD. No thyroid enlargement. No LNs CARDIOVASCULAR: S1, S2 muffled. No murmur RESPIRATION: Breath sounds diminished in the bases. Occasional scattered rhonchi and crackles. No bronchial breathing. ABDOMEN: Soft, nontender . No guarding. no masses palpable. Bowel sounds heard. LEGS: Improving Bilateral leg cellulitis with venous stasis wounds present. Dressings clean dry and intact. PSYCHIATRY: Alert and oriented -1, mood and affect normal. NERVOUS SYSTEM: Diffuse weakness No focal deficits. Microbiology 10/17/17 00:30 Leg - Right Gram Stain - Preliminary 10/17/17 00:30 Leg - Right Wound Culture - Preliminary Pseudomonas aeruginosa Presumptive MRSA Enterococcus faecalis - Labs CBC & Chem 7: 10/19/17 07:43 10/19/17 07:43 Labs: Abnormal Lab Results - Last 24 Hours (Table) 10/19/17 10/19/17 Range/Units 07:43 07:43 RBC 3.32 L (4.30-5.90) m/uL Hgb 10.3 L (13.0-17.5) gm/dL Hct 29.9 L (39.0-53.0) % Eosinophils # 1.2 H (0-0.7) k/uL Sodium 134 L (137-145) mmol/L Microbiology - Last 24 Hours (Table) 10/17/17 00:30 Gram Stain - Preliminary Leg - Right Wound Culture - Preliminary Pseudomonas aeruginosa Presumptive MRSA Enterococcus faecalis Assessment and Plan Assessment: 1. Bilateral leg cellulitis,venous stasis ulcers,right greater than left with failure of outpatient treatment. Wound cultures currently growing Gram Neg Bacilli, Presumptive Staph aureus,Group D Enterococcus 2. Hyponatremia, improving 3. Possible psychosis, possible schizophrenia exacerbation 4. Dementia 5. Gastroesophageal reflux disease 6. History of MRSA Plan: Continue on current medication regime ,monitoring and symptomatic treatment. Continue following cultures closely. IV antibiotics/wound care as per infectious disease. Neurology consult in place with recommendations pending , related to psychiatry suggesting Depakote in place of Vimpat. Legal guardian at bedside, updated on plan of care, verbalized understanding of and agreement with. Discharge planning in progress for tomorrow, pending final culture results/sensitivity and infectious disease clearance. The impression and plan of care has been dictated as directed. : I performed a history and examination of this patient, discussed the same with the dictator. I agree with the dictator's note ,documented as a scribe. Any additional findings or plans will be noted.
[2017-10-19] MEDS: TAMSULOSIN 0.4 MG CAP.ER.24H PO SCH (18:04)
[2017-10-19] MEDS: QUEtiapine 100 MG TAB PO SCH (20:03)
[2017-10-19] MEDS: ATORVASTATIN 40 MG TAB PO SCH (20:03)
[2017-10-19] MEDS ORDERED: VALPROATE SODIUM 500 MG in SODIUM CHLORIDE 0.9% 50 ML IVPB STA (22:25)
--- NOTE | 2017-10-19 22:42 | P.CNNES ---
History of Present Illness Consult date: 10/19/17 History of Present Illness: The patient is a 72-year-old man with history of bilateralcellulitis in the legs , dementia, hyponatremia, seizure disorder, MRSA infection, who resides at [facility]. He was recently hospitalized breakthrough seizure. He was on Depakote and for some reason this was switched to Vimpat. Neurology was requested to see the patient to see whether Depakote could be introduced back for mood stabilization. The patient has been having some aggressive behaviors. He has been recently admitted to the psychiatric unit. Did have a seizure there and was noted to have a low sodium at the time. X Patient is a poor historian. Is not able to give any details about his medical history. He does have a moderate cognitive impairment. Denies any headache or weakness. Review of Systems ROS unobtainable: due to mental status Past Medical History Past Medical History: Cancer, Dementia, GERD/Reflux, Hyperlipidemia Additional Past Medical History / Comment(s): poor historian, schizophrenia, past fall,prostate CA, rt leg ulcers-mrsa 09-15-17,seizure 09-15-17 History of Any Multi-Drug Resistant Organisms: MRSA Date of last positivie culture/infection: 09/16/17 MDRO Source:: right navarro Past Surgical History: No Surgical Hx Reported Past Anesthesia/Blood Transfusion Reactions: No Reported Reaction Smoking Status: Former smoker - Past Family History Father Family Medical History: Unable to Obtain Mother Family Medical History: Unable to Obtain Medications and Allergies Home Medications Medication Instructions Recorded Confirmed Type Atorvastatin [Lipitor] 40 mg PO HS 09/08/17 10/16/17 History Metoprolol Succinate (ER) [Toprol 50 mg PO DAILY 09/08/17 10/16/17 History XL] Omeprazole 40 mg PO DAILY 09/08/17 10/16/17 History Nicotine 21Mg/24Hr Patch [Habitrol] 1 patch TRANSDERM DAILY #0 patch 09/22/17 Rx QUEtiapine [SEROquel] 100 mg PO HS tab 09/22/17 10/16/17 Rx Tamsulosin [Flomax] 0.4 mg PO PC-SUPPER cap.er.24h 09/22/17 10/16/17 Rx LORazepam [Ativan] 0.5 mg PO Q8H PRN 10/16/17 10/16/17 History Lacosamide [Vimpat] 50 mg PO Q12H 10/16/17 10/16/17 History Mupirocin 2% Oint [Bactroban 2% 1 applic TOPICAL DAILY PRN 10/16/17 10/16/17 History Oint] Mupirocin 2% Oint [Bactroban 2% 1 applic TOPICAL MOTUWETHFR 10/16/17 10/16/17 History Oint] Allergies Allergy/AdvReac Type Severity Reaction Status Date / Time No Known Allergies Allergy Verified 10/16/17 14:56 Physical Examination - Vital Signs Vital Signs: Vital Signs Temp Pulse Resp BP Pulse Ox 10/19/17 15:17 97.6 F 63 19 120/59 97 10/19/17 07:35 96.7 F L 66 19 142/68 96 10/18/17 22:41 97.6 F 84 18 129/75 96 Intake and Output 10/19/17 10/19/17 10/19/17 06:59 14:59 22:59 Intake Total 200 Balance 200 Intake: Oral 200 Other: Voiding Method Urinal Urinal Diaper Diaper # Voids 3 1 # Bowel Movements 1 - Constitutional General appearance: average body habitus - EENT EENT: PERRL - Respiratory Respiratory: lungs clear - Cardiovascular Cardiovascular: regular rate, normal S1 - Integumentary Integumentary: normal - Neurologic Neurologic exam mental status: Patient was awake he was alert he was oriented to person. He thought he was at [place]. He was oriented 1 he had moderate cognitive delay. There is no a aphasia or dysarthria. Cranial nerve examination: PERRL, EOMI, VFF, V1/V2/V3 grossly intact, face symmetric, tongue midline, intact Speech examination: intact Sensorimotor examination: intact Detailed motor examination: grossly full strength in all extremities Detailed sensory examination: intact - Psychiatric Psychiatric: cooperative Results - Laboratory Findings CBC and BMP: 10/19/17 07:43 10/19/17 07:43 Abnormal Lab Findings: Abnormal Labs 10/16/17 10/16/17 10/16/17 14:36 15:18 15:18 RBC 3.25 L Hgb 10.0 L Hct 29.7 L Eosinophils # Sodium 130 L Chloride 97 L Glucose U Tricyclic Antidepress Detected H 10/18/17 10/18/17 10/19/17 07:58 07:58 07:43 RBC 3.62 L 3.32 L Hgb 11.0 L 10.3 L Hct 33.4 L 29.9 L Eosinophils # 1.2 H Sodium 136 L Chloride Glucose 129 H U Tricyclic Antidepress 10/19/17 07:43 RBC Hgb Hct Eosinophils # Sodium 134 L Chloride Glucose U Tricyclic Antidepress Assessment and Plan (1) Neurocognitive disorder Current Visit: Yes Status: Acute SNOMED Code(s): 964463293 (2) Seizure disorder Current Visit: Yes Status: Acute SNOMED Code(s): 003651775 Plan: The patient is a 72-year-old man with neurocognitive disorder and history of seizures. Recommend to have restarting Depakote 500 every 8 hours. Continue Vimpat as before. Recommend check Depakote level in 48 hours and if therapeutic and discontinue Vimpat.
[2017-10-20] MEDS: LORazepam 0.5 MG TAB PO SCH ×3 (04:42→21:06)
[2017-10-20] MEDS: VANCOMYCIN 1,500 MG in SODIUM CHLORIDE 0.9% 250 ML IVPB SCH ×2 (06:00→21:03)
[2017-10-20] MEDS: PANTOPRAZOLE 40 MG TABLET PO SCH (08:43)
[2017-10-20] MEDS: amLODIPine 10 MG TAB PO SCH (08:43)
[2017-10-20] MEDS: ENOXAPARIN 40 MG/0.4 ML SYRINGE SQ SCH (08:43)
[2017-10-20] MEDS: CEFEPIME 2 GM in SODIUM CHLORIDE 0.9% 50 ML IVPB SCH (08:44)
[2017-10-20] MEDS: NICOTINE 21MG/24HR PATCH TRANSDERM SCH (08:44)
[2017-10-20] MEDS: METOPROLOL SUCCINATE (ER) 50 MG TAB.ER.24H PO SCH (08:44)
[2017-10-20] MEDS: LACOSAMIDE 50 MG TABLET PO SCH ×2 (08:50→21:06)
--- NOTE | 2017-10-20 08:54 | P.DS ---
Providers Date of admission: 10/18/17 08:11 Expected date of discharge: 10/20/17 Attending physician: Cosme Giron Consults: 10/16/17 19:31 Consult Physician Urgent Consulting Provider: Evangelina Antonio Consult Reason/Comments: aggressive behavior Do you want consulting provider notified?: Yes 10/16/17 19:36 Consult Physician Urgent Consulting Provider: Brenda Villalobos Consult Reason/Comments: leg wounds Do you want consulting provider notified?: Yes 10/19/17 12:10 Consult Physician Routine Consulting Provider: Charla Allen Consult Reason/Comments: medication evaluation, agitiation vs dementia, Do you want consulting provider notified?: Yes Primary care physician: [facility] Course: Final Diagnoses: 1. Bilateral leg cellulitis,venous stasis ulcers,right greater than left with failure of outpatient treatment. Wound cultures currently growing Gram Neg Bacilli, Presumptive Staph aureus,Group D Enterococcus 2. Hyponatremia, improving 3. Possible psychosis, possible schizophrenia exacerbation 4. Dementia 5. Gastroesophageal reflux disease 6. History of MRSA Hospital course:This a 72-year-old gentleman admitted with bilateral lower extremity cellulitis venous stasis ulcers, hyponatremia, possible psychosis. Maintained on antibiotics/local wound care as per infectious disease. Evaluated by psychiatry and neurology with recommendations noted. Cooperative with no aggressive behavior reported. Depakote resumed. Depakote level to be obtained in 48 hours, with Vimpat to be discontinued if Depakote level therapeutic as per neurology. Significant clinical improvement. Cleared by neurology for discharge. Patient will be discharged to subacute rehab in a stable condition with guarded prognosis -when cleared by both psychiatry and infectious disease, final culture results pending. EXAM: GENERAL: Sitting up in bed, alert and oriented 1,no acute distress CARDIOVASCULAR: S1, S2 muffled. No murmur RESPIRATION: Breath sounds diminished in the bases. Occasional scattered rhonchi and crackles. ABDOMEN: Soft, nontender . No guarding. no masses palpable. Bowel sounds heard. LEGS: Improving Bilateral leg cellulitis with venous stasis wounds present. Dressings clean dry and intact. NERVOUS SYSTEM: No focal deficits. The impression and plan of care has been dictated as directed. : I performed a history and examination of this patient, discussed the same with the dictator. I agree with the dictator's note ,documented as a scribe. Any additional findings or plans will be noted. Time taken: 35 minutes Patient Condition at Discharge: Stable Plan - Discharge Summary Discharge Rx Participant: No New Discharge Prescriptions: New amLODIPine [Norvasc] 10 mg PO DAILY tab Divalproex Sodium [Depakote] 500 mg PO Q8H #1 tablet. QUEtiapine [SEROquel] 25 mg PO TID PRN tab PRN Reason: Agitation Continue Metoprolol Succinate (ER) [Toprol XL] 50 mg PO DAILY Atorvastatin [Lipitor] 40 mg PO HS Omeprazole 40 mg PO DAILY Nicotine 21Mg/24Hr Patch [Habitrol] 1 patch TRANSDERM DAILY #0 patch QUEtiapine [SEROquel] 100 mg PO HS tab Tamsulosin [Flomax] 0.4 mg PO PC-SUPPER cap.er.24h Lacosamide [Vimpat] 50 mg PO Q12H Mupirocin 2% Oint [Bactroban 2% Oint] 1 applic TOPICAL MOTUWETHFR LORazepam [Ativan] 0.5 mg PO Q8H PRN #9 tab PRN Reason: Anxiety Discontinued Mupirocin 2% Oint [Bactroban 2% Oint] 1 applic TOPICAL DAILY PRN PRN Reason: See Comments Discharge Medication List Atorvastatin [Lipitor] 40 mg PO HS 09/08/17 [History] Metoprolol Succinate (ER) [Toprol XL] 50 mg PO DAILY 09/08/17 [History] Omeprazole 40 mg PO DAILY 09/08/17 [History] Nicotine 21Mg/24Hr Patch [Habitrol] 1 patch TRANSDERM DAILY #0 patch 09/22/17 [ Rx] QUEtiapine [SEROquel] 100 mg PO HS tab 09/22/17 [Rx] Tamsulosin [Flomax] 0.4 mg PO PC-SUPPER cap.er.24h 09/22/17 [Rx] Lacosamide [Vimpat] 50 mg PO Q12H 10/16/17 [History] Mupirocin 2% Oint [Bactroban 2% Oint] 1 applic TOPICAL MOTUWETHFR 10/16/17 [ History] Divalproex Sodium [Depakote] 500 mg PO Q8H #1 tablet. 10/20/17 [Rx] LORazepam [Ativan] 0.5 mg PO Q8H PRN #9 tab 10/20/17 [Rx] QUEtiapine [SEROquel] 25 mg PO TID PRN tab 10/20/17 [Rx] amLODIPine [Norvasc] 10 mg PO DAILY tab 10/20/17 [Rx] Follow up Appointment(s)/Referral(s): [facility], at [facility] [Other] - 1 Week Johan Boothe MD [Primary Care Provider] - 3 Days Nydia Allen MD [STAFF PHYSICIAN] - 2 Weeks Activity/Diet/Wound Care/Special Instructions: [facility] Depakote level in 48 hours, DC Vimpat if therapeutic antibiotics as per ID CBC, BMP in 3 days Diet: Regular Activity: As tolerated Discharge Disposition: TRANSFER TO SNF/ECF
[2017-10-20 09:31] LABS: Basophils % (A) 0 %; Eosinophils # (A) 1.1 k/uL (0-0.7); Eosinophils % (A) 13 %; HCT 30.6 % (39.0-53.0); HGB 10.4 gm/dL (13.0-17.5); Lymphocytes # (A) 1.7 k/uL (1.0-4.8); Lymphocytes % (A) 20 %; MCH 30.8 pg (25.0-35.0); MCV 90.8 fL (80.0-100.0); Mean Platelet Volume 7.5; Monocytes # (A) 0.6 k/uL (0-1.0); Monocytes % (A) 7 %; Neutrophils # (A) 4.9 k/uL (1.3-7.7); Neutrophils % (A) 58 %; Platelet Count 195 k/uL (150-450); RBC 3.37 m/uL (4.30-5.90); RDW 14.4 % (11.5-15.5); WBC 8.5 k/uL (3.8-10.6)
[2017-10-20] MEDS: VALPROATE SODIUM 500 MG in SODIUM CHLORIDE 0.9% 50 ML IVPB SCH ×2 (09:36→17:00)
[2017-10-20 09:55] LABS: Anion Gap 8 mmol/L; Blood Urea Nitrogen 16 mg/dL (9-20); Calcium 8.4 mg/dL (8.4-10.2); Carbon Dioxide 22 mmol/L (22-30); Chloride 104 mmol/L (98-107); Glucose 98 mg/dL (74-99); Potassium 4.8 mmol/L (3.5-5.1); Sodium 134 mmol/L (137-145)
--- NOTE | 2017-10-20 14:40 | PN ---
PROGRESS NOTE DATE OF SERVICE: 10/20/2017 REASON FOR FOLLOWUP: Right lower extremity venous stasis ulcer and secondary cellulitis. INTERVAL HISTORY: The patient is currently afebrile. He is more awake, alert. He is breathing comfortably. Denies having any chest pain, any cough. No abdominal pain or pain to the right leg area. PHYSICAL EXAMINATION: On examination, blood pressure 116/61 with a pulse of 63, temperature 97. He is 95% on room air. General description is an elderly male lying in bed in no distress. RESPIRATORY SYSTEM: Unlabored breathing, clear to auscultation anteriorly. HEART: S1, S2. Regular rate and rhythm. ABDOMEN: Soft, no tenderness. LABS: Wound culture finalized with Pseudomonas aeruginosa, MRSA, Enterococcus faecalis. DIAGNOSTIC IMPRESSION AND PLAN: Patient with right lower extremity wound with secondary cellulitis. Wound culture with multiple pathogens. Recommend local wound care to continue with [facility]. Antibiotic will be adjusted to ciprofloxacin and doxycycline for about a week. Continue supportive care. MMODL / IJN: [id number] /
--- NOTE | 2017-10-20 16:39 | P.PN ---
Progress Note - Text Progress Note Date: 10/20/17 Interval History: Patient is a 72-year-old male who is being seen in follow-up to a psychiatric consultation. Patient was seen in his room. Patient was lying in bed in no acute distress, does have some difficulty hearing. Patient stated that he hadn't eaten and then stated he was hungry. Patient stated he was watching television. Mental Status: Patient is alert and oriented to person, his speech is of normal volume and rhythm, is coherent. His responses are brief and non- elaborative, mostly saying yes or no to questions. Patient was cooperative, made eye contact and did not exhibit any psychomotor agitation or retardation. Patient's mood appeared pleasant and his affect is blunted. Patient does not appear to be responding to internal stimuli. Patient is not expressing any current suicidal or homicidal ideation. Assessment: Patient has been restarted on his Depakote, he has not received any Ativan since morning, he has not received any Seroquel as needed since October 18. No reports of any assaultive or agitated behavior or nursing staff, the patient has been feeding himself and his appetite is been good. Patient has been compliant with medication. Plan: Patient continues on Seroquel 100 mg at bedtime and Seroquel 25 mg 3 times a day as needed. Patient has not exhibited any agitated assaultive behavior on the floor, he last received additional Seroquel on October 18 and has not received any Ativan since morning. Would continue the patient on the Seroquel 100 mg at bedtime, recommend continuing using Seroquel as needed for agitation once he is discharged and not use Ativan as this can cause more disinhibition and confusion in someone with a neurocognitive disorder. Patient does not require an inpatient psychiatric admission. Patient was stable in the past when he was on Seroquel 100 mg at bedtime and Depakote to control his seizure disorder. There is no reason at this time to increase his dose of Seroquel. I will sign off the case.
[2017-10-20] MEDS: TAMSULOSIN 0.4 MG CAP.ER.24H PO SCH (17:27)
[2017-10-20] MEDS: QUEtiapine 100 MG TAB PO SCH (21:04)
[2017-10-20] MEDS: ATORVASTATIN 40 MG TAB PO SCH (21:04)
[2017-10-21] MEDS: VALPROATE SODIUM 500 MG in SODIUM CHLORIDE 0.9% 50 ML IVPB SCH ×3 (02:40→16:33)
[2017-10-21] MEDS: CEFEPIME 2 GM in SODIUM CHLORIDE 0.9% 50 ML IVPB SCH ×2 (03:53→09:14)
[2017-10-21] MEDS: LORazepam 0.5 MG TAB PO SCH ×2 (04:57→11:28)
[2017-10-21] MEDS ORDERED: VANCOMYCIN TROUGH DUE 1 EACH MISC MISCELLANE ONE (06:00)
[2017-10-21 06:06] VITALS: BP 140/70; PULSE 60; RESP 18; TEMP 96.6
[2017-10-21 08:21] LABS: Basophils % (A) 0 %; Eosinophils # (A) 0.9 k/uL (0-0.7); Eosinophils % (A) 12 %; HCT 31.4 % (39.0-53.0); HGB 10.5 gm/dL (13.0-17.5); Lymphocytes # (A) 1.6 k/uL (1.0-4.8); Lymphocytes % (A) 23 %; MCH 30.5 pg (25.0-35.0); MCHC 33.4 g/dL (31.0-37.0); MCV 91.3 fL (80.0-100.0); Mean Platelet Volume 7.4; Monocytes # (A) 0.5 k/uL (0-1.0); Monocytes % (A) 7 %; Neutrophils # (A) 3.9 k/uL (1.3-7.7); Neutrophils % (A) 55 %; Platelet Count 186 k/uL (150-450); RBC 3.44 m/uL (4.30-5.90); RDW 14.6 % (11.5-15.5); WBC 7.1 k/uL (3.8-10.6)
[2017-10-21 08:47] LABS: Anion Gap 7 mmol/L; Blood Urea Nitrogen 12 mg/dL (9-20); Calcium 8.7 mg/dL (8.4-10.2); Carbon Dioxide 24 mmol/L (22-30); Chloride 105 mmol/L (98-107); Glucose 90 mg/dL (74-99); Potassium 4.3 mmol/L (3.5-5.1); Sodium 136 mmol/L (137-145)
[2017-10-21] MEDS: PANTOPRAZOLE 40 MG TABLET PO SCH (09:01)
[2017-10-21] MEDS: VANCOMYCIN 1,500 MG in SODIUM CHLORIDE 0.9% 250 ML IVPB SCH (09:01)
[2017-10-21] MEDS: NICOTINE 21MG/24HR PATCH TRANSDERM SCH (09:01)
[2017-10-21] MEDS: ENOXAPARIN 40 MG/0.4 ML SYRINGE SQ SCH (09:02)
[2017-10-21] MEDS: METOPROLOL SUCCINATE (ER) 50 MG TAB.ER.24H PO SCH (09:02)
[2017-10-21] MEDS: amLODIPine 10 MG TAB PO SCH (09:02)
[2017-10-21] MEDS: LACOSAMIDE 50 MG TABLET PO SCH (09:02)
--- NOTE | 2017-10-21 14:59 | DS ---
DISCHARGE SUMMARY DATE OF SERVICE: 10/21/2017 INTERVAL HISTORY: This 72-year-old gentleman was admitted with bilateral leg cellulitis, had some stasis ulcer and multiple organisms grown from the culture. The patient is being discharged in stable with guarded prognosis. Total time taken: 35 minutes. Please refer to the previous dictation for discharge diagnosis and list of medication. On exam, vital signs are stable. Cardiovascular: S1, S2. Abdomen soft. Nervous system: Diffusely weak. Bilateral leg ulcers improving. MMODL / IJN: [id number] /
--- NOTE | 2017-10-21 14:59 | PN ---
PROGRESS NOTE DATE OF SERVICE: 10/20/2017. INTERVAL HISTORY: This 72-year-old gentleman who was admitted with bilateral leg cellulitis is slated to go to [facility]. The patient is on IV antibiotics. No chest pain. No palpitations. No fever. EXAM: Pulse 60, blood pressure 116/64. Respirations 16. Temperature 97 degrees, pulse ox 94% on room air. HEENT: Conjunctivae normal. Neck is no jugular venous distention. CARDIOVASCULAR: S1, S2 muffled. RESPIRATORY: Breath sounds diminished in the bases. A few scattered rhonchi. ABDOMEN: Soft. Legs: Bilateral leg edema. CENTRAL NERVOUS SYSTEM: No focal deficits. LABORATORY DATA: Hemoglobin 10.5. ASSESSMENT: 1. Bilateral leg cellulitis, venous stasis ulcer, right greater than the left with failure of outpatient treatment growing multiple organisms, Staph aureus, group D enterococcus. 2. Hyponatremia. 3. Possible psychosis, possible schizophrenia. 4. Dementia. 5. Gastroesophageal reflux disease. 6. History of MRSA. RECOMMENDATIONS AND DISCUSSION: Recommend to continue current medications, management and symptomatic treatment. Otherwise, continue with antibiotics per Infectious Disease. Psychiatric is following the patient closely. I discussed with the family. Guarded prognosis. Further recommendations to follow. MMODL / IJN: [id number] /
--- NOTE | 2017-10-21 16:23 | PN ---
PROGRESS NOTE DATE OF SERVICE: 10/21/2017. REASON FOR FOLLOWUP: Right leg venous stasis ulcers and secondary cellulitis. INTERVAL HISTORY: The patient is currently afebrile. He is breathing comfortably. Denies having any chest pain. No cough. No abdominal pain. Pain to the right leg area. EXAMINATION: Blood pressure 140/70 with a pulse of 68, temperature 96.6. He is 93% on room air. General description is an elderly male lying in bed in no distress. Respiratory system unlabored breathing. Clear to auscultation anteriorly. Heart S1, S2. Regular rate and rhythm. Abdomen soft, no tenderness. Right leg is currently dressed up. No obvious drainage on the dressing. LABS: Hemoglobin is 10.5, white count 7.1, creatinine 0.71. DIAGNOSTIC IMPRESSION AND PLAN: Patient with right leg venous stasis ulcer and secondary cellulitis, culture with multiple pathogens. Plan to finish therapy with oral Cipro and doxycycline for about a week. Local wound care with Medih[facility]. Continue supportive care. MMODL / IJN: [id number] /
[2017-10-21] MEDS: QUEtiapine 25 MG TAB PO PRN (16:34)
[2017-10-21] MEDS ORDERED: VANCOMYCIN 1,250 MG in SODIUM CHLORIDE 0.9% 250 ML IVPB SCH (21:00)
== END 2017-10-21 17:35 | DRG 603 ==
LOC: EC 14:18 → 4MS4W 19:35 → OBSVTOIN 10-18 08:11
PROVIDERS: ADMIT Hospitalist; ATTEND Hospitalist
DX: L03.116 Cellulitis of left lower limb (principal); E87.1 Hypo-osmolality and hyponatremia; F03.91 Unspecified dementia, unspecified severity, with behavioral disturbance; L97.919 Non-pressure chronic ulcer of unspecified part of right lower leg with unspecified severity; L97.929 Non-pressure chronic ulcer of unspecified part of left lower leg with unspecified severity; L03.115 Cellulitis of right lower limb; D64.9 Anemia, unspecified; E78.5 Hyperlipidemia, unspecified; F17.200 Nicotine dependence, unspecified, uncomplicated; F20.9 Schizophrenia, unspecified; G40.909 Epilepsy, unspecified, not intractable, without status epilepticus; I10 Essential (primary) hypertension; K21.9 Gastro-esophageal reflux disease without esophagitis; Z79.899 Other long term (current) drug therapy; Z85.46 Personal history of malignant neoplasm of prostate; B95.62 Methicillin resistant Staphylococcus aureus infection as the cause of diseases classified elsewhere; B96.5 Pseudomonas (aeruginosa) (mallei) (pseudomallei) as the cause of diseases classified elsewhere; I87.2 Venous insufficiency (chronic) (peripheral)
CPT/HCPCS: 36415; 80048; 80202; 80306; 80320; 81003; 83520; 85025; 87070; 87077; 87186; 87205; 99285